=== PATIENT | male | born 1975 | race Caucasian/White ===

== ENCOUNTER → 2016-11-05 | Outpatient (CLI) | payer OTHER ==
[2016-11-05 08:15] LABS: CHLORIDE,CL 104 mmol/L (98-110); SODIUM,NA 139 mmol/L (136-146)
== END ==
LOC: MW.CHFP 07:32
PROVIDERS: ATTEND Student in an Organized Health Care Education/Training Program
DX: I10 Essential (primary) hypertension (principal); E78.00 Pure hypercholesterolemia, unspecified; E11.65 Type 2 diabetes mellitus with hyperglycemia; E11.69 Type 2 diabetes mellitus with other specified complication; E78.5 Hyperlipidemia, unspecified
CPT/HCPCS: 36415; 80053; 80061; 82044; 83036

== ENCOUNTER 2017-02-04 09:22 | Emergency (ER) | payer OTHER ==
[2017-02-04] MEDS ORDERED: Sodium Chloride 0.9% 10 ML Syringe FLUSH PRN (09:33)
[2017-02-04] MEDS ORDERED: Sodium Chloride 0.9% 2.5 ML Syringe FLUSH PRN (09:33)
[2017-02-04] MEDS ORDERED: Aspirin 81 MG Tab.Chew PO ONE (09:38)
--- NOTE | 2017-02-04 09:38 | EDM.PDOC ---
ED HPI GENERAL MEDICAL PROBLEM - General Stated Complaint: Palpitations Time Seen by Provider: 02/04/17 09:26 - History of Present Illness INITIAL COMMENTS - FREE TEXT/NARRATIVE: HISTORY AND PHYSICAL: History of present illness: The patient is a 41-year-old male with a history of diabetes and follows in our family practice clinic and also sees Dr. Eason with whom he had a incisional hernia repair several weeks ago and this patient presented to the clinic to see Dr. Eason today for a follow-up and he was noted to have an elevated heart rate. The patient admits that he has had palpitations and a racing heart episodically over the last few days occurring approximately 2-3 times a day and lasting 5-10 minutes. It never wakes him from sleep and he says he has a lot of stressors in his life. The patient states he feels short of breath but has been short of breath for his many months mostly with activity and that is not new with these palpitations. The patient doesn't feel lightheaded or dizzy has no abdominal pain except at the incision which is again not new and has had no vomiting or diarrhea. He does say that he has some calf tenderness but there is no gross swelling and otherwise here in the ED he is asymptomatic. Dr Eason personally brought him over from the clinic because he was concerned that his heart rate was near 200 in his clinic. At that time the patient had no symptomatology and he currently has a heart rate of 90 here but says he feels like he has some palpitations. In the ER the patient denies any complaints of any chest pain shortness of breath palpitations. Review of systems: As per history of present illness and below otherwise all systems reviewed and negative. Past medical history: As per history of present illness and as reviewed below otherwise noncontributory. Surgical history: As per history of present illness and as reviewed below otherwise noncontributory. Social history: No reported history of drug or alcohol abuse. Family history: As per history of present illness and as reviewed below otherwise noncontributory. Physical exam: Gen.: Well-developed obese man who is nontoxic and speaking clearly. Vital signs been noted by me. HEENT: Atraumatic, normocephalic, pupils reactive, negative for conjunctival pallor or scleral icterus, mucous membranes moist, throat clear, neck supple, nontender, trachea midline. Lungs: Clear to auscultation, breath sounds equal bilaterally, chest nontender. No worker breathing or sensory muscle use Heart: S1S2, regular, negative for clicks, rubs, or JVD. Abdomen: Soft, nondistended, nontender. There is a midline abdominal incision and an abdominal binder in place. Wound has some surrounding erythema but is nontender and bowel sounds are normoactive. Sutures are still seen in place. Negative for masses or hepatosplenomegaly. Negative for costovertebral tenderness. Pelvis: Stable nontender. Genitourinary: Deferred. Rectal: Deferred. Extremities: Atraumatic, negative for cords or calf pain. Neurovascular unremarkable. No pedal edema or leg asymmetry Neuro: Awake, alert, oriented. Cranial nerves II through XII unremarkable. Cerebellum unremarkable. Motor and sensory unremarkable throughout. Exam nonfocal. Diagnostics: EKG CBC CMP INR troponin TSH UA CTA of the chest Therapeutics: IV O2 monitor Patient currently is asymptomatic so I will only give aspirin I discussed all testing results with the patient and have offered him 23 hour observation admission or Holter monitor and follow up with his provider. States he has an appointment with Dr. Edilberto Gibson in the clinic on Wednesday. Unfortunately we do not have any Holter monitors available until Wednesday so the patient is aware of that as well. He states that he would prefer to defer admission and go home and follow-up with Dr. Gibson and have a Holter placed on Wednesday. I've advised him on risk benefits and he accepts those and he overall is a very anxious individual on my evaluation. In the ED he has not had a tachycardic rhythm and has been stable throughout the workup. I will discuss this case with Dr. Edilberto Gibson and get his input. 1232: Case was discussed with Dr. Edilberto Gibson and he feels comfortable with seeing the patient on Wednesday and request that a 48 hour Holter be placed on Wednesday. I told the patient about this conversation and again stressed reasons to return and reasons to keep his appointments on Wednesday Impression: Episodic palpitations stable Definitive disposition and diagnosis as appropriate pending reevaluation and review of above. - Related Data Allergies Allergy/AdvReac Type Severity Reaction Status Date / Time house dust Allergy Other Verified 02/04/17 09:46 mold Allergy Shortness Verified 02/04/17 09:46 of Breath dust Allergy Shortness Uncoded 02/04/17 09:46 of Breath Home Meds: Home Meds Lisinopril 10 mg PO DAILY 07/25/15 [History] metFORMIN [Glucophage] 1,000 mg PO BIDMEALS 07/30/15 [History] Acetaminophen/oxyCODONE [Percocet 325-10 MG] 1 tab PO Q4H PRN #40 tablet [Rx] Ondansetron [Zofran ODT] 4 mg PO Q4H #10 tab.dis 08/05/15 [Rx] Linezolid [Zyvox] 600 mg PO Q12H #28 tablet 08/30/15 [Rx] glipiZIDE [Glipizide ER] 2.5 mg PO DAILY 10/20/15 [History] Past Medical History HEENT History: Reports: Other (See Below) Other HEENT History: Wears eyeglasses Cardiovascular History: Reports: High Cholesterol, Hypertension Respiratory History: Reports: Asthma Other Respiratory History: seasonal asthma Other Gastrointestinal History: occasional heartburn Genitourinary History: Reports: None Musculoskeletal History: Reports: Arthritis Other Musculoskeletal History: arthritis in rt knee Neurological History: Reports: None Psychiatric History: Reports: Anxiety, Depression Endocrine/Metabolic History: Reports: Diabetes, Type II, Obesity/BMI 30+ Hematologic History: Reports: None Immunologic History: Reports: None Oncologic (Cancer) History: Reports: None Dermatologic History: Reports: None - Infectious Disease History Infectious Disease History: Reports: Chicken Pox, Influenza - Past Surgical History GI Surgical History: Reports: Hernia, Abdominal, Hernia, Inguinal, Hernia Repair /Other Social & Family History - Family History Family Medical History: Noncontributory HEENT: Reports: Cataract Cardiac: Reports: Heart Failure, Pacemaker Respiratory: Reports: Asthma, Other (See Below) Other Respiratory Family Hisory: Pneumonia GI: Reports: Diverticulitis : Reports: Renal Calculus Musculoskeletal: Reports: Arthritis Neurological: Reports: Migraines Psychiatric: Reports: Depression Endocrine/Metabolic: Reports: Diabetes, type II, Obesity/MBI 30+ Oncologic: Reports: Prostate, Renal - Tobacco Use Smoking Status *Q: Never Smoker Second Hand Smoke Exposure: No - Recreational Drug Use Recreational Drug Use: No Drug Use in Last 12 Months: No ED ROS GENERAL - Review of Systems Review Of Systems: ROS reveals no pertinent complaints other than HPI. (See dictation) ED EXAM, GENERAL - Physical Exam Exam: See Below (See dictation) Course - Vital Signs Last Recorded V/S: Last Vital Signs Temp 36.7 C 02/04/17 09:22 Pulse 95 02/04/17 09:22 Resp 23 H 02/04/17 09:22 BP 152/85 H 02/04/17 09:22 Pulse Ox 98 02/04/17 09:22 - Orders/Labs/Meds Orders: Active Orders 24 hr Category Date Time Status Cardiac Monitoring [RC] . DIRECTED Care 02/04/17 09:33 Active EKG Documentation Completion [RC] STAT Care 02/04/17 09:33 Active Oxygen Therapy, ED [RC] ASDIRECTED Care 02/04/17 09:33 Active Pulse Oximetry [RC] ASDIRECTED Care 02/04/17 09:33 Active Sodium Chloride 0.9% [Saline Flush] Med 02/04/17 09:33 Active 10 ml FLUSH ASDIRECTED PRN Sodium Chloride 0.9% [Saline Flush] Med 02/04/17 09:33 Active 2.5 ml FLUSH ASDIRECTED PRN Saline Lock Insert [OM.PC] Stat Oth 02/04/17 09:33 Ordered Medication Orders Sodium Chloride (Saline Flush) 10 ml FLUSH ASDIRECTED PRN PRN Reason: Keep Vein Open Sodium Chloride (Saline Flush) 2.5 ml FLUSH ASDIRECTED PRN PRN Reason: Keep Vein Open Labs: Laboratory Tests 02/04/17 02/04/17 02/04/17 Range/Units 09:46 09:46 09:46 WBC 7.11 (4.0-11.0) K/uL RBC 4.33 L (4.50-5.90) M/uL Hgb 12.3 L (13.0-17.0) g/dL Hct 38.8 (38.0-50.0) % MCV 89.6 (80.0-98.0) fL MCH 28.4 (27.0-32.0) pg MCHC 31.7 (31.0-37.0) g/dL RDW Std Deviation 45.8 (28.0-62.0) fl RDW Coeff of [place]isl[place] 14 (11.0-15.0) % Plt Count 264 (150-400) K/uL MPV 9.10 (7.40-12.00) fL Neut % (Auto) 74.3 (48.0-80.0) % Lymph % (Auto) 14.2 L (16.0-40.0) % [place] % (Auto) 11.1 (0.0-15.0) % Eos % (Auto) 0.0 (0.0-7.0) % Baso % (Auto) 0.4 (0.0-1.5) % Neut # (Auto) 5.3 (1.4-5.7) K/uL Lymph # (Auto) 1.0 (0.6-2.4) K/uL [place] # (Auto) 0.8 (0.0-0.8) K/uL Eos # (Auto) 0.0 (0.0-0.7) K/uL Baso # (Auto) 0.0 (0.0-0.1) K/uL Nucleated RBC % 0.0 /100WBC Nucleated RBCs # 0 K/uL INR 0.99 (0.86-1.11) Sodium 139 (136-146) mmol/L Potassium 4.7 (3.5-5.1) mmol/L Chloride 104 (98-110) mmol/L Carbon Dioxide 25 (21-31) mmol/L BUN 16 (6.0-23.0) mg/dL Creatinine 0.8 (0.6-1.5) mg/dL Est Cr Clr Drug Dosing 119.89 mL/min Estimated GFR (MDRD) > 60.0 ml/min Glucose 130 H (60-110) mg/dL Calcium 9.2 (8.8-10.8) mg/dL Total Bilirubin 0.5 (0.1-1.5) mg/dL AST 16 (5-40) IU/L ALT 24 (8-54) IU/L Alkaline Phosphatase 68 (40-150) Troponin I (0.0-0.29) NG/ML Total Protein 7.3 (6.0-8.0) g/dL Albumin 4.1 (3.5-5.0) g/dL Globulin 3.2 (2.0-3.5) g/dL Albumin/Globulin Ratio 1.3 (1.3-2.8) TSH 3rd Generation 1.47 (0.47-5.0) uIU/mL Urine Color Urine Appearance Urine pH (5.0-8.0) Ur Specific Burton (1.001-1.035) Urine Protein (NEGATIVE) mg/dL Urine Glucose (UA) (NEGATIVE) mg/dL Urine Ketones (NEGATIVE) mg/dL Urine Occult Blood (NEGATIVE) Urine Nitrite (NEGATIVE) Urine Bilirubin (NEGATIVE) Urine Urobilinogen (<2.0) EU/dL Ur Leukocyte Esterase (NEGATIVE) Urine RBC (0-2/HPF) Urine WBC (0-5/HPF) Ur Epithelial Cells (NONE-FEW) Urine Bacteria (NEGATIVE) 02/04/17 02/04/17 Range/Units 09:46 10:46 WBC (4.0-11.0) K/uL RBC (4.50-5.90) M/uL Hgb (13.0-17.0) g/dL Hct (38.0-50.0) % MCV (80.0-98.0) fL MCH (27.0-32.0) pg MCHC (31.0-37.0) g/dL RDW Std Deviation (28.0-62.0) fl RDW Coeff of [place]isl[place] (11.0-15.0) % Plt Count (150-400) K/uL MPV (7.40-12.00) fL Neut % (Auto) (48.0-80.0) % Lymph % (Auto) (16.0-40.0) % [place] % (Auto) (0.0-15.0) % Eos % (Auto) (0.0-7.0) % Baso % (Auto) (0.0-1.5) % Neut # (Auto) (1.4-5.7) K/uL Lymph # (Auto) (0.6-2.4) K/uL [place] # (Auto) (0.0-0.8) K/uL Eos # (Auto) (0.0-0.7) K/uL Baso # (Auto) (0.0-0.1) K/uL Nucleated RBC % /100WBC Nucleated RBCs # K/uL INR (0.86-1.11) Sodium (136-146) mmol/L Potassium (3.5-5.1) mmol/L Chloride (98-110) mmol/L Carbon Dioxide (21-31) mmol/L BUN (6.0-23.0) mg/dL Creatinine (0.6-1.5) mg/dL Est Cr Clr Drug Dosing mL/min Estimated GFR (MDRD) ml/min Glucose (60-110) mg/dL Calcium (8.8-10.8) mg/dL Total Bilirubin (0.1-1.5) mg/dL AST (5-40) IU/L ALT (8-54) IU/L Alkaline Phosphatase (40-150) Troponin I < 0.10 (0.0-0.29) NG/ML Total Protein (6.0-8.0) g/dL Albumin (3.5-5.0) g/dL Globulin (2.0-3.5) g/dL Albumin/Globulin Ratio (1.3-2.8) TSH 3rd Generation (0.47-5.0) uIU/mL Urine Color YELLOW Urine Appearance CLEAR Urine pH 5.5 (5.0-8.0) Ur Specific [place] <= 1.005 (1.001-1.035) Urine Protein NEGATIVE (NEGATIVE) mg/dL Urine Glucose (UA) NEGATIVE (NEGATIVE) mg/dL Urine Ketones NEGATIVE (NEGATIVE) mg/dL Urine Occult Blood NEGATIVE (NEGATIVE) Urine Nitrite NEGATIVE (NEGATIVE) Urine Bilirubin NEGATIVE (NEGATIVE) Urine Urobilinogen 0.2 (<2.0) EU/dL Ur Leukocyte Esterase NEGATIVE (NEGATIVE) Urine RBC 0-1 (0-2/HPF) Urine WBC 0-1 (0-5/HPF) Ur Epithelial Cells RARE (NONE-FEW) Urine Bacteria FEW (NEGATIVE) Meds: Medications Generic Name Dose Route Start Last Admin Trade Name Herbert PRN Reason Stop Dose Admin Sodium Chloride 10 ml 02/04/17 09:33 Saline Flush FLUSH ASDIRECTED PRN Keep Vein Open Sodium Chloride 2.5 ml 02/04/17 09:33 Saline Flush FLUSH ASDIRECTED PRN Keep Vein Open Discontinued Medications Generic Name Dose Route Start Last Admin Trade Name Herbert PRN Reason Stop Dose Admin Aspirin 324 mg 02/04/17 09:38 02/04/17 10:02 Aspirin PO 02/04/17 09:39 324 mg ONETIME ONE Administration Iopamidol 100 ml 02/04/17 11:19 02/04/17 11:21 Isovue Multipack-370 (76%) IVPUSH 02/04/17 11:20 100 ml ONETIME STA Administration Departure - Departure Time of Disposition: 12:34 Disposition: Home, Self-Care 01 Condition: Good Clinical Impression: Palpitations - Discharge Information Referrals: PCP,None [Primary Care Provider] - Additional Instructions: The following information is given to patients seen in the emergency department who are being discharged to home. This information is to outline your options for follow-up care. We provide all patients seen in our emergency department with a follow-up referral. The need for follow-up, as well as the timing and circumstances, are variable depending upon the specifics of your emergency department visit. If you don't have a primary care physician on staff, we will provide you with a referral. We always advise you to contact your personal physician following an emergency department visit to inform them of the circumstance of the visit and for follow-up with them and/or the need for any referrals to a consulting specialist. The emergency department will also refer you to a specialist when appropriate. This referral assures that you have the opportunity for followup care with a specialist. All of these measure are taken in an effort to provide you with optimal care, which includes your followup. Under all circumstances we always encourage you to contact your private physician who remains a resource for coordinating your care. When calling for followup care, please make the office aware that this follow-up is from your recent emergency room visit. If for any reason you are refused follow-up, please contact the [facility] emergency department at and ask to speak to the emergency department charge nurse. [facility] Primary care- Internal Medicine and Family [address] [address] Please keep your appointment on Wednesday morning with Dr. Edilberto Gibson and return to ER as needed and as discussed. Try to reduce stressors in her life and avoid caffeine use. Please go on Wednesday to have a Holter monitor placed as we discussed. - My Orders Last 24 Hours: My Active Orders 02/04/17 09:33 Cardiac Monitoring [RC] . DIRECTED EKG Documentation Completion [RC] STAT Oxygen Therapy, ED [RC] ASDIRECTED Pulse Oximetry [RC] ASDIRECTED Sodium Chloride 0.9% [Saline Flush] 10 ml FLUSH ASDIRECTED PRN Sodium Chloride 0.9% [Saline Flush] 2.5 ml FLUSH ASDIRECTED PRN Saline Lock Insert [OM.PC] Stat - Assessment/Plan Last 24 Hours: My Active Orders 02/04/17 09:33 Cardiac Monitoring [RC] . DIRECTED EKG Documentation Completion [RC] STAT Oxygen Therapy, ED [RC] ASDIRECTED Pulse Oximetry [RC] ASDIRECTED Sodium Chloride 0.9% [Saline Flush] 10 ml FLUSH ASDIRECTED PRN Sodium Chloride 0.9% [Saline Flush] 2.5 ml FLUSH ASDIRECTED PRN Saline Lock Insert [OM.PC] Stat
[2017-02-04 10:17] LABS: CHLORIDE,CL 104 mmol/L (98-110); SODIUM,NA 139 mmol/L (136-146)
[2017-02-04] MEDS ORDERED: Iopamidol 755 MG/ML 500 ML Multipack Bottle IVPUSH STA (11:19)
--- NOTE | 2017-02-04 11:46 | CT ---
EXAMINATION: CTA chest HISTORY: Pain COMPARISON: 08/02/2015 TECHNIQUE: Axial CT images obtained through the chest following the administration of 50 mL of Isovu e-370. Additional 50 mL of Isovue-370 used to repeat study. Coronal and sagittal reconstructions obt ained. Mildly suboptimal bolus timing. FINDINGS: The lungs are clear without focal consolidation. No pleural effusion or pneumothorax. Mild dependent atelectasis. The heart is normal in size without a pericardial effusion. No mediastinal o r hilar lymphadenopathy. The main and central pulmonary arteries are patent without evidence of a pu lmonary embolism. The thoracic the central airways are clear. The thoracic aorta is normal in calibe r. Borderline axillary lymph nodes noted. The central airways are clear. No suspicious osseous abnor malities identified. IMPRESSION: 1. No acute cardiopulmonary process or pulmonary embolism identified. 2. A few borderline axillary lymph nodes bilaterally, given the size, likely reactive.
[2017-02-04 14:35] VITALS: BP 122/73
== END 2017-02-04 13:00 | disposition home or self-care (01) ==
LOC: MW.ED 09:22
DX: R00.2 Palpitations (principal); I10 Essential (primary) hypertension; E78.00 Pure hypercholesterolemia, unspecified; J45.909 Unspecified asthma, uncomplicated; M19.90 Unspecified osteoarthritis, unspecified site; F41.9 Anxiety disorder, unspecified; F32.9 Major depressive disorder, single episode, unspecified; E11.9 Type 2 diabetes mellitus without complications; E66.9 Obesity, unspecified; Z98.890 Other specified postprocedural states; Z79.84 Long term (current) use of oral hypoglycemic drugs; Z79.899 Other long term (current) drug therapy; Z91.09 Other allergy status, other than to drugs and biological substances
CPT/HCPCS: 36415; 71275; 80053; 81001; 84443; 84484; 85025; 85610; 93005; 99285; A9270; Q9967; 99284

== ENCOUNTER 2019-06-08 19:53 | Emergency (ER) | payer OTHER ==
[2019-06-08] MEDS ORDERED: Sodium Chloride 0.9% 1,000 ML IV ONE (20:05)
--- NOTE | 2019-06-08 20:10 | EDM.PDOC ---
<Micheal Lima - Last Filed: 06/08/19 22:40> ED HPI GENERAL MEDICAL PROBLEM - General Chief Complaint: Gastrointestinal Problem Stated Complaint: POST SURG. INFECTION Time Seen by Provider: 06/08/19 19:58 - Related Data Allergies Allergy/AdvReac Type Severity Reaction Status Date / Time house dust Allergy Other Verified 06/08/19 20:04 mold Allergy Shortness Verified 06/08/19 20:04 of Breath dust Allergy Shortness Uncoded 06/08/19 20:04 of Breath Home Meds: Home Meds Lisinopril 10 mg PO DAILY 07/25/15 [History] metFORMIN [Glucophage] 1,000 mg PO BIDMEALS 07/30/15 [History] Ondansetron [Zofran ODT] 4 mg PO Q4H #10 tab.dis 08/05/15 [Rx] glipiZIDE [Glipizide ER] 2.5 mg PO DAILY 10/20/15 [History] traMADol [Ultram] 50 mg PO ASDIRECTED 06/08/19 [History] Course - Vital Signs Text/Narrative:: CT scan demonstrated drain located in deep subcutaneous tissues of the upper pelvic wall there was gas in the soft tissues adjacent to the drain but no fluid collection there is moderate inflammatory changes around the catheter in the adjacent subcutaneous fat consistent with cellulitis this was discussed with Dr. Yanes general surgery was consulted who agrees with discharge home on and follow-up on Wednesday Last Recorded V/S: Last Vital Signs Temp 98.1 F 06/08/19 23:40 Pulse 99 06/08/19 23:40 Resp 16 06/08/19 23:40 BP 128/70 06/08/19 23:40 Pulse Ox 99 06/08/19 23:40 - Orders/Labs/Meds Labs: Laboratory Tests 06/08/19 06/08/19 06/08/19 Range/Units 20:16 20:16 20:16 WBC 9.28 (4.0-11.0) K/uL RBC 4.36 L (4.50-5.90) M/uL Hgb 12.9 L (13.0-17.0) g/dL Hct 40.1 (38.0-50.0) % MCV 92.0 (80.0-98.0) fL MCH 29.6 (27.0-32.0) pg MCHC 32.2 (31.0-37.0) g/dL RDW Std Deviation 45.6 (28.0-62.0) fl RDW Coeff of Aislinn 14 (11.0-15.0) % Plt Count 191 (150-400) K/uL MPV 9.90 (7.40-12.00) fL Neut % (Auto) 70.0 (48.0-80.0) % Lymph % (Auto) 16.1 (16.0-40.0) % Harvey % (Auto) 10.8 (0.0-15.0) % Eos % (Auto) 3.0 (0.0-7.0) % Baso % (Auto) 0.1 (0.0-1.5) % Neut # (Auto) 6.5 H (1.4-5.7) K/uL Lymph # (Auto) 1.5 (0.6-2.4) K/uL Harvey # (Auto) 1.0 H (0.0-0.8) K/uL Eos # (Auto) 0.3 (0.0-0.7) K/uL Baso # (Auto) 0.0 (0.0-0.1) K/uL Nucleated RBC % 0.0 /100WBC Nucleated RBCs # 0 K/uL Lactate 2.1 H (0.20-2.00) mmol/L Sodium 139 (136-148) mmol/L Potassium 4.1 (3.5-5.1) mmol/L Chloride 103 (98-107) mmol/L Carbon Dioxide 25.4 (21.0-32.0) mmol/L BUN 22 H (7.0-18.0) mg/dL Creatinine 0.8 (0.8-1.3) mg/dL Est Cr Clr Drug Dosing 116.61 mL/min Estimated GFR (MDRD) > 60.0 ml/min Glucose 211 H (74-106) mg/dL Calcium 8.3 L (8.5-10.1) mg/dL Total Bilirubin 0.3 (0.2-1.0) mg/dL AST 15 (15-37) IU/L ALT 25 (14-63) IU/L Alkaline Phosphatase 75 (46-116) U/L Total Protein 7.0 (6.4-8.2) g/dL Albumin 2.8 L (3.4-5.0) g/dL Globulin 4.2 H (2.6-4.0) g/dL Albumin/Globulin Ratio 0.7 L (0.9-1.6) Urine Color Urine Appearance Urine pH (5.0-8.0) Ur Specific Berne (1.001-1.035) Urine Protein (NEGATIVE) mg/dL Urine Glucose (UA) (NEGATIVE) mg/dL Urine Ketones (NEGATIVE) mg/dL Urine Occult Blood (NEGATIVE) Urine Nitrite (NEGATIVE) Urine Bilirubin (NEGATIVE) Urine Urobilinogen (<2.0) EU/dL Ur Leukocyte Esterase (NEGATIVE) 06/08/19 Range/Units 20:50 WBC (4.0-11.0) K/uL RBC (4.50-5.90) M/uL Hgb (13.0-17.0) g/dL Hct (38.0-50.0) % MCV (80.0-98.0) fL MCH (27.0-32.0) pg MCHC (31.0-37.0) g/dL RDW Std Deviation (28.0-62.0) fl RDW Coeff of Aislinn (11.0-15.0) % Plt Count (150-400) K/uL MPV (7.40-12.00) fL Neut % (Auto) (48.0-80.0) % Lymph % (Auto) (16.0-40.0) % Harvey % (Auto) (0.0-15.0) % Eos % (Auto) (0.0-7.0) % Baso % (Auto) (0.0-1.5) % Neut # (Auto) (1.4-5.7) K/uL Lymph # (Auto) (0.6-2.4) K/uL Harvey # (Auto) (0.0-0.8) K/uL Eos # (Auto) (0.0-0.7) K/uL Baso # (Auto) (0.0-0.1) K/uL Nucleated RBC % /100WBC Nucleated RBCs # K/uL Lactate (0.20-2.00) mmol/L Sodium (136-148) mmol/L Potassium (3.5-5.1) mmol/L Chloride (98-107) mmol/L Carbon Dioxide (21.0-32.0) mmol/L BUN (7.0-18.0) mg/dL Creatinine (0.8-1.3) mg/dL Est Cr Clr Drug Dosing mL/min Estimated GFR (MDRD) ml/min Glucose (74-106) mg/dL Calcium (8.5-10.1) mg/dL Total Bilirubin (0.2-1.0) mg/dL AST (15-37) IU/L ALT (14-63) IU/L Alkaline Phosphatase (46-116) U/L Total Protein (6.4-8.2) g/dL Albumin (3.4-5.0) g/dL Globulin (2.6-4.0) g/dL Albumin/Globulin Ratio (0.9-1.6) Urine Color YELLOW Urine Appearance CLEAR Urine pH 5.5 (5.0-8.0) Ur Specific Berne 1.025 (1.001-1.035) Urine Protein NEGATIVE (NEGATIVE) mg/dL Urine Glucose (UA) NEGATIVE (NEGATIVE) mg/dL Urine Ketones TRACE H (NEGATIVE) mg/dL Urine Occult Blood NEGATIVE (NEGATIVE) Urine Nitrite NEGATIVE (NEGATIVE) Urine Bilirubin NEGATIVE (NEGATIVE) Urine Urobilinogen 0.2 (<2.0) EU/dL Ur Leukocyte Esterase NEGATIVE (NEGATIVE) Meds: Medications Discontinued Medications Generic Name Dose Route Start Last Admin Trade Name Freq PRN Reason Stop Dose Admin Sodium Chloride 1,000 mls @ 999 mls/hr 06/08/19 20:05 06/08/19 20:24 Normal Saline IV 06/08/19 21:05 150 mls/hr STAT ONE Administration Cefazolin Sodium/Dextrose 1 gm 50 mls @ 100 mls/hr 06/08/19 22:54 06/08/19 23 :00 / Premix IV 06/08/19 23:23 100 mls/hr ONETIME ONE Administration Iopamidol 100 ml 06/08/19 21:52 06/08/19 21:53 Isovue Multipack-370 (76%) IVPUSH 06/08/19 21:53 100 ml ONETIME STA Administration Departure - Departure Time of Disposition: 22:42 Disposition: Home, Self-Care 01 Condition: Good Clinical Impression: History of diabetes mellitus, type II Cellulitis Qualifiers: Site of cellulitis: trunk Site of cellulitis of trunk: abdominal wall Qualified Code(s): L03.311 - Cellulitis of abdominal wall - Discharge Information Instructions: Cellulitis, Adult, [id number] Referrals: PCP,None [Primary Care Provider] - Forms: ED Department Discharge Additional Instructions: The following information is given to patients seen in the emergency department who are being discharged to home. This information is to outline your options for follow-up care. We provide all patients seen in our emergency department with a follow-up referral. The need for follow-up, as well as the timing and circumstances, are variable depending upon the specifics of your emergency department visit. If you don't have a primary care physician on staff, we will provide you with a referral. We always advise you to contact your personal physician following an emergency department visit to inform them of the circumstance of the visit and for follow-up with them and/or the need for any referrals to a consulting specialist. The emergency department will also refer you to a specialist when appropriate. This referral assures that you have the opportunity for follow-up care with a specialist. All of these measure are taken in an effort to provide you with optimal care, which includes your follow-up. Under all circumstances we always encourage you to contact your private physician who remains a resource for coordinating your care. When calling for follow-up care, please make the office aware that this follow-up is from your recent emergency room visit. If for any reason you are refused follow-up, please contact the [facility] Emergency Department at and asked to speak to the emergency department charge nurse. [facility] [address] [place] [id number] [id number] 1. Please keep the wound clean and dry, continue to perform wound care as previously done. 2. Take the antibiotic as directed. Continue to monitor for signs of improvement. 3. Call and see if you can make an expedite appointment with your surgeon in [place] for re-evaluation. 4. Return to the ED as needed as discussed. 5 follow-up in clinic on Wednesday [facility] - General Surgery Professional Building [address] [place] [address], [address] [place] [address] <Risa Dale E - Last Filed: 06/12/19 11:18> ED HPI GENERAL MEDICAL PROBLEM - General Source of Information: Reports: Patient History Limitations: Reports: No Limitations - History of Present Illness INITIAL COMMENTS - FREE TEXT/NARRATIVE: HISTORY AND PHYSICAL: History of present illness: Patient is a 44-year-old male who presents to the emergency room with concerns of increased drainage from a post surgical site. Patient reports he had a mass removed from his umbilicus area on 06/01/[address] Clancy at [facility]. Has history of multiple previous hernia surgeries. This surgery has a midline incision and an adjacent SENAIT drain to the left abdomen. Over the past several days following his surgery he had been inactive and had about 60mls of drainage per day coming from the SENAIT drain. Wednesday and Wednesday he returned to work and had increased his activity which also increased the drainage coming from the SENAIT site. He states he also noticed that his blood sugars have been running in the 200s which is high for him. He does take oral metformin (no insulin) to manage his diabetes. Noticed his urine was foul smelling and felt like he wasn't fully emptying his bladder. He called the surgeon in [place] and spoke with the nurse who stated that he should be evaluated for his concerns today. Patient reports his family encouraged him to come to the emergency room instead of waiting to follow-up with his surgeon. Patient denies any fever, chills, headache, change in vision, syncope or near syncope. Denies any chest pain, back pain, shortness of breath or cough. Denies any new abdominal pain, nausea, vomiting, diarrhea, constipation or dysuria. Has not noted any blood in urine or stool. Patient has been eating and drinking appropriately. Review of systems: As per history of present illness and below otherwise all systems reviewed and negative. Past medical history: As per history of present illness and as reviewed below otherwise noncontributory. Surgical history: As per history of present illness and as reviewed below otherwise noncontributory. Social history: See social history for further information Family history: As per history of present illness and as reviewed below otherwise noncontributory. Physical exam: General: Well-developed and well-nourished 44-year-old male. Alert and oriented. Nontoxic appearing and in no acute distress. HEENT: Atraumatic, normocephalic, pupils equal and reactive bilaterally, negative for conjunctival pallor or scleral icterus, mucous membranes moist, trachea midline. No drooling or trismus noted. No meningeal signs. No hot potato voice noted. Lungs: Clear to auscultation, breath sounds equal bilaterally, chest nontender. Heart: S1S2, regular rate and rhythm without overt murmur Abdomen: Soft, nondistended, obese, nontender. See SKIN for details. Negative for masses. Negative for costovertebral tenderness. Pelvis: Stable nontender. Skin: Midline abdominal incision, skin is well approximate with minimal surrounding erythema. No drainage from this site. Puncture wound with SENAIT drain to left mid abdomen, draining serosanguineous drainage. Otherwise skin is intact , warm, dry. No lesions or rashes noted. Extremities: Atraumatic, moves all extremities per self without difficulty or deficits, negative for cords or calf pain. Neurovascular unremarkable. Neuro: Awake, alert, oriented. Cranial nerves II through XII unremarkable. Cerebellum unremarkable. Motor and sensory unremarkable throughout. Exam nonfocal. Notes: Patient reports his follow up appointment with his surgeon is on July 30, 2019. Lab work has been reviewed. Patient has no WBC, no abdomen pain. Dr Eason was consulted on this case, he has come and see this patient. Dr Eason believes this patient can be d/c to home as long as there are no acute findings on his CT scan. Dr Lima to follow the CT scan results and disposition patient appropriately. Diagnostics: CBC, CMP, Lactic, BC x 2, EKG, CT abd/pelvis Therapeutics: IV fluids, Keflex Prescription: Keflex Impression: Cellulitis History of DM Type 2 Plan: 1. Please keep the wound clean and dry, continue to perform wound care as previously done. 2. Take the antibiotic as directed. Continue to monitor for signs of improvement. 3. Call and see if you can make an expedite appointment with your surgeon in [place] for re-evaluation. 4. Return to the ED as needed as discussed. Definitive disposition and diagnosis as appropriate pending reevaluation and review of above. Middle Abdominal Pain Score (Numeric/FACES): 6 Past Medical History HEENT History: Reports: Other (See Below) Other HEENT History: Wears eyeglasses Cardiovascular History: Reports: High Cholesterol, Hypertension Respiratory History: Reports: Asthma Other Respiratory History: seasonal asthma Gastrointestinal History: Reports: GERD Other Gastrointestinal History: occasional heartburn Genitourinary History: Reports: None Musculoskeletal History: Reports: Arthritis Other Musculoskeletal History: arthritis in rt knee Neurological History: Reports: None Psychiatric History: Reports: Anxiety, Depression Endocrine/Metabolic History: Reports: Diabetes, Type II, Obesity/BMI 30+ Hematologic History: Reports: None Immunologic History: Reports: None Oncologic (Cancer) History: Reports: None Dermatologic History: Reports: None - Infectious Disease History Infectious Disease History: Reports: Chicken Pox, Influenza - Past Surgical History GI Surgical History: Reports: Hernia, Abdominal, Hernia, Inguinal, Hernia Repair /Other Social & Family History - Family History Family Medical History: Noncontributory HEENT: Reports: Cataract Cardiac: Reports: Heart Failure, Pacemaker Respiratory: Reports: Asthma, Other (See Below) Other Respiratory Family Hisory: Pneumonia GI: Reports: Diverticulitis : Reports: Renal Calculus Musculoskeletal: Reports: Arthritis Neurological: Reports: Migraines Psychiatric: Reports: Depression Endocrine/Metabolic: Reports: Diabetes, type II, Obesity/MBI 30+ Oncologic: Reports: Prostate, Renal ED ROS GENERAL - Review of Systems Review Of Systems: ROS reveals no pertinent complaints other than HPI. ED EXAM, SKIN/RASH Exam: See Below (See dictation) Course - Vital Signs Last Recorded V/S: Last Vital Signs Temp 98.1 F 06/08/19 23:40 Pulse 99 06/08/19 23:40 Resp 16 06/08/19 23:40 BP 128/70 06/08/19 23:40 Pulse Ox 99 06/08/19 23:40 - Orders/Labs/Meds Labs: Laboratory Tests 06/08/19 06/08/19 06/08/19 Range/Units 20:16 20:16 20:16 WBC 9.28 (4.0-11.0) K/uL RBC 4.36 L (4.50-5.90) M/uL Hgb 12.9 L (13.0-17.0) g/dL Hct 40.1 (38.0-50.0) % MCV 92.0 (80.0-98.0) fL MCH 29.6 (27.0-32.0) pg MCHC 32.2 (31.0-37.0) g/dL RDW Std Deviation 45.6 (28.0-62.0) fl RDW Coeff of Aislinn 14 (11.0-15.0) % Plt Count 191 (150-400) K/uL MPV 9.90 (7.40-12.00) fL Neut % (Auto) 70.0 (48.0-80.0) % Lymph % (Auto) 16.1 (16.0-40.0) % Harvey % (Auto) 10.8 (0.0-15.0) % Eos % (Auto) 3.0 (0.0-7.0) % Baso % (Auto) 0.1 (0.0-1.5) % Neut # (Auto) 6.5 H (1.4-5.7) K/uL Lymph # (Auto) 1.5 (0.6-2.4) K/uL Harvey # (Auto) 1.0 H (0.0-0.8) K/uL Eos # (Auto) 0.3 (0.0-0.7) K/uL Baso # (Auto) 0.0 (0.0-0.1) K/uL Nucleated RBC % 0.0 /100WBC Nucleated RBCs # 0 K/uL Lactate 2.1 H (0.20-2.00) mmol/L Sodium 139 (136-148) mmol/L Potassium 4.1 (3.5-5.1) mmol/L Chloride 103 (98-107) mmol/L Carbon Dioxide 25.4 (21.0-32.0) mmol/L BUN 22 H (7.0-18.0) mg/dL Creatinine 0.8 (0.8-1.3) mg/dL Est Cr Clr Drug Dosing 116.61 mL/min Estimated GFR (MDRD) > 60.0 ml/min Glucose 211 H (74-106) mg/dL Calcium 8.3 L (8.5-10.1) mg/dL Total Bilirubin 0.3 (0.2-1.0) mg/dL AST 15 (15-37) IU/L ALT 25 (14-63) IU/L Alkaline Phosphatase 75 (46-116) U/L Total Protein 7.0 (6.4-8.2) g/dL Albumin 2.8 L (3.4-5.0) g/dL Globulin 4.2 H (2.6-4.0) g/dL Albumin/Globulin Ratio 0.7 L (0.9-1.6) Urine Color Urine Appearance Urine pH (5.0-8.0) Ur Specific Berne (1.001-1.035) Urine Protein (NEGATIVE) mg/dL Urine Glucose (UA) (NEGATIVE) mg/dL Urine Ketones (NEGATIVE) mg/dL Urine Occult Blood (NEGATIVE) Urine Nitrite (NEGATIVE) Urine Bilirubin (NEGATIVE) Urine Urobilinogen (<2.0) EU/dL Ur Leukocyte Esterase (NEGATIVE) 06/08/19 Range/Units 20:50 WBC (4.0-11.0) K/uL RBC (4.50-5.90) M/uL Hgb (13.0-17.0) g/dL Hct (38.0-50.0) % MCV (80.0-98.0) fL MCH (27.0-32.0) pg MCHC (31.0-37.0) g/dL RDW Std Deviation (28.0-62.0) fl RDW Coeff of Aislinn (11.0-15.0) % Plt Count (150-400) K/uL MPV (7.40-12.00) fL Neut % (Auto) (48.0-80.0) % Lymph % (Auto) (16.0-40.0) % Harvey % (Auto) (0.0-15.0) % Eos % (Auto) (0.0-7.0) % Baso % (Auto) (0.0-1.5) % Neut # (Auto) (1.4-5.7) K/uL Lymph # (Auto) (0.6-2.4) K/uL Harvey # (Auto) (0.0-0.8) K/uL Eos # (Auto) (0.0-0.7) K/uL Baso # (Auto) (0.0-0.1) K/uL Nucleated RBC % /100WBC Nucleated RBCs # K/uL Lactate (0.20-2.00) mmol/L Sodium (136-148) mmol/L Potassium (3.5-5.1) mmol/L Chloride (98-107) mmol/L Carbon Dioxide (21.0-32.0) mmol/L BUN (7.0-18.0) mg/dL Creatinine (0.8-1.3) mg/dL Est Cr Clr Drug Dosing mL/min Estimated GFR (MDRD) ml/min Glucose (74-106) mg/dL Calcium (8.5-10.1) mg/dL Total Bilirubin (0.2-1.0) mg/dL AST (15-37) IU/L ALT (14-63) IU/L Alkaline Phosphatase (46-116) U/L Total Protein (6.4-8.2) g/dL Albumin (3.4-5.0) g/dL Globulin (2.6-4.0) g/dL Albumin/Globulin Ratio (0.9-1.6) Urine Color YELLOW Urine Appearance CLEAR Urine pH 5.5 (5.0-8.0) Ur Specific Berne 1.025 (1.001-1.035) Urine Protein NEGATIVE (NEGATIVE) mg/dL Urine Glucose (UA) NEGATIVE (NEGATIVE) mg/dL Urine Ketones TRACE H (NEGATIVE) mg/dL Urine Occult Blood NEGATIVE (NEGATIVE) Urine Nitrite NEGATIVE (NEGATIVE) Urine Bilirubin NEGATIVE (NEGATIVE) Urine Urobilinogen 0.2 (<2.0) EU/dL Ur Leukocyte Esterase NEGATIVE (NEGATIVE) Meds: Medications Discontinued Medications Generic Name Dose Route Start Last Admin Trade Name Freq PRN Reason Stop Dose Admin Sodium Chloride 1,000 mls @ 999 mls/hr 06/08/19 20:05 06/08/19 20:24 Normal Saline IV 06/08/19 21:05 150 mls/hr STAT ONE Administration Cefazolin Sodium/Dextrose 1 gm 50 mls @ 100 mls/hr 06/08/19 22:54 06/08/19 23 :00 / Premix IV 06/08/19 23:23 100 mls/hr ONETIME ONE Administration Iopamidol 100 ml 06/08/19 21:52 06/08/19 21:53 Isovue Multipack-370 (76%) IVPUSH 06/08/19 21:53 100 ml ONETIME STA Administration
[2019-06-08 21:00] LABS: BLOOD UREA NITROGEN,BUN 22 mg/dL (7.0-18.0); CARBON DIOXIDE,CO2 25.4 mmol/L (21.0-32.0); CHLORIDE,CL 103 mmol/L (98-107); GLUCOSE RANDOM 211 mg/dL (74-106); POTASSIUM,K 4.1 mmol/L (3.5-5.1); SODIUM,NA 139 mmol/L (136-148)
--- NOTE | 2019-06-08 21:11 | PCM.SN ---
- Free Text/Narrative Note: pt seen, chart reviewed; await ct a/p w iv contrast
[2019-06-08] MEDS ORDERED: Iopamidol 755 MG/ML 500 ML Multipack Bottle IVPUSH STA (21:52)
--- NOTE | 2019-06-08 22:13 | CT ---
INDICATION: Status post surgical drainage 1 week ago. Rule out abscess. COMPARISON: 08/25/2015 TECHNIQUE: CT examination of the abdomen and pelvis was performed with the uneventful intravenous administration of 100 cc of Isovue 370 while 3 mm thick axial sections were obtained from the lung bases through the pubic symphysis. Oral contrast was not administered. Please note that all CT scans at this facility use dose modulation, iterative reconstruction, and/or weight-based dosing when appropriate to reduce radiation dose to as low as reasonably achievable. FINDINGS: There has been mesh hernia repair of the large ventral wall hernia involving the anterior abdominal and pelvic lepe. There is no sign of recurrence of a hernia. There is a drain located in the deep subcutaneous tissues in the periumbilical region, with small bubbles of gas in a cavity located around the drain. There is no sign of any fluid collection to suggest an abscess. There is moderate soft tissue stranding around the cavity in the deep subcutaneous tissues consistent with cellulitis. There is no sign of infection of the muscular structures or intraperitoneal structures posterior to the cellulitis. The previously seen multiloculated fluid collections are no longer present. In the abdomen, the liver, spleen, pancreas, and adrenals are normal in appearance. The kidneys are normal in appearance. The gallbladder is collapsed and is otherwise normal in appearance. The abdominal aorta is normal in caliber with no sign of dilatation. There is no sign of retroperitoneal mass or adenopathy. The stomach, loops of small bowel, and colon in the abdomen are normal in appearance. In the pelvis, the retrocecal appendix is normal in appearance with no sign of inflammatory process.. Again seen is a small bowel anastomosis in the left mid pelvis with no sign of any stricture. There is moderate sigmoid diverticulosis without evidence of diverticulitis, more prominent than on the previous study. The loops of small bowel and colon in the pelvis are otherwise normal in appearance. The prostate is normal in appearance. The urinary bladder is normal in appearance. There is no sign of pelvic or inguinal mass or adenopathy. The lung bases are clear. There is no change in minimal posterior subluxation of L5 on S1. There is no change in mild L4-5 and L5-S1 disc degenerative disease. IMPRESSION: No sign of any postoperative fluid collection in the periumbilical anterior abdominal wall, with satisfactory positioning of a drain. Moderate cellulitis of the anterior periumbilical fat around the drain. Status post mesh hernia repair of the ventral abdominal and pelvic wall, with no sign of recurrence of the hernia. CT of the abdomen shows no sign of any additional abnormality. CT of the pelvis shows increase in sigmoid diverticulosis, now moderate, with no sign of diverticulitis. Small bowel anastomosis in the left mid pelvis, unchanged. Please note that all CT scans at this facility use dose modulation, iterative reconstruction, and/or weight-based dosing when appropriate to reduce radiation dose to as low as reasonably achievable. Dictated by Aaron Pierce MD @ Jun 08 2019 10:35PM Signed by Dr. Aaron Pierce @ Jun 08 2019 10:42PM
[2019-06-08] MEDS ORDERED: ceFAZolin 1 GM in Premix Bag 1 BAG IV ONE (22:54)
[2019-06-08 23:54] VITALS: BP 128/70; PULSE 99
--- NOTE | 2019-06-09 10:46 | CONS ---
DATE OF CONSULTATION: 06/08/2019 DATE OF : 1975 PRIMARY CARE PHYSICIAN: None PCP REASON FOR CONSULTATION: Consult from [facility], ER provider. Concerning question is MEGAN drainage. 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 The patient still has a mesh in his tummy, and the patient remarked that about 6 days ago, he was taken to the operating room in [facility] to remove some abdominal fluid. The whole procedure took about 1-1/2 hours. Postop, the MEGAN drainage was straw yellow according to the patient. In the last 48 hours, the MEGAN drainage turned champagne, and the patient was concerned and sought help in the emergency room. Denies nausea or vomiting. Denies fever or chills, but admits maybe there is a low-grade fever, he did not check, and absolutely denies any abdominal pain. Oral intake is fine and well-formed stool. PAST MEDICAL HISTORY: Significant for no diabetes, AL, or CVA. The patient has hypertension. PAST SURGICAL HISTORY: At least 3 times incisional hernia repair with mesh and removed, and currently, the patient still has a mesh in his tummy. SOCIAL HISTORY: Denies tobacco or alcohol abuse. FAMILY HISTORY: Noncontributory. ALLERGIES: Please refer to nursing for details. MEDICATIONS: Please refer to nursing for details. PHYSICAL EXAMINATION: GENERAL: A very pleasant gentleman, lying in bed very comfortably, in no acute distress. VITAL SIGNS: Temperature is 97.6. HEENT: Normocephalic, atraumatic. Sclerae anicteric. LUNGS: Clear to auscultation. HEART: Regular rate and rhythm. ABDOMEN: Soft, nondistended. No pulsating tender midline abdominal structure. Midline surgical incision and stitched to air, no cellulitis, nontender, no expressed material, no drainage. MEGAN site drainage is at the left lower quadrant, and MEGAN site is intact, no expressed material, no cellulitis. MEGAN output is champagne in color. Abdomen exam is nontender. LABORATORY VALUES UPON CONSULTATION: White count is 9,000, H and H are 13 and 40, platelet is 191,000. Lactate is 2.1. BUN is 19, creatinine is 0.9. A1c is 7.0. IMPRESSION: Change in color of the MEGAN drain 6 days after surgery, and for the time being, there is no clear sign of infection. We will recommend to have a repeat CAT scan, and depending on the finding on the CAT scan, we will follow the patient earlier if any signs or symptoms of infection. Within 6 to 7 days, the patient probably would benefit from return to the original surgeon for a closer followup and monitoring of the postop course. As always, thank you for your kind referral. Phone call from ED provider, ct showed no residual fluid, only bubbles around megan drains; recommend home on pain meds fu w in office ONEIDA / REGINA /[id number] TRISH
== END 2019-06-08 23:51 | disposition home or self-care (01) ==
LOC: MW.ED 19:53
DX: T81.49XA Infection following a procedure, other surgical site, initial encounter (principal); L03.311 Cellulitis of abdominal wall; I10 Essential (primary) hypertension; E11.9 Type 2 diabetes mellitus without complications; E66.01 Morbid (severe) obesity due to excess calories; Y83.8 Other surgical procedures as the cause of abnormal reaction of the patient, or of later complication, without mention of misadventure at the time of the procedure; Z68.42 Body mass index [BMI] 45.0-49.9, adult; Z79.84 Long term (current) use of oral hypoglycemic drugs; Z91.048 Other nonmedicinal substance allergy status; Z79.899 Other long term (current) drug therapy
CPT/HCPCS: 36415; 74177; 80053; 81003; 83605; 85025; 87040; 96361; 96365; 99284; J0690; J7040; Q9967

== ENCOUNTER 2019-06-24 19:44 | Emergency (ER) | payer OTHER ==
[2019-06-24 21:28] VITALS: BP 153/88; PULSE 99
--- NOTE | 2019-06-24 22:10 | EDM.PDOC ---
ED HPI GENERAL MEDICAL PROBLEM - General Chief Complaint: Wound Recheck Stated Complaint: REPLACEMENT Time Seen by Provider: 06/24/19 21:57 - History of Present Illness INITIAL COMMENTS - FREE TEXT/NARRATIVE: HISTORY AND PHYSICAL: History of present illness: The patient is a 44-year-old male with a history of multiple abdominal surgeries in the past and who had a recent surgery in [place] and follows her locally with Dr. Eason, and has a wound VAC in place and says he has been doing very well and the wound VAC has been doing a good job. He says that he was only given 5 canisters and he has run out of them and is here for wound VAC canisters. We checked with our nursing soft sugar supervisor and we do not have anything compatible for him and he says he would just like dressing changes to be done. He has no other systemic complaints and is only here for wound care. Review of systems: As per history of present illness and below otherwise all systems reviewed and negative. Past medical history: As per history of present illness and as reviewed below otherwise noncontributory. Surgical history: As per history of present illness and as reviewed below otherwise noncontributory. Social history: No reported history of drug or alcohol abuse. Family history: As per history of present illness and as reviewed below otherwise noncontributory. Physical exam: General: Well-developed well-nourished obese man who is nontoxic and vital signs were noted by me. HEENT: Atraumatic, normocephalic, negative for conjunctival pallor or scleral icterus, mucous membranes moist, throat clear, neck supple, nontender, trachea midline. Lungs: Clear to auscultation, breath sounds equal bilaterally, chest nontender. Heart: S1S2, regular rate and rhythm no overt murmurs Abdomen: Soft, nondistended, nontender. There is a wound VAC seen in the mid abdomen with no surrounding erythema or soft tissue swelling and there is no gross tenderness rebound or guarding on physical examination. Pelvis: Stable nontender. Genitourinary: Deferred. Rectal: Deferred. Extremities: Atraumatic, full range of motion. Neurovascular unremarkable. Neuro: Awake, alert, oriented. Cranial nerves II through XII unremarkable. Cerebellum unremarkable. Motor and sensory unremarkable throughout. Exam nonfocal. Diagnostics: [] Therapeutics: Wound VAC was removed and wet-to-dry dressing was performed by nursing and taught to the patient Impression: Abdominal wound evaluation/dressing change Definitive disposition and diagnosis as appropriate pending reevaluation and review of above. Abdominal Pain Score (Numeric/FACES): 4 - Related Data Allergies Allergy/AdvReac Type Severity Reaction Status Date / Time house dust Allergy Other Verified 06/24/19 21:22 mold Allergy Shortness Verified 06/24/19 21:22 of Breath dust Allergy Shortness Uncoded 06/24/19 21:22 of Breath Home Meds: Home Meds Lisinopril 10 mg PO DAILY 07/25/15 [History] metFORMIN [Glucophage] 1,000 mg PO BIDMEALS 07/30/15 [History] glipiZIDE [Glipizide ER] 2.5 mg PO DAILY 10/20/15 [History] Aspirin [Adult Low Dose Aspirin EC] 81 mg PO DAILY 06/24/19 [History] PARoxetine HCl [Paxil] 20 mg PO DAILY 06/24/19 [History] Past Medical History HEENT History: Reports: Other (See Below) Other HEENT History: Wears eyeglasses Cardiovascular History: Reports: High Cholesterol, Hypertension Respiratory History: Reports: Asthma Other Respiratory History: seasonal asthma Gastrointestinal History: Reports: GERD Other Gastrointestinal History: occasional heartburn Genitourinary History: Reports: None Musculoskeletal History: Reports: Arthritis Other Musculoskeletal History: arthritis in rt knee Neurological History: Reports: None Psychiatric History: Reports: Anxiety, Depression Endocrine/Metabolic History: Reports: Diabetes, Type II, Obesity/BMI 30+ Hematologic History: Reports: None Immunologic History: Reports: None Oncologic (Cancer) History: Reports: None Dermatologic History: Reports: None - Infectious Disease History Infectious Disease History: Reports: Chicken Pox, Influenza - Past Surgical History GI Surgical History: Reports: Hernia, Abdominal, Hernia, Inguinal, Hernia Repair /Other Social & Family History - Family History Family Medical History: Noncontributory HEENT: Reports: Cataract Cardiac: Reports: Heart Failure, Pacemaker Respiratory: Reports: Asthma, Other (See Below) Other Respiratory Family Hisory: Pneumonia GI: Reports: Diverticulitis : Reports: Renal Calculus Musculoskeletal: Reports: Arthritis Neurological: Reports: Migraines Psychiatric: Reports: Depression Endocrine/Metabolic: Reports: Diabetes, type II, Obesity/MBI 30+ Oncologic: Reports: Prostate, Renal - Tobacco Use Smoking Status *Q: Never Smoker - Caffeine Use Caffeine Use: Reports: Coffee - Recreational Drug Use Recreational Drug Use: No ED ROS GENERAL - Review of Systems Review Of Systems: ROS reveals no pertinent complaints other than HPI. ED EXAM, GENERAL - Physical Exam Exam: See Below (See dictation) Course - Vital Signs Last Recorded V/S: Last Vital Signs Temp 36.0 C 06/24/19 21:25 Pulse 99 06/24/19 21:25 Resp 22 H 06/24/19 21:25 BP 153/88 H 06/24/19 21:25 Pulse Ox 95 06/24/19 21:25 - Orders/Labs/Meds Orders: Active Orders 24 hr Category Date Time Status Communication Order [RC] STAT Care 06/24/19 22:05 Ordered Departure - Departure Time of Disposition: 22:08 Disposition: Home, Self-Care 01 Condition: Good Clinical Impression: Change or removal of wound dressing - Discharge Information Forms: ED Department Discharge Additional Instructions: The following information is given to patients seen in the emergency department who are being discharged to home. This information is to outline your options for follow-up care. We provide all patients seen in our emergency department with a follow-up referral. The need for follow-up, as well as the timing and circumstances, are variable depending upon the specifics of your emergency department visit. If you don't have a primary care physician on staff, we will provide you with a referral. We always advise you to contact your personal physician following an emergency department visit to inform them of the circumstance of the visit and for follow-up with them and/or the need for any referrals to a consulting specialist. The emergency department will also refer you to a specialist when appropriate. This referral assures that you have the opportunity for followup care with a specialist. All of these measure are taken in an effort to provide you with optimal care, which includes your followup. Under all circumstances we always encourage you to contact your private physician who remains a resource for coordinating your care. When calling for followup care, please make the office aware that this follow-up is from your recent emergency room visit. If for any reason you are refused follow-up, please contact the [facility] emergency department at and ask to speak to the emergency department charge nurse. [facility] Professional Building [address] [place] [id number] Do wet-to-dry dressings at least a daily but do more than that if they become saturated or if there is a lot of drainage to keep the area as clean as possible. Continue all home meds and follow-up care plan as you have in place. Return to ER as needed and as discussed - My Orders Last 24 Hours: My Active Orders 06/24/19 22:05 Communication Order [RC] STAT - Assessment/Plan Last 24 Hours: My Active Orders 06/24/19 22:05 Communication Order [RC] STAT
== END 2019-06-24 22:48 | disposition home or self-care (01) ==
LOC: MW.ED 19:44
DX: Z48.01 Encounter for change or removal of surgical wound dressing (principal); I10 Essential (primary) hypertension; E78.00 Pure hypercholesterolemia, unspecified; E11.9 Type 2 diabetes mellitus without complications; F32.9 Major depressive disorder, single episode, unspecified; F41.9 Anxiety disorder, unspecified; E66.9 Obesity, unspecified; Z68.42 Body mass index [BMI] 45.0-49.9, adult; Z79.82 Long term (current) use of aspirin; Z79.84 Long term (current) use of oral hypoglycemic drugs; Z79.899 Other long term (current) drug therapy; Z91.048 Other nonmedicinal substance allergy status
CPT/HCPCS: 99282

== ENCOUNTER 2020-08-19 13:36 | Inpatient (IN) | payer OTHER ==
[2020-08-19] MEDS ORDERED: Ondansetron 4 MG/2 ML SDV IVPUSH PRN (13:43)
[2020-08-19] MEDS ORDERED: Albuterol/Ipratropium 4 GM Inhalation Spray INH PRN (13:43)
[2020-08-19] MEDS ORDERED: Acetaminophen 325 MG Tab PO PRN (13:43)
[2020-08-19] MEDS ORDERED: Docusate Sodium 100 MG Cap PO PRN (13:43)
[2020-08-19] MEDS ORDERED: Enoxaparin 40 MG/0.4 ML Syringe SUBCUT SCH (13:45)
[2020-08-19] MEDS ORDERED: Glucagon,Human Recombinant 1 MG Vial IM PRN (13:46)
[2020-08-19] MEDS ORDERED: Sodium Chloride 0.9% 2.5 ML Syringe FLUSH PRN (13:46)
[2020-08-19] MEDS ORDERED: 50% Dextrose in Water 50 ML Syringe IV PRN (13:46)
--- NOTE | 2020-08-19 14:21 | PCM.HP.2 ---
H&P History of Present Illness - General Date of Service: 08/19/20 Admit Problem/Dx: Admission Diagnosis/Problem Admission Diagnosis/Problem Dyspnea Source of Information: Patient History Limitations: Reports: No Limitations - History of Present Illness Initial Comments - Free Text/Narative: This 45-year-old male with past medical history of hypertension, obesity, DM type II presented to the respiratory clinic for concerns of Covid related symptoms. He reports that he was initially diagnosed to at [facility] on August 12, 2020. He reports that he started with congestion which followed then by loss of smell and taste and has progressively worsened to muscle aches and pains along with dyspnea. He reports he is having a productive cough intermittently. Denies any chest pain but does report that he is dyspneic with activity and becomes very fatigued very quickly. He denies any diarrhea or constipation. Reports that he has been eating and drinking well at home. He has had some mild nausea but has not had no emesis. He reports that he likely was exposed at his family [employer] event. He reports that his mother and sister have both become positive in the same time. He has. 2 other individuals were at his medicine have been refusing diagnostic testing. He denies any recreational drug use no tobacco use and no alcohol use. 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 He reports at the outpatient clinic he was given an IM injection of steroids along with a Z-Michael. He has since initially Z-Michael and reports the steroid made him feel better for a couple days but then has slowly continued to worsen. In the respiratory clinic no leukocytosis noted hemoglobin 15.2 platelet count is 138. Sodium 132 potassium 4.1 chloride is 94 blood sugars 321 A1c is 10. Chest x-ray showed poor inhalation and consider right middle lobe consolidation. He was admitted directly to inpatient care from respiratory clinic. - Related Data Allergies/Adverse Reactions: Allergies Allergy/AdvReac Type Severity Reaction Status Date / Time house dust Allergy Other Verified 08/19/20 14:44 mold Allergy Shortness Verified 08/19/20 14:44 of Breath dust Allergy Shortness Uncoded 08/19/20 14:44 of Breath Home Medications: Home Meds Lisinopril 20 mg PO DAILY 07/25/15 [History] metFORMIN [Glucophage] 1,000 mg PO BIDMEALS 07/30/15 [History] glipiZIDE [Glipizide ER] 10 mg PO DAILY 10/20/15 [History] Aspirin [Adult Low Dose Aspirin EC] 81 mg PO DAILY 06/24/19 [History] PARoxetine HCl [Paxil] 20 mg PO DAILY 06/24/19 [History] Azithromycin [Zithromax] 250 mg PO DAILY 08/19/20 [History] atorvaSTATin [Lipitor] 10 mg PO BEDTIME 08/19/20 [History] Past Medical History HEENT History: Reports: Other (See Below) Other HEENT History: Wears eyeglasses Cardiovascular History: Reports: High Cholesterol, Hypertension Respiratory History: Reports: Asthma Other Respiratory History: seasonal asthma Gastrointestinal History: Reports: GERD Other Gastrointestinal History: occasional heartburn Genitourinary History: Reports: None Musculoskeletal History: Reports: Arthritis Other Musculoskeletal History: arthritis in rt knee Neurological History: Reports: None Psychiatric History: Reports: Anxiety, Depression Endocrine/Metabolic History: Reports: Diabetes, Type II, Obesity/BMI 30+ Hematologic History: Reports: None Immunologic History: Reports: None Oncologic (Cancer) History: Reports: None Dermatologic History: Reports: None - Infectious Disease History Infectious Disease History: Reports: Chicken Pox, Influenza - Past Surgical History GI Surgical History: Reports: Hernia, Abdominal, Hernia, Inguinal, Hernia Repair/Other Social & Family History - Family History Family Medical History: No Pertinent Family History HEENT: Reports: Cataract Cardiac: Reports: Heart Failure, Pacemaker Respiratory: Reports: Asthma, Other (See Below) Other Respiratory Family Hisory: Pneumonia GI: Reports: Diverticulitis : Reports: Renal Calculus Musculoskeletal: Reports: Arthritis Neurological: Reports: Migraines Psychiatric: Reports: Depression Endocrine/Metabolic: Reports: Diabetes, type II, Obesity/MBI 30+ Oncologic: Reports: Prostate, Renal - Tobacco Use Tobacco Use Status *Q: Never Tobacco User Second Hand Smoke Exposure: No - Caffeine Use Caffeine Use: Reports: Coffee - Recreational Drug Use Recreational Drug Use: No - Living Situation & Occupation Living situation: Reports: Single Occupation: Employed H&P Review of Systems - Review of Systems: Review Of Systems: See Below General: Reports: Malaise, Weakness, Fatigue. Denies: Fever, Chills HEENT: Reports: Sinus Congestion, Other (Loss of smell and taste) Pulmonary: Reports: Shortness of Breath, Cough, Sputum (Yellow). Denies: Pleuritic Chest Pain Cardiovascular: Reports: Dyspnea on Exertion. Denies: Chest Pain, Palpitations, Edema Gastrointestinal: Reports: Nausea. Denies: Abdominal Pain, Black Stool, Bloody Stool, Vomiting Genitourinary: Reports: No Symptoms. Denies: Dysuria, Frequency Musculoskeletal: Reports: Other (Generalized muscle aches and pains) Skin: Reports: No Symptoms Psychiatric: Reports: No Symptoms Neurological: Reports: Other (Reports foggy thoughts) Hematologic/Lymphatic: Reports: No Symptoms Immunologic: Reports: No Symptoms Exam - Exam Exam: See Below - Vital Signs Vital Signs: Last Vital Signs Temp 97.9 F 08/19/20 13:40 Pulse 112 H 08/19/20 13:40 Resp 18 08/19/20 13:40 BP 132/86 08/19/20 13:40 Pulse Ox 94 L 08/19/20 13:40 Weight: 137.393 kg - Exam Quality Assessment: DVT Prophylaxis. No: Supplemental Oxygen (Currently satting 94% on room air) General: Alert, Oriented, Cooperative HEENT: Conjunctiva Clear, Mucosa Moist & Brice, Posterior Pharynx Clear Neck: Supple, Trachea Midline Lungs: Decreased Breath Sounds (Bibasilar). No: Normal Respiratory Effort (Dyspnea) Cardiovascular: Regular Rate, Regular Rhythm. No: Normal S1, Normal S2 GI/Abdominal Exam: Normal Bowel Sounds, Soft, Non-Tender, Other (Obese abdomen limits exam) Extremities: Normal Inspection, Normal Range of Motion, Non-Tender, No Pedal Ed consuelo Neuro Extensive - Mental Status: Alert, Oriented x3 Neuro Extensive - Motor, Sensory, Reflexes: CN II-XII Intact Psychiatric: Anxious (Was calmed with counseling of treatment plan) Sepsis Event Note - Evaluation Sepsis Screening Result: No Definite Risk - Focused Exam Vital Signs: Vital Signs Temp Pulse Resp BP Pulse Ox 08/19/20 13:40 97.9 F 112 H 18 132/86 94 L - Problem List (1) COVID-19 SNOMED Code(s): 892190943 ICD Code: U07.1 - COVID-19 Status: Acute Current Visit: Yes (2) Obesity SNOMED Code(s): 704877038, 465391683 ICD Code: E66.9 - OBESITY, UNSPECIFIED Status: Chronic Current Visit: Yes (3) Diabetes mellitus SNOMED Code(s): 48701022 ICD Code: E11.9 - TYPE 2 DIABETES MELLITUS WITHOUT COMPLICATIONS Status: Chronic Current Visit: No Qualifiers: Diabetes mellitus type: type 2 Diabetes mellitus complication status: without complication Qualified Code(s): E11.9 - Type 2 diabetes mellitus without complications (4) Hypertension SNOMED Code(s): 57844564 ICD Code: I10 - ESSENTIAL (PRIMARY) HYPERTENSION Status: Acute Current Visit: Yes (5) Asthma SNOMED Code(s): 530535820 ICD Code: J45.909 - UNSPECIFIED ASTHMA, UNCOMPLICATED Status: Acute Current Visit: Yes Qualifiers: Asthma severity: mild Asthma persistence: intermittent Asthma complication type: with acute exacerbation Qualified Code(s): J45.21 - Mild intermittent asthma with (acute) exacerbation Problem List Initiated/Reviewed/Updated: Yes Orders Last 24hrs: Active Orders 24 hr Category Date Time Status Patient Status [ADT] Routine ADT 08/19/20 13:43 Active Blood Glucose Check, Bedside [RC] TIDMEALS Care 08/19/20 13:43 Active Intake and Output [RC] Q12H Care 08/19/20 13:43 Active Oxygen Therapy [RC] PRN Care 08/19/20 13:43 Active RT Incentive Spirometry [RC] Q1HWA Care 08/19/20 13:43 Active RT Post Treatment Assessment [RC] Click to Edit Care 08/19/20 13:45 Active RT Pre-Treatment Assessment [RC] Click to Edit Care 08/19/20 13:45 Active Up With Assistance [RC] ASDIRECTED Care 08/19/20 13:43 Active VTE/DVT Education [RC] PER UNIT ROUTINE Care 08/19/20 13:43 Active Vital Signs [RC] Q4H Care 08/19/20 13:43 Active Respiratory Care Assess and Treatment [CONS] Routine Cons 08/19/20 13:43 Active [employer] Diet [DIET] Diet 08/19/20 Lunch Active Ang Chest [CT] Urgent Exams 08/19/20 14:09 Ordered CBC WITH AUTO DIFF [HEME] AM Lab 08/20/20 05:11 Ordered CBC WITH AUTO DIFF [HEME] AM Lab 08/21/20 05:11 Ordered CBC WITH AUTO DIFF [HEME] AM Lab 08/22/20 05:11 Ordered CBC WITH AUTO DIFF [HEME] AM Lab 08/23/20 05:11 Ordered CBC WITH AUTO DIFF [HEME] AM Lab 08/24/20 05:11 Ordered COMPREHENSIVE METABOLIC PN,CMP [CHEM] AM Lab 08/20/20 05:11 Ordered COMPREHENSIVE METABOLIC PN,CMP [CHEM] AM Lab 08/21/20 05:11 Ordered COMPREHENSIVE METABOLIC PN,CMP [CHEM] AM Lab 08/22/20 05:11 Ordered COMPREHENSIVE METABOLIC PN,CMP [CHEM] AM Lab 08/23/20 05:11 Ordered COMPREHENSIVE METABOLIC PN,CMP [CHEM] AM Lab 08/24/20 05:11 Ordered MAGNESIUM [CHEM] AM Lab 08/20/20 05:11 Ordered MAGNESIUM [CHEM] AM Lab 08/21/20 05:11 Ordered MAGNESIUM [CHEM] AM Lab 08/22/20 05:11 Ordered MAGNESIUM [CHEM] AM Lab 08/23/20 05:11 Ordered MAGNESIUM [CHEM] AM Lab 08/24/20 05:11 Ordered Acetaminophen [TylenoL] Med 08/19/20 13:43 Active 650 mg PO Q4H PRN Albuterol/Ipratropium [Combivent Respimat] Med 08/19/20 13:43 Active See Dose Instructions INH Q4H PRN Dextrose 50% in Water Med 08/19/20 13:46 Active 50 ml IV ASDIRECTED PRN Docusate Sodium [Colace] Med 08/19/20 13:43 Active 100 mg PO BID PRN Enoxaparin [Lovenox] Med 08/19/20 13:45 Active 40 mg SUBCUT Q24H Glucagon,Human Recombinant [GlucaGen] Med 08/19/20 13:46 Active 1 mg IM ASDIRECTED PRN Insulin Aspart [NovoLOG] Med 08/19/20 17:00 Active See Protocol SUBCUT TIDAC Ondansetron [Zofran] Med 08/19/20 13:43 Active 4 mg IVPUSH Q4H PRN Sodium Chloride 0.9% [Saline Flush] Med 08/19/20 13:46 Active 2.5 ml FLUSH ASDIRECTED PRN Saline Lock Insert [OM.PC] Routine Oth 08/19/20 13:46 Ordered Resuscitation Status Routine Resus Stat 08/19/20 13:43 Ordered Medication Orders Acetaminophen (Tylenol) 650 mg PO Q4H PRN PRN Reason: Pain (Mild 1-3)/fever Albuterol/Ipratropium (Combivent Respimat) 0 gm INH Q4H PRN PRN Reason: Dyspnea Dextrose/Water (Dextrose 50% In Water) 50 ml IV ASDIRECTED PRN PRN Reason: Hypoglycemia Docusate Sodium (Colace) 100 mg PO BID PRN PRN Reason: Constipation Enoxaparin Sodium (Lovenox) 40 mg SUBCUT Q24H JEANIE Glucagon (Glucagen) 1 mg IM ASDIRECTED PRN PRN Reason: Hypoglycemia Insulin Aspart (Novolog) 0 unit SUBCUT TIDAC JEANIE; Protocol Ondansetron HCl (Zofran) 4 mg IVPUSH Q4H PRN PRN Reason: Nausea Sodium Chloride (Saline Flush) 2.5 ml FLUSH ASDIRECTED PRN PRN Reason: Keep Vein Open Assessment/Plan Comment:: This 45-year-old male admitted with COVID-19 1. COVID-19: -Has dyspnea with exertion and generalized weakness -We will obtain CTA of chest to rule out PE does have bilateral leg pain if CT negative consider Doppler of extremities -Currently not hypoxic will check oxygen saturations on ambulation. -If hypoxia develops consider remdesivir -He is day 7 or so of infection course so currently does not qualify for convalescent plasma -Encouraged I-S use along with proning as much as possible. He was counseled on proning and physiology of this, he verbalized understanding -Combivent inhaler as needed -We will add dexamethasone 6 mg p.o. daily for possible mild asthma exacerbation. Has had intermittent wheezing throughout lung casarez 2. DM type II -Hold oral diabetic medications -NovoLog sliding to with meals -A1c is elevated at 10 will start Lantus 5 units at bedtime monitor blood sugars 3. HTN -Continue lisinopril and aspirin VTE prophylaxis: Lovenox GI prophylaxis: Protonix CODE STATUS: Full code Dispo 2 to 3 days pending improvement - Mortality Measure Prognosis:: Good
[2020-08-19] MEDS: Dexamethasone 4 MG Tab PO SCH (15:14)
--- NOTE | 2020-08-19 17:55 | PCM.SN.2 ---
- Free Text/Narrative Note: Requested for IV on patient with extensive medical history as well as COVID. Numerous attempts prior. 18 guage L wrist. Flushes well, no aspirate. 30ml saline flush thru, site looks normal. 16:45-17:45.
[2020-08-19] MEDS ORDERED: Iopamidol 755 MG/ML 500 ML Multipack Bottle IVPUSH STA (18:19)
[2020-08-19] MEDS: Insulin Aspart 100 Units/ML 3 ML Pen SUBCUT SCH (18:54)
--- NOTE | 2020-08-19 18:57 | CT ---
INDICATION: Dyspnea TECHNIQUE: CT chest pulmonary angiogram acquired with IV contrast. 100 cc Isovue 370 COMPARISON: None FINDINGS: Cardiovascular structures: Normal vascular enhancement of the pulmonary arteries, no sign of pulmonary embolism. Heart size is normal. No sign of aneurysm or dissection in the thoracic aorta. Mediastinum and shane: No mass or adenopathy. Lungs: Bilateral areas of ground-glass appearance and consolidations consistent with pneumonia. COVID pneumonia suspected. Pleura and pericardium: No effusions. Chest wall and axilla: No mass or adenopathy. Bones: No significant findings. Upper abdomen: Hepatic steatosis. IMPRESSION: No evidence for pulmonary embolus. Bilateral areas of ground-glass appearance 6 consolidations consistent with pneumonia. COVID 1 suspected. Hepatic steatosis. Please note that all CT scans at this facility use dose modulation, iterative reconstruction, and/or weight-based dosing when appropriate to reduce radiation dose to as low as reasonably achievable. Dictated by Edilberto Cervantes MD @ Aug 19 2020 6:46PM Signed by Dr. Edilberto Cervantes @ Aug 19 2020 6:56PM
[2020-08-19] MEDS ORDERED: Insulin Glargine,Human Rec. Analog 100 Units/ML 3 ML Pen SUBCUT SCH (21:00)
[2020-08-20 06:34] LABS: BLOOD UREA NITROGEN,BUN 18 mg/dL (7.0-18.0); CARBON DIOXIDE,CO2 20.4 mmol/L (21.0-32.0); CHLORIDE,CL 96 mmol/L (98-107); GLUCOSE RANDOM 330 mg/dL (74-106); POTASSIUM,K 4.1 mmol/L (3.5-5.1); SODIUM,NA 134 mmol/L (136-148)
[2020-08-20] MEDS ORDERED: REMDESIVIR 200 MG in Sodium Chloride 0.9% 250 ML IV ONE (08:06)
--- NOTE | 2020-08-20 08:08 | PCM.PN ---
- General Info Date of Service: 08/20/20 Admission Dx/Problem (Free Text): Admission Diagnosis/Problem Admission Diagnosis/Problem Dyspnea, COVID 19 pneumonia Subjective Update: Continues to feel short of breath with exertion and speaking. NO chest pain, no palpitations. Reports bilateral lower leg pains. Reports intermittent productive cough, yellow sputum. No other concerns. Functional Status: Reports: Pain Controlled, Tolerating Diet, Ambulating, Urinating - Review of Systems General: Reports: Weakness, Fatigue, Malaise. Denies: Fever HEENT: Reports: Other (no smell or taste) Pulmonary: Reports: Shortness of Breath, Cough, Sputum, Wheezing. Denies: Hemoptysis Cardiovascular: Denies: Chest Pain, Palpitations Gastrointestinal: Reports: No Symptoms. Denies: Abdominal Pain, Nausea, Vomiting Genitourinary: Reports: No Symptoms. Denies: Dysuria, Frequency Musculoskeletal: Reports: Other (calf pain bilaterally) Skin: Reports: No Symptoms Neurological: Reports: No Symptoms Psychiatric: Reports: No Symptoms - Patient Data Vitals - Most Recent: Last Vital Signs Temp 96.8 F L 08/20/20 03:47 Pulse 91 08/20/20 03:47 Resp 18 08/20/20 03:47 BP 125/86 08/20/20 03:47 Pulse Ox 91 L 08/20/20 03:47 Weight - Most Recent: 137.393 kg I&O - Last 24 Hours: Intake & Output 08/19/20 08/20/20 08/20/20 22:59 06:59 14:59 Intake Total 700 1520 Output Total 600 3350 Balance 100 -1830 Lab Results Last 24 Hours: Laboratory Results - last 24 hr 08/19/20 08/20/20 08/20/20 Range/Units 18:42 05:57 05:57 WBC 3.73 L (4.0-11.0) K/uL RBC 4.81 (4.50-5.90) M/uL Hgb 14.3 (13.0-17.0) g/dL Hct 43.3 (38.0-50.0) % MCV 90.0 (80.0-98.0) fL MCH 29.7 (27.0-32.0) pg MCHC 33.0 (31.0-37.0) g/dL RDW Std Deviation 43.2 (28.0-62.0) fl RDW Coeff of Aislinn 13 (11.0-15.0) % Plt Count 160 (150-400) K/uL MPV 9.30 (7.40-12.00) fL Neut % (Auto) 60.5 (48.0-80.0) % Lymph % (Auto) 28.2 (16.0-40.0) % [place] % (Auto) 11.0 (0.0-15.0) % Eos % (Auto) 0.0 (0.0-7.0) % Baso % (Auto) 0.3 (0.0-1.5) % Neut # (Auto) 2.3 (1.4-5.7) K/uL Lymph # (Auto) 1.1 (0.6-2.4) K/uL [place] # (Auto) 0.4 (0.0-0.8) K/uL Eos # (Auto) 0.0 (0.0-0.7) K/uL Baso # (Auto) 0.0 (0.0-0.1) K/uL Nucleated RBC % 0.0 /100WBC Nucleated RBCs # 0 K/uL Sodium 134 L (136-148) mmol/L Potassium 4.1 (3.5-5.1) mmol/L Chloride 96 L (98-107) mmol/L Carbon Dioxide 20.4 L (21.0-32.0) mmol/L BUN 18 (7.0-18.0) mg/dL Creatinine 0.7 L (0.8-1.3) mg/dL Est Cr Clr Drug Dosing 131.86 mL/min Estimated GFR (MDRD) > 60.0 ml/min Glucose 330 H (74-106) mg/dL POC Glucose 344 H (60-110) mg/dL Calcium 8.8 (8.5-10.1) mg/dL Magnesium 2.2 (1.8-2.4) mg/dL Total Bilirubin 0.4 (0.2-1.0) mg/dL AST 18 (15-37) IU/L ALT 40 (14-63) IU/L Alkaline Phosphatase 67 (46-116) U/L Total Protein 7.6 (6.4-8.2) g/dL Albumin 3.1 L (3.4-5.0) g/dL Globulin 4.5 H (2.6-4.0) g/dL Albumin/Globulin Ratio 0.7 L (0.9-1.6) 08/20/20 Range/Units 06:22 WBC (4.0-11.0) K/uL RBC (4.50-5.90) M/uL Hgb (13.0-17.0) g/dL Hct (38.0-50.0) % MCV (80.0-98.0) fL MCH (27.0-32.0) pg MCHC (31.0-37.0) g/dL RDW Std Deviation (28.0-62.0) fl RDW Coeff of Aislinn (11.0-15.0) % Plt Count (150-400) K/uL MPV (7.40-12.00) fL Neut % (Auto) (48.0-80.0) % Lymph % (Auto) (16.0-40.0) % [place] % (Auto) (0.0-15.0) % Eos % (Auto) (0.0-7.0) % Baso % (Auto) (0.0-1.5) % Neut # (Auto) (1.4-5.7) K/uL Lymph # (Auto) (0.6-2.4) K/uL [place] # (Auto) (0.0-0.8) K/uL Eos # (Auto) (0.0-0.7) K/uL Baso # (Auto) (0.0-0.1) K/uL Nucleated RBC % /100WBC Nucleated RBCs # K/uL Sodium (136-148) mmol/L Potassium (3.5-5.1) mmol/L Chloride (98-107) mmol/L Carbon Dioxide (21.0-32.0) mmol/L BUN (7.0-18.0) mg/dL Creatinine (0.8-1.3) mg/dL Est Cr Clr Drug Dosing mL/min Estimated GFR (MDRD) ml/min Glucose (74-106) mg/dL POC Glucose 304 H (60-110) mg/dL Calcium (8.5-10.1) mg/dL Magnesium (1.8-2.4) mg/dL Total Bilirubin (0.2-1.0) mg/dL AST (15-37) IU/L ALT (14-63) IU/L Alkaline Phosphatase (46-116) U/L Total Protein (6.4-8.2) g/dL Albumin (3.4-5.0) g/dL Globulin (2.6-4.0) g/dL Albumin/Globulin Ratio (0.9-1.6) Med Orders - Current: Current Medications Acetaminophen (Tylenol) 650 mg PO Q4H PRN PRN Reason: Pain (Mild 1-3)/fever Albuterol/Ipratropium (Combivent Respimat) 0 gm INH Q4H PRN PRN Reason: Dyspnea Dexamethasone (Dexamethasone) 6 mg PO DAILY [facility] Last Admin: 08/19/20 15:14 Dose: 6 mg Documented by: Dextrose/Water (Dextrose 50% In Water) 50 ml IV ASDIRECTED PRN PRN Reason: Hypoglycemia Docusate Sodium (Colace) 100 mg PO BID PRN PRN Reason: Constipation Enoxaparin Sodium (Lovenox) 40 mg SUBCUT Q24H [facility] Last Admin: 08/19/20 14:43 Dose: 40 mg Documented by: Glucagon (Glucagen) 1 mg IM ASDIRECTED PRN PRN Reason: Hypoglycemia Remdesivir 100 mg/ Sodium (Chloride) 100 mls @ 100 mls/hr IV Q24H JEANIE Stop: 08/24/20 09:14 Remdesivir 200 mg/ Sodium (Chloride) 250 mls @ 250 mls/hr IV ONETIME ONE Stop: 08/20/20 08:07 Insulin Aspart (Novolog) 0 unit SUBCUT TIDAC [facility]; Protocol Last Admin: 08/19/20 18:54 Dose: 4 units Documented by: Insulin Glargine (Lantus Solostar) 5 units SUBCUT BEDTIME [facility] Last Admin: 08/19/20 20:13 Dose: 5 units Documented by: Ondansetron HCl (Zofran) 4 mg IVPUSH Q4H PRN PRN Reason: Nausea Sodium Chloride (Saline Flush) 2.5 ml FLUSH ASDIRECTED PRN PRN Reason: Keep Vein Open Discontinued Medications Iopamidol (Isovue Multipack-370 (76%)) 100 ml IVPUSH ONETIME STA Stop: 08/19/20 18:20 Last Admin: 08/19/20 18:22 Dose: 100 ml Documented by: - Exam Quality Assessment: DVT Prophylaxis. No: Supplemental Oxygen General: Alert, Oriented, Cooperative, No Acute Distress Neck: Supple Lungs: Decreased Breath Sounds, Crackles (R base). No: Normal Respiratory Effort (dyspnea with speech and exertion) Cardiovascular: Regular Rate, Regular Rhythm GI/Abdominal Exam: Normal Bowel Sounds, Soft, Non-Tender Back Exam: Normal Inspection, Full Range of Motion Extremities: Normal Inspection, Normal Range of Motion, No Pedal Edema, Leg Pain (bilateral calf, no sweling) Neurological: No New Focal Deficit Psy/Mental Status: Alert, Normal Affect, Normal Mood Sepsis Event Note - Evaluation Sepsis Screening Result: No Definite Risk - Focused Exam Vital Signs: Vital Signs Temp Pulse Resp BP Pulse Ox 08/20/20 03:47 96.8 F L 91 18 125/86 91 L 08/20/20 00:00 96.9 F 93 18 134/82 93 L 08/19/20 20:19 97.7 F 99 18 134/78 92 L - Problem List & Annotations (1) COVID-19 SNOMED Code(s): 363273831 Code(s): U07.1 - COVID-19 Status: Acute Current Visit: Yes (2) Obesity SNOMED Code(s): 435762750, 369488244 Code(s): E66.9 - OBESITY, UNSPECIFIED Status: Chronic Current Visit: Yes (3) Diabetes mellitus SNOMED Code(s): 18834060 Code(s): E11.9 - TYPE 2 DIABETES MELLITUS WITHOUT COMPLICATIONS Status: Chronic Current Visit: No Qualifiers: Diabetes mellitus type: type 2 Diabetes mellitus complication status: without complication Qualified Code(s): E11.9 - Type 2 diabetes mellitus with out complications (4) Hypertension SNOMED Code(s): 34739518 Code(s): I10 - ESSENTIAL (PRIMARY) HYPERTENSION Status: Acute Current Visit: Yes (5) Asthma SNOMED Code(s): 393735711 Code(s): J45.909 - UNSPECIFIED ASTHMA, UNCOMPLICATED Status: Acute Current Visit: Yes Qualifiers: Asthma severity: mild Asthma persistence: intermittent Asthma complication type: with acute exacerbation Qualified Code(s): J45.21 - Mild intermittent asthma with (acute) exacerbation - Problem List Review Problem List Initiated/Reviewed/Updated: Yes - My Orders Last 24 Hours: My Active Orders 08/19/20 Lunch [employer] Diet [DIET] 08/19/20 13:43 Patient Status [ADT] Routine Blood Glucose Check, Bedside [RC] TIDMEALS Intake and Output [RC] Q12H Oxygen Therapy [RC] PRN RT Incentive Spirometry [RC] Q1HWA Up With Assistance [RC] ASDIRECTED VTE/DVT Education [RC] PER UNIT ROUTINE Vital Signs [RC] Q4H Respiratory Care Assess and Treatment [CONS] Routine Acetaminophen [TylenoL] 650 mg PO Q4H PRN Albuterol/Ipratropium [Combivent Respimat] See Dose Instructions INH Q4H PRN Docusate Sodium [Colace] 100 mg PO BID PRN Ondansetron [Zofran] 4 mg IVPUSH Q4H PRN Resuscitation Status Routine 08/19/20 13:45 RT Post Treatment Assessment [RC] Click to Edit RT Pre-Treatment Assessment [RC] Click to Edit Enoxaparin [Lovenox] 40 mg SUBCUT Q24H 08/19/20 13:46 Dextrose 50% in Water 50 ml IV ASDIRECTED PRN Glucagon,Human Recombinant [GlucaGen] 1 mg IM ASDIRECTED PRN Sodium Chloride 0.9% [Saline Flush] 2.5 ml FLUSH ASDIRECTED PRN Saline Lock Insert [OM.PC] Routine 08/19/20 14:45 dexAMETHasone 6 mg PO DAILY 08/19/20 17:00 Insulin Aspart [NovoLOG] See Protocol SUBCUT TIDAC 08/19/20 21:00 Insulin Glarg,Human.Rec.Analog [LantUS Solostar] 5 units SUBCUT BEDTIME 08/20/20 08:06 Remdesivir 200 mg Sodium Chloride 0.9% [Normal Saline] 250 ml IV ONETIME 08/21/20 05:11 CBC WITH AUTO DIFF [HEME] AM COMPREHENSIVE METABOLIC PN,CMP [CHEM] AM MAGNESIUM [CHEM] AM 08/21/20 08:15 Remdesivir 100 mg Sodium Chloride 0.9% [Normal Saline] 100 ml IV Q24H 08/22/20 05:11 CBC WITH AUTO DIFF [HEME] AM COMPREHENSIVE METABOLIC PN,CMP [CHEM] AM MAGNESIUM [CHEM] AM 08/23/20 05:11 CBC WITH AUTO DIFF [HEME] AM COMPREHENSIVE METABOLIC PN,CMP [CHEM] AM MAGNESIUM [CHEM] AM 08/24/20 05:11 CBC WITH AUTO DIFF [HEME] AM COMPREHENSIVE METABOLIC PN,CMP [CHEM] AM MAGNESIUM [CHEM] AM - Plan Plan:: This 45-year-old male admitted with COVID-19 1. COVID-19: - Continues to feel weak with dyspnea. -CTA chest negative for PE, reveals COVID pneumonia -Mild hypoxia noted overnight 90% on RA, with mild worsening SOB - Add Remdesivir 200 mg now then 100 mg daily x 4 days -He is day 7 or so of infection course so currently does not qualify for convalescent plasma -Encouraged I-S use along with proning as much as possible. He was counseled on proning and physiology of this, he verbalized understanding -Combivent inhaler as needed -Continue dexamethasone 6 mg p.o. daily - Obtain doppler bilateral legs, rule out DVT due to pain - Add Levaquin 750 mg IV daily 2. DM type II -Hold oral diabetic medications -NovoLog sliding to with meals - Lantus 8 units at bedtime monitor blood sugars - Dm educator for insulin administration at home 3. HTN -Continue lisinopril and aspirin VTE prophylaxis: Lovenox BID GI prophylaxis: Protonix CODE STATUS: Full code Dispo 2 to 3 days pending improvement
[2020-08-20] MEDS: Dexamethasone 4 MG Tab PO SCH (08:15)
[2020-08-20] MEDS: Insulin Aspart 100 Units/ML 3 ML Pen SUBCUT SCH ×4 (08:17→17:08)
[2020-08-20] MEDS: Aspirin 81 MG Tab.EC PO SCH (10:24)
[2020-08-20] MEDS: Lisinopril 10 MG Tab PO SCH (10:25)
[2020-08-20] MEDS: PARoxetine 20 MG Tab PO SCH (10:26)
[2020-08-20] MEDS: Enoxaparin 40 MG/0.4 ML Syringe SUBCUT SCH ×2 (10:27→20:40)
[2020-08-20] MEDS: Levofloxacin/Dextrose 5%-Water 750 MG in Premix Bag 1 BAG IV SCH (11:51)
--- NOTE | 2020-08-20 12:06 | US ---
INDICATION: History of COVID-19 infection; pain and swelling both lower extremities TECHNIQUE: A compression venous ultrasound exam was performed of both lower extremities using kraus scale imaging, color Doppler and spectral Doppler analysis. FINDINGS: Sonographic imaging of the lower extremities demonstrates normal compressibility and color Doppler venous blood flow within the common femoral, deep femoral, and proximal greater saphenous veins. Within the thighs the femoral veins are patent and compressible. At a lower level the popliteal and posterior tibial veins also show normal compressibility and color Doppler venous blood flow. IMPRESSION: Normal venous ultrasound exam. No evidence of deep vein thrombosis within either the left or right lower extremity. Dictated by Louisa Lopez MD @ Aug 20 2020 12:04PM Signed by Dr. Louisa Lopez @ Aug 20 2020 12:05PM
[2020-08-20] MEDS ORDERED: atorvaSTATin 10 MG Tab PO SCH (21:00)
[2020-08-20] MEDS ORDERED: Insulin Glargine,Human Rec. Analog 100 Units/ML 3 ML Pen SUBCUT SCH (21:00)
[2020-08-21 06:46] LABS: BLOOD UREA NITROGEN,BUN 19 mg/dL (7.0-18.0); CHLORIDE,CL 98 mmol/L (98-107); GLUCOSE RANDOM 351 mg/dL (74-106); POTASSIUM,K 4.1 mmol/L (3.5-5.1); SODIUM,NA 134 mmol/L (136-148)
[2020-08-21] MEDS ORDERED: Pantoprazole 40 MG Tab.CR PO SCH (07:30)
[2020-08-21] MEDS: Insulin Aspart 100 Units/ML 3 ML Pen SUBCUT SCH ×4 (07:50→11:47)
[2020-08-21] MEDS: Dexamethasone 4 MG Tab PO SCH (08:00)
[2020-08-21] MEDS: Aspirin 81 MG Tab.EC PO SCH (08:01)
[2020-08-21] MEDS: Lisinopril 10 MG Tab PO SCH (08:01)
[2020-08-21] MEDS: PARoxetine 20 MG Tab PO SCH (08:01)
[2020-08-21] MEDS ORDERED: REMDESIVIR 100 MG in Sodium Chloride 0.9% 100 ML IV SCH (08:15)
[2020-08-21] MEDS: Levofloxacin/Dextrose 5%-Water 750 MG in Premix Bag 1 BAG IV SCH (11:03)
[2020-08-21] MEDS: Enoxaparin 40 MG/0.4 ML Syringe SUBCUT SCH ×3 (11:08→11:10)
[2020-08-21 11:45] VITALS: BP 134/81; PULSE 95
--- NOTE | 2020-08-21 13:56 | PCM.DCSUM1 ---
Discharge Summary - Hospital Course Brief History: This 45-year-old male with past medical history of hypertension, obesity, DM type II presented to the respiratory clinic for concerns of Covid related symptoms. He reports that he was initially diagnosed to at [facility] on August 12, 2020. He reports that he started with congestion which followed then by loss of smell and taste and has progressively worsened to muscle aches and pains along with dyspnea. He reports he is having a productive cough intermittently. Denies any chest pain but does report that he is dyspneic with activity and becomes very fatigued very quickly. He denies any diarrhea or constipation. Reports that he has been eating and drinking well at home. He has had some mild nausea but has not had no emesis. He reports that he likely was exposed at his family [employer] event. He reports that his mother and sister have both become positive in the same time. He has. 2 other individuals were at his medicine have been refusing diagnostic testing. He denies any recreational drug use no tobacco use and no alcohol use. 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 He reports at the outpatient clinic he was given an IM injection of steroids along with a Z-Michael. He has since initially Z-Michael and reports the steroid made him feel better for a couple days but then has slowly continued to worsen. In the respiratory clinic no leukocytosis noted hemoglobin 15.2 platelet count is 138. Sodium 132 potassium 4.1 chloride is 94 blood sugars 321 A1c is 10. Chest x-ray showed poor inhalation and consider right middle lobe consolidation. He was admitted directly to inpatient care from respiratory clinic. - Discharge Data Discharge Date: 08/21/20 Discharge Disposition: Home, Self-Care 01 Condition: Good - Referral to Home Health Primary Care Physician: PCP None - Discharge Diagnosis/Problem(s) (1) COVID-19 SNOMED Code(s): 920861072 ICD Code: U07.1 - COVID-19 Status: Acute (2) Obesity SNOMED Code(s): 070078903, 485209696 ICD Code: E66.9 - OBESITY, UNSPECIFIED Status: Chronic (3) Diabetes mellitus SNOMED Code(s): 09102786 ICD Code: E11.9 - TYPE 2 DIABETES MELLITUS WITHOUT COMPLICATIONS Status: Chronic Qualifiers: Diabetes mellitus type: type 2 Diabetes mellitus complication status: without complication Qualified Code(s): E11.9 - Type 2 diabetes mellitus without complications (4) Hypertension SNOMED Code(s): 68209467 ICD Code: I10 - ESSENTIAL (PRIMARY) HYPERTENSION Status: Acute (5) Asthma SNOMED Code(s): 536013774 ICD Code: J45.909 - UNSPECIFIED ASTHMA, UNCOMPLICATED Status: Acute Qualifiers: Asthma severity: mild Asthma persistence: intermittent Asthma complication type: with acute exacerbation Qualified Code(s): J45.21 - Mild intermittent asthma with (acute) exacerbation - Patient Summary/Data Consults: Consultations 08/19/20 13:43 Respiratory Care Assess and Treatment [CONS] Routine 08/21/20 09:35 Consult to Senior Quality Analyst [Consult to Diabetic Nurse Specialist] [CONS] [facility] Course: Admission diagnoses: COVID-19 Possible CAP Discharge diagnoses; Possible CAP COVID-19 Other PMH; Diabetes type 2, uncontrolled HTN Obesity Lucie was admitted secondary to weakness from COVID-19 along with possible CAP. He was reported to have shortness of breath but no hypoxia. He did have mild wheezing and possible asthma exacerbation on admission. He was started on dexamethasone at this point. CT angio of the chest was obtained which ruled out PE but did show bilateral groundglass opacities with possible consolidation. He was started on Levaquin for possible CAP on second day of admission he was noted to have mild hypoxia sats 90% on room air. He was started on remdesivir as there was concern he may decline into respiratory failure. He has done well since he has maintained oxygen saturations mid to upper 90s with activity and as well as at rest. Today he is feeling much improved. He will be discharged home with Levaquin 750 mg daily for 5 more days for CAP. During his stay he was noted to be hyperglycemic on admission with A1c of 10. He was counseled on improving diet and continuing to take Metformin along with glipizide. He will be discharged home with Lantus 10 units at bedtime he is to monitor blood sugars closely and follow-up with PCP as well as nurse educator. He was counseled that due to need of admission and possible severity of illness per CV guidelines he should be quarantined for 20 days. Today was day 10 of illness so he is needing to quarantine for another 10 days. He was given work note regarding this he is to follow-up with PCP in 7 to 10 days. He was counseled on returning to the ER if shortness of breath fevers chills or overall not doing better for evaluation. All questions and answers addressed. He will be discharged home today. - Patient Instructions Diet: Diabetic Diet Activity: Rest and Relax Today Showering/Bathing: May Shower Notify Provider of: Fever, Increased Pain, Swelling and Redness, Drainage, Nausea and/or Vomiting Other/Special Instructions: Need to quarntine for total of 20 days due to hospitalization, following CDC recommendations. 09/01/20 last day of quarantine - Discharge Plan *PRESCRIPTION DRUG MONITORING PROGRAM REVIEWED*: Not Applicable *COPY OF PRESCRIPTION DRUG MONITORING REPORT IN PATIENT QASIM: Not Applicable Prescriptions/Med Rec: Insulin Glargine,Hum.Rec.Anlog [Lantus Solostar] 10 unit SQ BEDTIME #1 box levoFLOXacin [Levaquin] 750 mg PO DAILY #5 tab Home Medications: Home Meds Lisinopril 20 mg PO DAILY 07/25/15 [History] metFORMIN [Glucophage] 1,000 mg PO BIDMEALS 07/30/15 [History] glipiZIDE [Glipizide ER] 10 mg PO DAILY 10/20/15 [History] Aspirin [Adult Low Dose Aspirin EC] 81 mg PO DAILY 06/24/19 [History] PARoxetine HCl [Paxil] 20 mg PO DAILY 06/24/19 [History] atorvaSTATin [Lipitor] 10 mg PO BEDTIME 08/19/20 [History] Acetaminophen [Tylenol] 650 mg PO Q4H PRN tablet 08/21/20 [Rx] Albuterol/Ipratropium [Combivent Respimat] 1 puff INH Q4H PRN #1 inhaler 08/21/20 [Rx] Insulin Glargine,Hum.Rec.Anlog [Lantus Solostar] 10 unit SQ BEDTIME #1 box 08/21/20 [Rx] levoFLOXacin [Levaquin] 750 mg PO DAILY #5 tab 08/21/20 [Rx] Oxygen Therapy Mode: Room Air Patient Handouts: COVID-19 Frequently Asked Questions, COVID-19, Insulin Injection Instructions, Using Insulin Pens, Adult, COVID-19: How to Protect Yourself and Others - CDC, Levofloxacin tablets, Coronavirus Information 10/30/19, Insulin Glargine injection, Prevent the Spread of COVID-19 if You Are Sick - [facility] Referrals: Catarina Brandt MD [Physician] - 09/13/20 8:30 am - Discharge Summary/Plan Comment DC Time >30 min.: No - Patient Data Vitals - Most Recent: Last Vital Signs Temp 97.6 F 08/21/20 11:30 Pulse 95 08/21/20 11:30 Resp 19 08/21/20 11:30 BP 134/81 08/21/20 11:30 Pulse Ox 97 08/21/20 11:30 Weight - Most Recent: 137.393 kg I&O - Last 24 hours: Intake & Output 08/20/20 08/21/20 08/21/20 22:59 06:59 14:59 Intake Total 2520 2700 Output Total 2450 2500 Balance 70 200 Lab Results - Last 24 hrs: Laboratory Results - last 24 hr 08/20/20 08/21/20 08/21/20 Range/Units 17:06 06:10 06:10 WBC 5.87 (4.0-11.0) K/uL RBC 4.60 (4.50-5.90) M/uL Hgb 13.6 (13.0-17.0) g/dL Hct 41.5 (38.0-50.0) % MCV 90.2 (80.0-98.0) fL MCH 29.6 (27.0-32.0) pg MCHC 32.8 (31.0-37.0) g/dL RDW Std Deviation 43.3 (28.0-62.0) fl RDW Coeff of [place]isl[place] 13 (11.0-15.0) % Plt Count 166 (150-400) K/uL MPV 9.40 (7.40-12.00) fL Neut % (Auto) 72.4 (48.0-80.0) % Lymph % (Auto) 17.5 (16.0-40.0) % [place] % (Auto) 9.9 (0.0-15.0) % Eos % (Auto) 0.0 (0.0-7.0) % Baso % (Auto) 0.2 (0.0-1.5) % Neut # (Auto) 4.3 (1.4-5.7) K/uL Lymph # (Auto) 1.0 (0.6-2.4) K/uL [place] # (Auto) 0.6 (0.0-0.8) K/uL Eos # (Auto) 0.0 (0.0-0.7) K/uL Baso # (Auto) 0.0 (0.0-0.1) K/uL Nucleated RBC % 0.0 /100WBC Nucleated RBCs # 0 K/uL Sodium 134 L (136-148) mmol/L Potassium 4.1 (3.5-5.1) mmol/L Chloride 98 (98-107) mmol/L Carbon Dioxide 21.0 (21.0-32.0) mmol/L BUN 19 H (7.0-18.0) mg/dL Creatinine 0.8 (0.8-1.3) mg/dL Est Cr Clr Drug Dosing 115.38 mL/min Estimated GFR (MDRD) > 60.0 ml/min Glucose 351 H (74-106) mg/dL POC Glucose 344 H (60-110) mg/dL Calcium 8.6 (8.5-10.1) mg/dL Magnesium 1.9 (1.8-2.4) mg/dL Total Bilirubin 0.4 (0.2-1.0) mg/dL AST 17 (15-37) IU/L ALT 30 (14-63) IU/L Alkaline Phosphatase 63 (46-116) U/L Total Protein 7.0 (6.4-8.2) g/dL Albumin 2.9 L (3.4-5.0) g/dL Globulin 4.1 H (2.6-4.0) g/dL Albumin/Globulin Ratio 0.7 L (0.9-1.6) 08/21/20 08/21/20 Range/Units 06:31 11:39 WBC (4.0-11.0) K/uL RBC (4.50-5.90) M/uL Hgb (13.0-17.0) g/dL Hct (38.0-50.0) % MCV (80.0-98.0) fL MCH (27.0-32.0) pg MCHC (31.0-37.0) g/dL RDW Std Deviation (28.0-62.0) fl RDW Coeff of [place]isl[place] (11.0-15.0) % Plt Count (150-400) K/uL MPV (7.40-12.00) fL Neut % (Auto) (48.0-80.0) % Lymph % (Auto) (16.0-40.0) % [place] % (Auto) (0.0-15.0) % Eos % (Auto) (0.0-7.0) % Baso % (Auto) (0.0-1.5) % Neut # (Auto) (1.4-5.7) K/uL Lymph # (Auto) (0.6-2.4) K/uL [place] # (Auto) (0.0-0.8) K/uL Eos # (Auto) (0.0-0.7) K/uL Baso # (Auto) (0.0-0.1) K/uL Nucleated RBC % /100WBC Nucleated RBCs # K/uL Sodium (136-148) mmol/L Potassium (3.5-5.1) mmol/L Chloride (98-107) mmol/L Carbon Dioxide (21.0-32.0) mmol/L BUN (7.0-18.0) mg/dL Creatinine (0.8-1.3) mg/dL Est Cr Clr Drug Dosing mL/min Estimated GFR (MDRD) ml/min Glucose (74-106) mg/dL POC Glucose 327 H 352 H (60-110) mg/dL Calcium (8.5-10.1) mg/dL Magnesium (1.8-2.4) mg/dL Total Bilirubin (0.2-1.0) mg/dL AST (15-37) IU/L ALT (14-63) IU/L Alkaline Phosphatase (46-116) U/L Total Protein (6.4-8.2) g/dL Albumin (3.4-5.0) g/dL Globulin (2.6-4.0) g/dL Albumin/Globulin Ratio (0.9-1.6) Med Orders - Current: Current Medications Acetaminophen (Tylenol) 650 mg PO Q4H PRN PRN Reason: Pain (Mild 1-3)/fever Albuterol/Ipratropium (Combivent Respimat) 0 gm INH Q4H PRN PRN Reason: Dyspnea Aspirin (Halfprin) 81 mg PO DAILY [facility] Last Admin: 08/21/20 08:01 Dose: 81 mg Documented by: Atorvastatin Calcium (Lipitor) 10 mg PO BEDTIME [facility] Last Admin: 08/20/20 20:20 Dose: 10 mg Documented by: Dexamethasone (Dexamethasone) 6 mg PO DAILY [facility] Last Admin: 08/21/20 08:00 Dose: 6 mg Documented by: Dextrose/Water (Dextrose 50% In Water) 50 ml IV ASDIRECTED PRN PRN Reason: Hypoglycemia Docusate Sodium (Colace) 100 mg PO BID PRN PRN Reason: Constipation Enoxaparin Sodium (Lovenox) 40 mg SUBCUT Q12H [facility] Last Admin: 08/21/20 11:10 Dose: Not Given Documented by: Glucagon (Glucagen) 1 mg IM ASDIRECTED PRN PRN Reason: Hypoglycemia Remdesivir 100 mg/ Sodium (Chloride) 100 mls @ 100 mls/hr IV Q24H [facility] Stop: 08/24/20 09:14 Last Admin: 08/21/20 07:53 Dose: 100 mls/hr Documented by: Levofloxacin/Dextrose 750 mg/ (Premix) 150 mls @ 100 mls/hr IV Q24H [facility] Last Admin: 08/21/20 11:03 Dose: 100 mls/hr Documented by: Insulin Aspart (Novolog) 0 unit SUBCUT TIDAC [facility]; Protocol Last Admin: 08/21/20 11:46 Dose: 15 units Documented by: Insulin Aspart (Novolog) 4 unit SUBCUT TIDAC [facility] Last Admin: 08/21/20 11:47 Dose: 4 units Documented by: Insulin Glargine (Lantus Solostar) 8 units SUBCUT BEDTIME [facility] Last Admin: 08/20/20 20:21 Dose: 8 unit Documented by: Lisinopril (Prinivil) 20 mg PO DAILY [facility] Last Admin: 08/21/20 08:01 Dose: 20 mg Documented by: Ondansetron HCl (Zofran) 4 mg IVPUSH Q4H PRN PRN Reason: Nausea Pantoprazole Sodium (Protonix) 40 mg PO ACBREAKFAST [facility] Last Admin: 08/21/20 06:33 Dose: 40 mg Documented by: Paroxetine HCl (Paxil) 20 mg PO DAILY [facility] Last Admin: 08/21/20 08:01 Dose: 20 mg Documented by: Sodium Chloride (Saline Flush) 2.5 ml FLUSH ASDIRECTED PRN PRN Reason: Keep Vein Open Discontinued Medications Enoxaparin Sodium (Lovenox) 40 mg SUBCUT Q24H [facility] Last Admin: 08/19/20 14:43 Dose: 40 mg Documented by: Remdesivir 200 mg/ Sodium (Chloride) 250 mls @ 250 mls/hr IV ONETIME ONE Stop: 08/20/20 08:07 Last Admin: 08/20/20 08:54 Dose: 250 mls/hr Documented by: Insulin Aspart (Novolog) 0 unit SUBCUT TIDAC [facility]; Protocol Last Admin: 08/20/20 08:17 Dose: 4 units Documented by: Insulin Glargine (Lantus Solostar) 5 units SUBCUT BEDTIME [facility] Last Admin: 08/19/20 20:13 Dose: 5 units Documented by: Iopamidol (Isovue Multipack-370 (76%)) 100 ml IVPUSH ONETIME STA Stop: 08/19/20 18:20 Last Admin: 08/19/20 18:22 Dose: 100 ml Documented by: - Exam Quality Assessment: Reports: DVT Prophylaxis. Denies: Supplemental Oxygen General: Reports: Alert, Oriented, Cooperative, No Acute Distress Lungs: Reports: Clear to Auscultation, Normal Respiratory Effort Cardiovascular: Reports: Regular Rate, Regular Rhythm GI/Abdominal Exam: Normal Bowel Sounds, Soft, Non-Tender, Other (Obese abdomen) Extremities: Normal Inspection, Normal Range of Motion, Non-Tender, No Pedal Edema Neurological: Reports: No New Focal Deficit Psy/Mental Status: Reports: Alert, Normal Affect, Normal Mood
== END 2020-08-21 16:00 | disposition home or self-care (01) | DRG 177 ==
LOC: MW.MS 13:36
PROVIDERS: ADMIT Internal Medicine; ATTEND Internal Medicine
PROC: XW033E5 Introduction of Remdesivir Anti-infective into Peripheral Vein, Percutaneous Approach, New Technology Group 5 (ICD-10-PCS; principal; 2020-08-20)
DX: U07.1 COVID-19 (principal); J12.82 Pneumonia due to coronavirus disease 2019; J96.90 Respiratory failure, unspecified, unspecified whether with hypoxia or hypercapnia; J45.21 Mild intermittent asthma with (acute) exacerbation; Z68.41 Body mass index [BMI] 40.0-44.9, adult; E66.9 Obesity, unspecified; E78.00 Pure hypercholesterolemia, unspecified; I10 Essential (primary) hypertension; K21.9 Gastro-esophageal reflux disease without esophagitis; F41.9 Anxiety disorder, unspecified; F32.9 Major depressive disorder, single episode, unspecified; E11.9 Type 2 diabetes mellitus without complications; M17.11 Unilateral primary osteoarthritis, right knee; Z91.09 Other allergy status, other than to drugs and biological substances; Z79.82 Long term (current) use of aspirin; Z79.84 Long term (current) use of oral hypoglycemic drugs
CPT/HCPCS: 36410; 36415; 71275; 71275-26; 80053; 82962; 83735; 85025; 93970; 93970-26; 94667; A9270-GY; J1650; J1956; J7050; J8540; Q9967

== ENCOUNTER 2021-08-21 15:45 | Inpatient (IN) | payer BC ==
[2021-08-21] MEDS ORDERED: Sodium Chloride 0.9% 10 ML Syringe FLUSH PRN (15:47)
[2021-08-21] MEDS ORDERED: Sodium Chloride 0.9% 2.5 ML Syringe FLUSH PRN (15:47)
[2021-08-21] MEDS ORDERED: Ondansetron 4 MG/2 ML SDV IVPUSH ONE (15:59)
[2021-08-21] MEDS ORDERED: Sodium Chloride 0.9% 1,000 ML IV ONE ×3 (15:59→18:57)
[2021-08-21] MEDS ORDERED: Alum Hydro/Mag Hydro/Simeth XS 15 ML, Metoclopramide 5 MG, Lidocaine 2% 5 ML PO ONE ×3 (16:00)
[2021-08-21] MEDS ORDERED: Ketorolac 30 MG/ML SDV IVPUSH ONE (16:01)
--- NOTE | 2021-08-21 16:16 | EDM.PDOC ---
ED HPI GENERAL MEDICAL PROBLEM - General Chief Complaint: Abdominal Pain Stated Complaint: ABDOMINAL PAIN Time Seen by Provider: 08/21/21 15:47 Source of Information: Reports: Patient History Limitations: Reports: No Limitations - History of Present Illness INITIAL COMMENTS - FREE TEXT/NARRATIVE: HISTORY AND PHYSICAL: History of present illness: Patient is a 46-year-old male who presents to the emergency room with complaints of upper abdominal pain, nausea and vomiting since this morning. He states pain radiates across the generalized upper abdomen, worse when laying down flat. Does not notice it being associated with eating or drinking. Has not been able to keep anything down since this afternoon. Patient does have a history of abdominal hernia with repair, asthma, hypertension and type 2 diabetes (uses insulin). Patient denies any fever, chills, headache, change in vision, syncope or near syncope. Denies any chest pain, back pain, shortness of breath or cough. Denies any abdominal pain, nausea, vomiting, diarrhea, constipation or dysuria. Has not noted any blood in urine or stool. Patient has been eating and drinking appropriately. No recent travel or sick contacts. Review of systems: As per history of present illness and below otherwise all systems reviewed and negative. Past medical history: As per history of present illness and as reviewed below otherwise noncontributory. Surgical history: As per history of present illness and as reviewed below otherwise noncontributory. Social history: See social history for further information Family history: As per history of present illness and as reviewed below otherwise noncontributory. Physical exam: General: Well developed and well nourished 46-year-old male. Alert and orientated x 3. Nontoxic in appearance and in no acute distress. Vital signs are stable and have been reviewed by me. Nursing notes were reviewed. HEENT: Atraumatic, normocephalic, pupils equal and reactive bilaterally, negative for conjunctival pallor or scleral icterus, mucous membranes moist, throat clear, neck supple, nontender, trachea midline. No drooling or trismus noted. No meningeal signs. No hot potato voice noted. Lungs: Clear to auscultation bilaterally. No wheezes, rales, or rhonchi. Chest nontender. Normal work of breathing, no accessory muscles used. Heart: S1S2, regular rate and rhythm without overt murmur, gallops, or rubs. No JVD. No peripheral edema Abdomen: Soft, obese, right upper quadrant/left upper quadrant tenderness. Normoactive bowel sounds. Negative for masses or costovertebral tenderness. Skin: Intact, warm, dry. No lesions or rashes noted. Hematologic: No petechiae or purpra. Mucosa appropriate color and normal nail bed color and refill. Extremities: Atraumatic, moves all extremities per self without difficulty or deficits, negative for cords or calf pain. Neurovascular unremarkable. Neuro: Awake, alert, oriented. Cranial nerves II through XII unremarkable. Cerebellum unremarkable. Motor and sensory unremarkable throughout. Exam nonfocal. Psychiatric: Mood and affect are appropriate. Normal thought process. Answering questions appropriately. Please note that the patient was seen and evaluated during the 2019 SARS-CoV-2 novel coronavirus pandemic period. Community viral transmission is ongoing at time of this encounter and the emergency department is operating under pandemic response procedures. Medical Decision Making: Patient is a 46-year-old male who presents to the emergency room with complaints of nausea, vomiting and upper abdominal pain since this morning. Patient is obese, tenderness to the upper quadrants bilaterally. States pain is worse with laying flat. We will do basic lab work along with a CT scan of the abdomen. Initially patient stated he was unable to get a ride and was given Toradol for pain management. He states he continues to have discomfort and would like something stronger, will get a ride if needed. We will give Dilaudid IV. Patient's vital signs are stable. Patient does have a lipase of 9178 and elevated AST and ALT in the 600s. Patient denies any alcohol use. States he may have had a few drinks over [place] although has not had any since and it was not more than 2 or 3 beers. States he has never had pancreatitis in the past. He does have some family members who have "fatty liver" but is never experienced any problems with this in the past either. CT pending. CT shows acute pancreatitis. Presumed secondary to reactive thickening of the duodenum favored over duodenitis. Correlate with laboratory studies. Moderately dense steatosis of the liver. Scarring at the site of prior subcutaneous surgical drain with no recurrent or residual fluid. Colonic diverticulosis. I have talked with the patient about today's findings, in addition to providing specific details for plan of care. Reassessment at the time of disposition demonstrates that the patient is in no acute distress. I did speak with Dr. Ortiz, hospitalist on-call, he is agreeable to take in this patient for further care and management. Patient will be admitted for inpatient care for IV fluids and pain management. Diagnostics: CBC, CMP, Lipase, UA, CT abd/pelvis, COVID Therapeutics: NS, GI cocktail, Toradol, Zofran Impression: Pancreatitis Transaminitis Definitive disposition and diagnosis as appropriate pending reevaluation and review of above. Abdominal Pain Score (Numeric/FACES): 10 - Related Data Allergies Allergy/AdvReac Type Severity Reaction Status Date / Time house dust Allergy Other Verified 08/21/21 16:00 mold Allergy Shortness Verified 08/21/21 16:00 of Breath dust Allergy Shortness Uncoded 08/21/21 16:00 of Breath Home Meds: Home Meds Lisinopril 20 mg PO DAILY 07/25/15 [History] metFORMIN [Glucophage] 1,000 mg PO BIDMEALS 07/30/15 [History] glipiZIDE [Glipizide ER] 10 mg PO DAILY 10/20/15 [History] Aspirin [Adult Low Dose Aspirin EC] 81 mg PO DAILY 06/24/19 [History] PARoxetine HCl [Paxil] 20 mg PO DAILY 06/24/19 [History] atorvaSTATin [Lipitor] 10 mg PO BEDTIME 08/19/20 [History] Acetaminophen [Tylenol] 650 mg PO Q4H PRN tablet 08/21/20 [Rx] Albuterol/Ipratropium [Combivent Respimat] 1 puff INH Q4H PRN #1 inhaler 08/21/20 [Rx] Insulin Glargine,Hum.Rec.Anlog [Lantus Solostar] 10 unit SQ BEDTIME #1 box 08/21/20 [Rx] Past Medical History HEENT History: Reports: Other (See Below) Other HEENT History: Wears eyeglasses Cardiovascular History: Reports: Angina, High Cholesterol, Hypertension Respiratory History: Reports: Asthma Other Respiratory History: seasonal asthma Gastrointestinal History: Reports: GERD, Other (See Below) Other Gastrointestinal History: occasional heartburn, Genitourinary History: Reports: None Musculoskeletal History: Reports: Arthritis Other Musculoskeletal History: arthritis in rt knee Neurological History: Reports: Concussion Psychiatric History: Reports: Anxiety, Depression Endocrine/Metabolic History: Reports: Diabetes, Type II, Obesity/BMI 30+ Hematologic History: Reports: Blood Transfusion(s) Immunologic History: Reports: None Oncologic (Cancer) History: Reports: None Dermatologic History: Reports: None - Infectious Disease History Infectious Disease History: Reports: Chicken Pox, Influenza - Past Surgical History Head Surgeries/Procedures: Reports: None HEENT Surgical History: Reports: Adenoidectomy, Tonsillectomy GI Surgical History: Reports: Hernia, Abdominal, Hernia, Inguinal, Hernia Repair/Other Musculoskeletal Surgical History: Reports: None Social & Family History - Family History Family Medical History: No Pertinent Family History HEENT: Reports: Cataract Cardiac: Reports: Heart Failure, Pacemaker Respiratory: Reports: Asthma, Other (See Below) Other Respiratory Family Hisory: Pneumonia GI: Reports: Diverticulitis : Reports: Renal Calculus Musculoskeletal: Reports: Arthritis Neurological: Reports: Migraines Psychiatric: Reports: Depression Endocrine/Metabolic: Reports: Diabetes, type II, Obesity/MBI 30+ Oncologic: Reports: Prostate, Renal - Caffeine Use Caffeine Use: Reports: Coffee - Living Situation & Occupation Living situation: Reports: Single Occupation: Employed ED ROS GENERAL - Review of Systems Review Of Systems: Comprehensive ROS is negative, except as noted in HPI. ED EXAM, GI/ABD - Physical Exam Exam: See Below (See dictation) Course - Vital Signs Last Recorded V/S: Last Vital Signs Temp 96.7 F L 08/21/21 15:50 Pulse 78 08/21/21 18:05 Resp 20 08/21/21 15:50 BP 171/101 H 08/21/21 18:05 Pulse Ox 96 08/21/21 18:05 - Orders/Labs/Meds Orders: Active Orders 24 hr Category Date Time Status Admission Status [Patient Status] [ADT] Stat ADT 08/21/21 18:41 Ordered Sodium Chloride 0.9% [Normal Saline] 1,000 ml Med 08/21/21 18:42 Ordered IV STAT Sodium Chloride 0.9% [Saline Flush] Med 08/21/21 15:47 Active 10 ml FLUSH ASDIRECTED PRN Sodium Chloride 0.9% [Saline Flush] Med 08/21/21 15:47 Active 2.5 ml FLUSH ASDIRECTED PRN Saline Lock Insert [OM.PC] Stat Oth 08/21/21 15:47 Ordered Medication Orders Sodium Chloride (Normal Saline) 1,000 mls @ 999 mls/hr IV STAT ONE Stop: 08/21/21 19:42 Sodium Chloride (Sodium Chloride 0.9% 10 Ml Syringe) 10 ml FLUSH ASDIRECTED PRN PRN Reason: Keep Vein Open Last Admin: 08/21/21 16:32 Dose: 10 ml Documented by: ELLI Sodium Chloride (Sodium Chloride 0.9% 2.5 Ml Syringe) 2.5 ml FLUSH ASDIRECTED PRN PRN Reason: Keep Vein Open Last Admin: 08/21/21 16:32 Dose: 2.5 ml Documented by: ELLI Labs: Laboratory Tests 08/21/21 08/21/21 08/21/21 Range/Units 16:15 16:15 16:15 WBC 10.80 (4.0-11.0) K/uL RBC 5.12 (4.50-5.90) M/uL Hgb 15.0 (13.0-17.0) g/dL Hct 45.9 (38.0-50.0) % MCV 89.6 (80.0-98.0) fL MCH 29.3 (27.0-32.0) pg MCHC 32.7 (31.0-37.0) g/dL RDW Std Deviation 44.8 (28.0-62.0) fl RDW Coeff of [place] 14 (11.0-15.0) % Plt Count 190 (150-400) K/uL MPV 9.80 (7.40-12.00) fL Neut % (Auto) 78.0 (48.0-80.0) % Lymph % (Auto) 11.3 L (16.0-40.0) % [place] % (Auto) 10.5 (0.0-15.0) % Eos % (Auto) 0.1 (0.0-7.0) % Baso % (Auto) 0.1 (0.0-1.5) % Neut # (Auto) 8.4 H (1.4-5.7) K/uL Lymph # (Auto) 1.2 (0.6-2.4) K/uL [place] # (Auto) 1.1 H (0.0-0.8) K/uL Eos # (Auto) 0.0 (0.0-0.7) K/uL Baso # (Auto) 0.0 (0.0-0.1) K/uL Nucleated RBC % 0.0 /100WBC Nucleated RBCs # 0 K/uL Sodium 139 (136-148) mmol/L Potassium 3.7 (3.5-5.1) mmol/L Chloride 100 (98-107) mmol/L Carbon Dioxide 27.1 (21.0-32.0) mmol/L BUN 17 (7.0-18.0) mg/dL Creatinine 0.9 (0.8-1.3) mg/dL Est Cr Clr Drug Dosing 101.47 mL/min Estimated GFR (MDRD) > 60.0 ml/min Glucose 350 H (74-106) mg/dL Calcium 9.1 (8.5-10.1) mg/dL Total Bilirubin 1.7 H (0.2-1.0) mg/dL AST 683 H (15-37) IU/L ALT 698 H (14-63) IU/L Alkaline Phosphatase 154 H (46-116) U/L Troponin I < 0.050 (0.000-0.056) ng/mL Total Protein 7.3 (6.4-8.2) g/dL Albumin 3.6 (3.4-5.0) g/dL Globulin 3.7 (2.6-4.0) g/dL Albumin/Globulin Ratio 1.0 (0.9-1.6) Lipase 9178 H (73-393) U/L Urine Color Urine Appearance Urine pH (5.0-8.0) Ur Specific [place] (1.001-1.035) Urine Protein (NEGATIVE) mg/dL Urine Glucose (UA) (NEGATIVE) mg/dL Urine Ketones (NEGATIVE) mg/dL Urine Occult Blood (NEGATIVE) Urine Nitrite (NEGATIVE) Urine Bilirubin (NEGATIVE) Urine Urobilinogen (<2.0) EU/dL Ur Leukocyte Esterase (NEGATIVE) Urine RBC (0-2/HPF) Urine WBC (0-5/HPF) Ur Epithelial Cells (NONE-FEW) Urine Bacteria (NEGATIVE) Influenza Type A RNA (NEGATIVE) Influenza Type B RNA (NEGATIVE) SARS-CoV-2 RNA (ANGIE) (NEGATIVE) 08/21/21 08/21/21 Range/Units 16:20 16:30 WBC (4.0-11.0) K/uL RBC (4.50-5.90) M/uL Hgb (13.0-17.0) g/dL Hct (38.0-50.0) % MCV (80.0-98.0) fL MCH (27.0-32.0) pg MCHC (31.0-37.0) g/dL RDW Std Deviation (28.0-62.0) fl RDW Coeff of [place] (11.0-15.0) % Plt Count (150-400) K/uL MPV (7.40-12.00) fL Neut % (Auto) (48.0-80.0) % Lymph % (Auto) (16.0-40.0) % [place] % (Auto) (0.0-15.0) % Eos % (Auto) (0.0-7.0) % Baso % (Auto) (0.0-1.5) % Neut # (Auto) (1.4-5.7) K/uL Lymph # (Auto) (0.6-2.4) K/uL [place] # (Auto) (0.0-0.8) K/uL Eos # (Auto) (0.0-0.7) K/uL Baso # (Auto) (0.0-0.1) K/uL Nucleated RBC % /100WBC Nucleated RBCs # K/uL Sodium (136-148) mmol/L Potassium (3.5-5.1) mmol/L Chloride (98-107) mmol/L Carbon Dioxide (21.0-32.0) mmol/L BUN (7.0-18.0) mg/dL Creatinine (0.8-1.3) mg/dL Est Cr Clr Drug Dosing mL/min Estimated GFR (MDRD) ml/min Glucose (74-106) mg/dL Calcium (8.5-10.1) mg/dL Total Bilirubin (0.2-1.0) mg/dL AST (15-37) IU/L ALT (14-63) IU/L Alkaline Phosphatase (46-116) U/L Troponin I (0.000-0.056) ng/mL Total Protein (6.4-8.2) g/dL Albumin (3.4-5.0) g/dL Globulin (2.6-4.0) g/dL Albumin/Globulin Ratio (0.9-1.6) Lipase (73-393) U/L Urine Color YELLOW Urine Appearance CLEAR Urine pH 5.5 (5.0-8.0) Ur Specific [place] 1.020 (1.001-1.035) Urine Protein NEGATIVE (NEGATIVE) mg/dL Urine Glucose (UA) >=1000 (NEGATIVE) mg/dL Urine Ketones TRACE H (NEGATIVE) mg/dL Urine Occult Blood MODERATE H (NEGATIVE) Urine Nitrite NEGATIVE (NEGATIVE) Urine Bilirubin NEGATIVE (NEGATIVE) Urine Urobilinogen 0.2 (<2.0) EU/dL Ur Leukocyte Esterase NEGATIVE (NEGATIVE) Urine RBC 0-2 (0-2/HPF) Urine WBC NONE SEEN (0-5/HPF) Ur Epithelial Cells NOT SEEN (NONE-FEW) Urine Bacteria NOT SEEN (NEGATIVE) Influenza Type A RNA NEGATIVE (NEGATIVE) Influenza Type B RNA NEGATIVE (NEGATIVE) SARS-CoV-2 RNA (ANGIE) NEGATIVE (NEGATIVE) Meds: Medications Generic Name Dose Route Start Last Admin Trade Name Herbert PRN Reason Stop Dose Admin Sodium Chloride 1,000 mls @ 999 mls/hr 08/21/21 18:42 Normal Saline IV 08/21/21 19:42 STAT ONE Sodium Chloride 10 ml 08/21/21 15:47 08/21/21 16:32 Sodium Chloride 0.9% 10 Ml Syringe FLUSH 10 ml ASDIRECTED PRN Administration Keep Vein Open Sodium Chloride 2.5 ml 08/21/21 15:47 08/21/21 16:32 Sodium Chloride 0.9% 2.5 Ml Syringe FLUSH 2.5 ml ASDIRECTED PRN Administration Keep Vein Open Discontinued Medications Generic Name Dose Route Start Last Admin Trade Name Herbert PRN Reason Stop Dose Admin Alum [place]/Mag [place]/Simeth XS 0 ml 08/21/21 16:00 08/21/21 16:09 15 ml/ Metoclopramide HCl 5 PO 08/21/21 16:01 25 each mg/ Lidocaine HCl 5 ml ONETIME ONE Administration Hydromorphone HCl 1 mg 08/21/21 17:04 08/21/21 17:18 Hydromorphone 1 Mg/Ml Syringe IVPUSH 08/21/21 17:05 1 mg ONETIME ONE Administration Sodium Chloride 1,000 mls @ 999 mls/hr 08/21/21 15:59 08/21/21 16:10 Normal Saline IV 08/21/21 16:59 999 mls/hr STAT ONE Administration Iopamidol 100 ml 08/21/21 17:45 08/21/21 17:46 Iopamidol 755 Mg/Ml 500 Ml Multipack Bottle IVPUSH 08/21/21 17:46 100 ml ONETIME STA Administration Ketorolac Tromethamine 30 mg 08/21/21 16:01 08/21/21 16:09 Ketorolac 30 Mg/Ml Sdv IVPUSH 08/21/21 16:02 30 mg ONETIME ONE Administration Ondansetron HCl 4 mg 08/21/21 15:59 08/21/21 16:09 Ondansetron 4 Mg/2 Ml Sdv IVPUSH 08/21/21 16:00 4 mg ONETIME ONE Administration Departure - Departure Time of Disposition: 18:49 Disposition: Admitted As Inpatient 65 Clinical Impression: Transaminitis, History of diabetes mellitus, type II Acute pancreatitis Qualifiers: Pancreatitis type: unspecified pancreatitis type Acute pancreatitis complication: unspecified Qualified Code(s): K85.90 - Acute pancreatitis without necrosis or infection, unspecified - Discharge Information Referrals: Rachael Keenan PA [Primary Care Provider] - Forms: ED Department Discharge Sepsis Event Note (ED) - Evaluation Sepsis Screening Result: No Definite Risk - Focused Exam Vital Signs: Vital Signs Temp Pulse Resp BP Pulse Ox 08/21/21 18:05 78 171/101 H 96 08/21/21 17:02 67 195/105 H 98 08/21/21 15:50 96.7 F L 70 20 190/97 H 97 - My Orders Last 24 Hours: My Active Orders 08/21/21 15:47 Sodium Chloride 0.9% [Saline Flush] 10 ml FLUSH ASDIRECTED PRN Sodium Chloride 0.9% [Saline Flush] 2.5 ml FLUSH ASDIRECTED PRN Saline Lock Insert [OM.PC] Stat 08/21/21 18:41 Admission Status [Patient Status] [ADT] Stat 08/21/21 18:42 Sodium Chloride 0.9% [Normal Saline] 1,000 ml IV STAT - Assessment/Plan Last 24 Hours: My Active Orders 08/21/21 15:47 Sodium Chloride 0.9% [Saline Flush] 10 ml FLUSH ASDIRECTED PRN Sodium Chloride 0.9% [Saline Flush] 2.5 ml FLUSH ASDIRECTED PRN Saline Lock Insert [OM.PC] Stat 08/21/21 18:41 Admission Status [Patient Status] [ADT] Stat 08/21/21 18:42 Sodium Chloride 0.9% [Normal Saline] 1,000 ml IV STAT
--- NOTE | 2021-08-21 16:45 | PCM.EKG ---
#1 Interpretation EKG Date: 08/21/21 Time: 16:35 Rhythm: NSR Rate (Beats/Min): 70 [place]: Normal P-Wave: Present QRS: Normal ST-T: Normal QT: Normal MS/PQ Interval: 159 EKG Interpretation Comments: no acute ischemic changes
[2021-08-21] MEDS ORDERED: HYDROmorphone 1 MG/ML Syringe IVPUSH ONE (17:04)
[2021-08-21 17:10] LABS: CORONAVIRUS COVID-19 NAA NEGATIVE (NEGATIVE); INFLUENZA A NAA NEGATIVE (NEGATIVE); INFLUENZA B NAA NEGATIVE (NEGATIVE)
[2021-08-21 17:11] LABS: BLOOD UREA NITROGEN,BUN 17 mg/dL (7.0-18.0); CARBON DIOXIDE,CO2 27.1 mmol/L (21.0-32.0); CHLORIDE,CL 100 mmol/L (98-107); GLUCOSE RANDOM 350 mg/dL (74-106); POTASSIUM,K 3.7 mmol/L (3.5-5.1); SODIUM,NA 139 mmol/L (136-148)
[2021-08-21 17:12] LABS: LIPASE 9178 U/L (73-393)
[2021-08-21] MEDS ORDERED: Iopamidol 755 MG/ML 500 ML Multipack Bottle IVPUSH STA (17:45)
--- NOTE | 2021-08-21 17:54 | CR ---
INDICATION: Chest pain, shortness of breath TECHNIQUE: Chest 1 view(s) COMPARISON: Chest radiograph dated 08/19/2020. FINDINGS: Limited evaluation secondary to lung hypoinflation. Cardiomediastinal silhouette and pulmonary vasculature are within normal limits. Patchy left basilar opacities, may reflect atelectasis versus developing pneumonia. No significant pleural effusion, no definite pneumothorax. No acute chest wall abnormality. IMPRESSION: Patchy left basilar opacities, may reflect atelectasis versus developing pneumonia. Dictated by Stephen Cary MD @ 08/21/2021 5:52:10 PM (Electronically Signed)
--- NOTE | 2021-08-21 18:31 | CT ---
INDICATION: Upper abdominal pain with nausea and vomiting. COMPARISON: [address] TECHNIQUE: 100 mL [id number] IV contrast. FINDINGS: Moderately dense low attenuation throughout liver parenchyma. Moderate strandy infiltrative edema and fluid attenuation around the pancreas, left posterior peritoneal reflection and around a mildly thickened 2nd and 3rd segments of the duodenum with fluid tracking inferior from the duodenum ventral from the aorta and to the external iliac origin. No organized fluid. Pancreatic parenchyma enhances with no ductal dilatation. Gallbladder and biliary ducts are normal with no evidence for cholelithiasis or choledocholithiasis. Normally enhancing kidneys. No dilatation of small bowel. Primary anastomotic staple line of bowel in the left mid abdomen. Surgical incision changes in the subcutaneous abdominal wall with scarring at the site of the prior percutaneous drain but no residual or recurrent fluid. No dilatation or inflammation of large bowel. Scattered diverticula of the left colon particularly the sigmoid. No bone finding of significance. IMPRESSION: 1. Acute pancreatitis. Presumed secondary to reactive thickening of the duodenum favored over duodenitis. Correlate with laboratory studies. 2. Moderately dense steatosis of the liver. 3. Scarring at the site of prior subcutaneous surgical drain with no recurrent or residual fluid. 4. Colonic diverticulosis. Please note that all CT scans at this facility use dose modulation, iterative reconstruction, and/or weight-based dosing when appropriate to reduce radiation dose to as low as reasonably achievable. Dictated by Tito Thompson MD @ 08/21/2021 6:29:33 PM (Electronically Signed)
[2021-08-21] MEDS ORDERED: Glucagon,Human Recombinant 1 MG Vial IM PRN (19:00)
[2021-08-21] MEDS ORDERED: 50% Dextrose in Water 50 ML Syringe IVPUSH PRN (19:00)
[2021-08-21] MEDS ORDERED: Enoxaparin 40 MG/0.4 ML Syringe SUBCUT SCH (19:15)
--- NOTE | 2021-08-21 19:39 | PCM.HP.2 ---
H&P History of Present Illness - General Date of Service: 08/21/21 Admit Problem/Dx: Admission Diagnosis/Problem Admission Diagnosis/Problem Pancreatitis - History of Present Illness Initial Comments - Free Text/Narative: 46 yo male with pmh of DM, Hypertension, hyperlipidemia, and obesity. Patient reports four day history of epigatric pain that worsens with food. He denies any fevers, chills, nausea or vomiting. In the ED he was noted to have a elevated LFTs, and lipase of 9178. CT scan of the abdomen showed acute pancreatitis. Patient reports a history of abdominal hernia with mesh repair. Abdominal Pain Score (Numeric/FACES): 10 - Related Data Allergies/Adverse Reactions: Allergies Allergy/AdvReac Type Severity Reaction Status Date / Time house dust Allergy Other Verified 08/21/21 21:33 mold Allergy Shortness Verified 08/21/21 21:33 of Breath dust Allergy Shortness Uncoded 08/21/21 16:00 of Breath Home Medications: Home Meds Lisinopril 20 mg PO DAILY 07/25/15 [History] glipiZIDE [Glipizide ER] 10 mg PO DAILY 10/20/15 [History] Aspirin [Adult Low Dose Aspirin EC] 81 mg PO DAILY 06/24/19 [History] PARoxetine HCl [Paxil] 40 mg PO DAILY 06/24/19 [History] Acetaminophen [Tylenol] 650 mg PO Q4H PRN tablet 08/21/20 [Rx] Insulin Glargine,Hum.Rec.Anlog [Lantus Solostar] 86 units SQ BEDTIME 08/21/21 [History] Albuterol [Ventolin HFA] 2 inh IH Q4H PRN 08/22/21 [History] Multivitamin 1 tab PO DAILY 08/22/21 [History] Rosuvastatin [Crestor] 20 mg PO BEDTIME 08/22/21 [History] metFORMIN HCl [Metformin HCl ER] 1,000 unit PO BIDMEALS 08/22/21 [History] Past Medical History HEENT History: Reports: Other (See Below) Other HEENT History: Wears eyeglasses Cardiovascular History: Reports: Angina, High Cholesterol, Hypertension Respiratory History: Reports: Asthma Other Respiratory History: seasonal asthma Gastrointestinal History: Reports: GERD, Other (See Below) Other Gastrointestinal History: occasional heartburn, Genitourinary History: Reports: None Musculoskeletal History: Reports: Arthritis Other Musculoskeletal History: arthritis in rt knee Neurological History: Reports: Concussion Psychiatric History: Reports: Anxiety, Depression Endocrine/Metabolic History: Reports: Diabetes, Type II, Obesity/BMI 30+ Hematologic History: Reports: Blood Transfusion(s) Immunologic History: Reports: None Oncologic (Cancer) History: Reports: None Dermatologic History: Reports: None - Infectious Disease History Infectious Disease History: Reports: Chicken Pox, Influenza - Past Surgical History Head Surgeries/Procedures: Reports: None HEENT Surgical History: Reports: Adenoidectomy, Tonsillectomy GI Surgical History: Reports: Hernia, Abdominal, Hernia, Inguinal, Hernia Repair/Other Musculoskeletal Surgical History: Reports: None Social & Family History - Family History Family Medical History: No Pertinent Family History HEENT: Reports: Cataract Cardiac: Reports: Heart Failure, Pacemaker Respiratory: Reports: Asthma, Other (See Below) Other Respiratory Family Hisory: Pneumonia GI: Reports: Diverticulitis : Reports: Renal Calculus Musculoskeletal: Reports: Arthritis Neurological: Reports: Migraines Psychiatric: Reports: Depression Endocrine/Metabolic: Reports: Diabetes, type II, Obesity/MBI 30+ Oncologic: Reports: Prostate, Renal - Tobacco Use Second Hand Smoke Exposure: No - Caffeine Use Caffeine Use: Reports: None - Recreational Drug Use Recreational Drug Use: No - Living Situation & Occupation Living situation: Reports: Single Occupation: Employed H&P Review of Systems - Review of Systems: Review Of Systems: Comprehensive ROS is negative, except as noted in HPI. Exam - Exam Exam: See Below - Vital Signs Vital Signs: Last Vital Signs Temp 35.9 C L 08/21/21 15:50 Pulse 72 08/21/21 19:05 Resp 20 08/21/21 15:50 BP 182/104 H 08/21/21 19:05 Pulse Ox 97 08/21/21 19:05 Weight: 141.521 kg - Exam General: Alert, Oriented HEENT: Mucosa Moist & [place] Neck: Supple Lungs: Clear to Auscultation, Normal Respiratory Effort Cardiovascular: Regular Rate, Regular Rhythm GI/Abdominal Exam: Normal Bowel Sounds, Soft, Non-Tender Extremities: Non-Tender, No Pedal Edema Skin: Warm, Dry, Intact Neurological: No: Focal Deficit - Patient Data Lab Results Last 24 hrs: Laboratory Results - last 24 hr 08/21/21 08/21/21 08/21/21 Range/Units 16:15 16:15 16:15 WBC 10.80 (4.0-11.0) K/uL RBC 5.12 (4.50-5.90) M/uL Hgb 15.0 (13.0-17.0) g/dL Hct 45.9 (38.0-50.0) % MCV 89.6 (80.0-98.0) fL MCH 29.3 (27.0-32.0) pg MCHC 32.7 (31.0-37.0) g/dL RDW Std Deviation 44.8 (28.0-62.0) fl RDW Coeff of Aislinn 14 (11.0-15.0) % Plt Count 190 (150-400) K/uL MPV 9.80 (7.40-12.00) fL Neut % (Auto) 78.0 (48.0-80.0) % Lymph % (Auto) 11.3 L (16.0-40.0) % Jack % (Auto) 10.5 (0.0-15.0) % Eos % (Auto) 0.1 (0.0-7.0) % Baso % (Auto) 0.1 (0.0-1.5) % Neut # (Auto) 8.4 H (1.4-5.7) K/uL Lymph # (Auto) 1.2 (0.6-2.4) K/uL Jack # (Auto) 1.1 H (0.0-0.8) K/uL Eos # (Auto) 0.0 (0.0-0.7) K/uL Baso # (Auto) 0.0 (0.0-0.1) K/uL Nucleated RBC % 0.0 /100WBC Nucleated RBCs # 0 K/uL Sodium 139 (136-148) mmol/L Potassium 3.7 (3.5-5.1) mmol/L Chloride 100 (98-107) mmol/L Carbon Dioxide 27.1 (21.0-32.0) mmol/L BUN 17 (7.0-18.0) mg/dL Creatinine 0.9 (0.8-1.3) mg/dL Est Cr Clr Drug Dosing 101.47 mL/min Estimated GFR (MDRD) > 60.0 ml/min Glucose 350 H (74-106) mg/dL Calcium 9.1 (8.5-10.1) mg/dL Total Bilirubin 1.7 H (0.2-1.0) mg/dL AST 683 H (15-37) IU/L ALT 698 H (14-63) IU/L Alkaline Phosphatase 154 H (46-116) U/L Troponin I < 0.050 (0.000-0.056) ng/mL Total Protein 7.3 (6.4-8.2) g/dL Albumin 3.6 (3.4-5.0) g/dL Globulin 3.7 (2.6-4.0) g/dL Albumin/Globulin Ratio 1.0 (0.9-1.6) Lipase 9178 H (73-393) U/L Urine Color Urine Appearance Urine pH (5.0-8.0) Ur Specific [place] (1.001-1.035) Urine Protein (NEGATIVE) mg/dL Urine Glucose (UA) (NEGATIVE) mg/dL Urine Ketones (NEGATIVE) mg/dL Urine Occult Blood (NEGATIVE) Urine Nitrite (NEGATIVE) Urine Bilirubin (NEGATIVE) Urine Urobilinogen (<2.0) EU/dL Ur Leukocyte Esterase (NEGATIVE) Urine RBC (0-2/HPF) Urine WBC (0-5/HPF) Ur Epithelial Cells (NONE-FEW) Urine Bacteria (NEGATIVE) Influenza Type A RNA (NEGATIVE) Influenza Type B RNA (NEGATIVE) SARS-CoV-2 RNA (ANGIE) (NEGATIVE) 08/21/21 08/21/21 Range/Units 16:20 16:30 WBC (4.0-11.0) K/uL RBC (4.50-5.90) M/uL Hgb (13.0-17.0) g/dL Hct (38.0-50.0) % MCV (80.0-98.0) fL MCH (27.0-32.0) pg MCHC (31.0-37.0) g/dL RDW Std Deviation (28.0-62.0) fl RDW Coeff of [place]islinn (11.0-15.0) % Plt Count (150-400) K/uL MPV (7.40-12.00) fL Neut % (Auto) (48.0-80.0) % Lymph % (Auto) (16.0-40.0) % Jack % (Auto) (0.0-15.0) % Eos % (Auto) (0.0-7.0) % Baso % (Auto) (0.0-1.5) % Neut # (Auto) (1.4-5.7) K/uL Lymph # (Auto) (0.6-2.4) K/uL Jack # (Auto) (0.0-0.8) K/uL Eos # (Auto) (0.0-0.7) K/uL Baso # (Auto) (0.0-0.1) K/uL Nucleated RBC % /100WBC Nucleated RBCs # K/uL Sodium (136-148) mmol/L Potassium (3.5-5.1) mmol/L Chloride (98-107) mmol/L Carbon Dioxide (21.0-32.0) mmol/L BUN (7.0-18.0) mg/dL Creatinine (0.8-1.3) mg/dL Est Cr Clr Drug Dosing mL/min Estimated GFR (MDRD) ml/min Glucose (74-106) mg/dL Calcium (8.5-10.1) mg/dL Total Bilirubin (0.2-1.0) mg/dL AST (15-37) IU/L ALT (14-63) IU/L Alkaline Phosphatase (46-116) U/L Troponin I (0.000-0.056) ng/mL Total Protein (6.4-8.2) g/dL Albumin (3.4-5.0) g/dL Globulin (2.6-4.0) g/dL Albumin/Globulin Ratio (0.9-1.6) Lipase (73-393) U/L Urine Color YELLOW Urine Appearance CLEAR Urine pH 5.5 (5.0-8.0) Ur Specific [place] 1.020 (1.001-1.035) Urine Protein NEGATIVE (NEGATIVE) mg/dL Urine Glucose (UA) >=1000 (NEGATIVE) mg/dL Urine Ketones TRACE H (NEGATIVE) mg/dL Urine Occult Blood MODERATE H (NEGATIVE) Urine Nitrite NEGATIVE (NEGATIVE) Urine Bilirubin NEGATIVE (NEGATIVE) Urine Urobilinogen 0.2 (<2.0) EU/dL Ur Leukocyte Esterase NEGATIVE (NEGATIVE) Urine RBC 0-2 (0-2/HPF) Urine WBC NONE SEEN (0-5/HPF) Ur Epithelial Cells NOT SEEN (NONE-FEW) Urine Bacteria NOT SEEN (NEGATIVE) Influenza Type A RNA NEGATIVE (NEGATIVE) Influenza Type B RNA NEGATIVE (NEGATIVE) SARS-CoV-2 RNA (ANGIE) NEGATIVE (NEGATIVE) Result Diagrams: 08/23/21 07:07 08/23/21 07:07 Sepsis Event Note - Evaluation Sepsis Screening Result: No Definite Risk - Focused Exam Vital Signs: Vital Signs Temp Pulse Resp BP Pulse Ox 08/21/21 19:05 72 182/104 H 97 08/21/21 18:05 78 171/101 H 96 08/21/21 17:02 67 195/105 H 98 08/21/21 15:50 35.9 C L 70 20 190/97 H 97 - Problem List (1) Acute pancreatitis SNOMED Code(s): 801049172 ICD Code: K85.90 - ACUTE PANCREATITIS WITHOUT NECROSIS OR INFECTION, UNSP Status: Acute Current Visit: Yes Qualifiers: Pancreatitis type: unspecified pancreatitis type Acute pancreatitis complication: unspecified Qualified Code(s): K85.90 - Acute pancreatitis without necrosis or infection, unspecified (2) History of diabetes mellitus, type II SNOMED Code(s): 007437542 ICD Code: Z86.39 - PERSONAL HISTORY OF ENDO, NUTRITIONAL AND METABOLIC DISEASE Status: Acute Current Visit: Yes (3) Transaminitis SNOMED Code(s): 489632767, 480185612 ICD Code: R74.01 - ELEVATION OF LEVELS OF LIVER TRANSAMINASE LEVELS Status: Acute Current Visit: Yes Problem List Initiated/Reviewed/Updated: Yes Orders Last 24hrs: Active Orders 24 hr Category Date Time Status Admission Status [Patient Status] [ADT] Stat ADT 08/21/21 18:41 Active Antiembolic Devices [RC] PER UNIT ROUTINE Care 08/21/21 19:04 Ordered Blood Glucose Check, Bedside [RC] Q6HR Care 08/21/21 19:00 Ordered Oxygen Therapy [RC] PRN Care 08/21/21 19:03 Ordered Up ad Aletha [RC] ASDIRECTED Care 08/21/21 19:03 Ordered VTE/DVT Education [RC] PER UNIT ROUTINE Care 08/21/21 19:03 Ordered Vital Signs [RC] Q4H Care 08/21/21 19:03 Ordered Nothing per Oral Now Diet [DIET] Diet 08/21/21 Breakfast Ordered Abdomen Ltd [US] AM Exams 08/22/21 05:11 Ordered CBC WITH AUTO DIFF [HEME] AM Lab 08/22/21 05:11 Ordered COMPREHENSIVE METABOLIC PN,CMP [CHEM] AM Lab 08/22/21 05:11 Ordered Dextrose 50% in Water Med 08/21/21 19:00 Ordered 50 ml IVPUSH ASDIRECTED PRN Enoxaparin [Lovenox] Med 08/21/21 19:15 Ordered 40 mg SUBCUT Q24H Glucagon,Human Recombinant [GlucaGen] Med 08/21/21 19:00 Ordered 1 mg IM ASDIRECTED PRN HYDROmorphone [Dilaudid] Med 08/21/21 18:58 Ordered 1 mg IVPUSH Q2H PRN Insulin Aspart [NovoLOG] Med 08/21/21 19:15 Ordered See Protocol SUBCUT Q6H Insulin Glarg,Human.Rec.Analog [LantUS Solostar] Med 08/21/21 21:00 Ordered 5 units SUBCUT BEDTIME Ondansetron [Zofran] Med 08/21/21 19:03 Ordered 4 mg IVPUSH Q4H PRN Pantoprazole [ProTONIX] Med 08/21/21 19:00 Ordered 40 mg IVPUSH Q24H Sodium Chloride 0.9% [Normal Saline] 1,000 ml Med 08/21/21 18:57 Ordered IV .Bolus Sodium Chloride 0.9% [Normal Saline] 1,000 ml Med 08/21/21 19:00 Ordered IV ASDIRECTED Sodium Chloride 0.9% [Normal Saline] 1,000 ml Med 08/21/21 18:42 Active IV STAT Sodium Chloride 0.9% [Saline Flush] Med 08/21/21 15:47 Active 10 ml FLUSH ASDIRECTED PRN Sodium Chloride 0.9% [Saline Flush] Med 08/21/21 15:47 Active 2.5 ml FLUSH ASDIRECTED PRN Saline Lock Insert [OM.PC] Stat Oth 08/21/21 15:47 Ordered Sequential Compression Device [OM.PC] Per Unit Routine Oth 08/21/21 19:03 Ordered Resuscitation Status Routine Resus Stat 08/21/21 19:03 Ordered Medication Orders Dextrose/Water (50% Dextrose In Water 50 Ml Syringe) 50 ml IVPUSH ASDIRECTED PRN PRN Reason: Hypoglycemia Enoxaparin Sodium (Enoxaparin 40 Mg/0.4 Ml Syringe) 40 mg SUBCUT Q24H JEANIE Glucagon (Glucagon,Human Recombinant 1 Mg Vial) 1 mg IM ASDIRECTED PRN PRN Reason: Hypoglycemia Hydromorphone HCl (Hydromorphone 2 Mg/Ml Syringe) 1 mg IVPUSH Q2H PRN PRN Reason: Pain Sodium Chloride (Normal Saline) 1,000 mls @ 999 mls/hr IV STAT ONE Stop: 08/21/21 19:42 Last Admin: 08/21/21 19:11 Dose: 999 mls/hr Documented by: SARAVANANUALAlyssia Sodium Chloride (Normal Saline) 1,000 mls @ 999 mls/hr IV .Bolus ONE Stop: 08/21/21 19:57 Sodium Chloride (Normal Saline) 1,000 mls @ 200 mls/hr IV ASDIRECTED JEANIE Insulin Aspart (Insulin Aspart 100 Units/Ml 3 Ml Pen) 0 unit SUBCUT Q6H JEANIE; Protocol Insulin Glargine (Insulin Glargine,Human Rec. Analog 100 Units/Ml 3 Ml Pen) 5 units SUBCUT BEDTIME JEANIE Ondansetron HCl (Ondansetron 4 Mg/2 Ml Sdv) 4 mg IVPUSH Q4H PRN PRN Reason: Nausea Pantoprazole Sodium (Pantoprazole 40 Mg/10 Ml Syringe) 40 mg IVPUSH Q24H JEANIE Sodium Chloride (Sodium Chloride 0.9% 10 Ml Syringe) 10 ml FLUSH ASDIRECTED PRN PRN Reason: Keep Vein Open Last Admin: 08/21/21 16:32 Dose: 10 ml Documented by: ELLI Sodium Chloride (Sodium Chloride 0.9% 2.5 Ml Syringe) 2.5 ml FLUSH ASDIRECTED PRN PRN Reason: Keep Vein Open Last Admin: 08/21/21 16:32 Dose: 2.5 ml Documented by: ELLI Assessment/Plan Comment:: 46 yo male admitted for acute pancreatitis. We will hydrate well with IV flu ids, give bowel rest and pain control. Will order ultrasound of the abdomen
[2021-08-21] MEDS: HYDROmorphone 2 MG/ML Syringe IVPUSH PRN ×2 (19:50→22:23)
[2021-08-21] MEDS: Pantoprazole 40 MG/10 ML Syringe IVPUSH SCH (20:47)
[2021-08-21] MEDS ORDERED: Insulin Glargine,Human Rec. Analog 100 Units/ML 3 ML Pen SUBCUT SCH (21:00)
[2021-08-21] MEDS: Ondansetron 4 MG/2 ML SDV IVPUSH PRN (22:22)
[2021-08-21] MEDS: Insulin Glargine,Human Rec. Analog 100 Units/ML 3 ML Pen SUBCUT SCH (22:25)
[2021-08-21] MEDS: Insulin Aspart 100 Units/ML 3 ML Pen SUBCUT SCH (22:27)
[2021-08-22] MEDS: HYDROmorphone 2 MG/ML Syringe IVPUSH PRN ×3 (01:07→06:19)
[2021-08-22] MEDS: Insulin Aspart 100 Units/ML 3 ML Pen SUBCUT SCH ×4 (01:07→18:22)
[2021-08-22] MEDS: Sodium Chloride 0.9% 1,000 ML IV SCH ×3 (03:49→16:56)
[2021-08-22 07:08] LABS: BLOOD UREA NITROGEN,BUN 18 mg/dL (7.0-18.0); CARBON DIOXIDE,CO2 26.4 mmol/L (21.0-32.0); CHLORIDE,CL 104 mmol/L (98-107); GLUCOSE RANDOM 270 mg/dL (74-106); POTASSIUM,K 4.2 mmol/L (3.5-5.1); SODIUM,NA 141 mmol/L (136-148)
[2021-08-22] MEDS: Enoxaparin 40 MG/0.4 ML Syringe SUBCUT SCH ×2 (08:46→21:09)
--- NOTE | 2021-08-22 09:28 | US ---
INDICATION: Pancreatitis. TECHNIQUE: Ultrasound abdomen limited. Sonographic images of the right upper quadrant were obtained using kraus-scale and color Doppler images. COMPARISON: Well I think we. FINDINGS: Liver: Normal in size and echotexture. No suspicious masses. No intrahepatic biliary dilatation. Gallbladder: Few tiny stones present. Normal wall thickness. No pericholecystic fluid. Common bile duct: Common bowel duct is not distinctly seen. There are no signs of biliary dilatation. Pancreas: Relatively hyperechoic parenchyma. Otherwise unremarkable. Right kidney: Normal in size. Normal echotexture and cortex. No suspicious masses, stones, or hydronephrosis. Vasculature: Proximal abdominal aorta and IVC are unremarkable. IMPRESSION: Few tiny gallbladder stones. No other acute or significant finding. Dictated by Florin Giraldo MD @ 08/22/2021 9:26:49 AM (Electronically Signed)
--- NOTE | 2021-08-22 14:21 | MR ---
INDICATION: Pancreatitis. COMPARISON: Abdominal ultrasound dated [address] scan of the abdomen and pelvis dated 21 August 2021. TECHNIQUE: MRCP with heavily T2 weighted 2D and 3D MRCP images. Axial T1 in- and out of phase and T2 weighted images also performed. No gadolinium administered. FINDINGS: Moderate diffuse fatty infiltration of the liver. No focal abnormalities identified in the visualized portions of the liver, spleen, adrenal glands, and kidneys. No hydronephrosis. Mild edema in the pancreas. The pancreas is otherwise unremarkable. Moderate amount of peripancreatic edema extending down the pericolic gutters. Small gallstones in an otherwise normal-appearing gallbladder. No intra or extrahepatic bile duct dilation with the common bile duct measuring 4 mm. No filling defects in the biliary system. Normal size of the main pancreatic duct. IMPRESSION: 1. Acute pancreatitis. 2. No bile duct dilation. No choledocholithiasis. Normal size of the main pancreatic duct. 3. Small gallstones in an otherwise normal-appearing gallbladder. 4. Moderate diffuse fatty infiltration of the liver. Dictated by George Currie MD @ 08/22/2021 2:18:34 PM (Electronically Signed)
--- NOTE | 2021-08-22 16:17 | PCM.CONS ---
H&P History of Present Illness - General Date of Service: 08/22/21 Admit Problem/Dx: Admission Diagnosis/Problem Admission Diagnosis/Problem Pancreatitis Source of Information: Patient History Limitations: Reports: No Limitations - History of Present Illness Initial Comments - Free Text/Narative: Patient is a 46 year old male with morbid obesity, asthma, uncontrolled type II diabetes and HTN who presents with acute pancreatitis. He developed abdominal pain, nausea and malaise yesterday. He had never had these symptoms before. He presented to the ER. He had a CT scan that showed acute pancreatitis associated with edema round the duodenum and pericolic gutters. His lipase was 9000, bilirubin 1.7 and AST, ALT in the 600s and ALK Phos at 150s. He was admitted to the medicine team and given IVF, made NPO and had pain medications given. He feels better today. US of the RUQ shows small gallstones. His LFTs have improved and bilirubin is now 0.6. He had an MR of the abdomen performed that showed mild pancreatic inflammation and fluid around the jeanette-pancreatic area. There are small gallstones in the gallbladder but no signs of choledocholithiasis or acute cholecystitis. His vitals have been stable. Abdominal Pain Score (Numeric/FACES): 4 - Related Data Allergies/Adverse Reactions: Allergies Allergy/AdvReac Type Severity Reaction Status Date / Time house dust Allergy Other Verified 08/21/21 21:33 mold Allergy Shortness Verified 08/21/21 21:33 of Breath dust Allergy Shortness Uncoded 08/21/21 16:00 of Breath Home Medications: Home Meds Lisinopril 20 mg PO DAILY 07/25/15 [History] glipiZIDE [Glipizide ER] 10 mg PO DAILY 10/20/15 [History] Aspirin [Adult Low Dose Aspirin EC] 81 mg PO DAILY 06/24/19 [History] PARoxetine HCl [Paxil] 40 mg PO DAILY 06/24/19 [History] Acetaminophen [Tylenol] 650 mg PO Q4H PRN tablet 08/21/20 [Rx] Insulin Glargine,Hum.Rec.Anlog [Lantus Solostar] 86 units SQ BEDTIME 08/21/21 [History] Albuterol [Ventolin HFA] 2 inh IH Q4H PRN 08/22/21 [History] Multivitamin 1 tab PO DAILY 08/22/21 [History] Rosuvastatin [Crestor] 20 mg PO BEDTIME 08/22/21 [History] metFORMIN HCl [Metformin HCl ER] 1,000 unit PO BIDMEALS 08/22/21 [History] Past Medical History HEENT History: Reports: Other (See Below) Other HEENT History: Wears eyeglasses Cardiovascular History: Reports: Angina, High Cholesterol, Hypertension Respiratory History: Reports: Asthma Other Respiratory History: seasonal asthma Gastrointestinal History: Reports: GERD, Other (See Below) Other Gastrointestinal History: occasional heartburn, Genitourinary History: Reports: None Musculoskeletal History: Reports: Arthritis Other Musculoskeletal History: arthritis in rt knee Neurological History: Reports: Concussion Psychiatric History: Reports: Anxiety, Depression Endocrine/Metabolic History: Reports: Diabetes, Type II, Obesity/BMI 30+ Hematologic History: Reports: Blood Transfusion(s) Immunologic History: Reports: None Oncologic (Cancer) History: Reports: None Dermatologic History: Reports: None - Infectious Disease History Infectious Disease History: Reports: Chicken Pox, Influenza - Past Surgical History Head Surgeries/Procedures: Reports: None HEENT Surgical History: Reports: Adenoidectomy, Tonsillectomy GI Surgical History: Reports: Hernia, Abdominal, Hernia, Inguinal, Hernia Repair/Other, Other (See Below) (bowel resection for strangulated hernia) Musculoskeletal Surgical History: Reports: None Social & Family History - Family History Family Medical History: No Pertinent Family History HEENT: Reports: Cataract Cardiac: Reports: Heart Failure, Pacemaker Respiratory: Reports: Asthma, Other (See Below) Other Respiratory Family Hisory: Pneumonia GI: Reports: Diverticulitis : Reports: Renal Calculus Musculoskeletal: Reports: Arthritis Neurological: Reports: Migraines Psychiatric: Reports: Depression Endocrine/Metabolic: Reports: Diabetes, type II, Obesity/MBI 30+ Oncologic: Reports: Prostate, Renal - Tobacco Use Tobacco Use Status *Q: Never Tobacco User Second Hand Smoke Exposure: No - Caffeine Use Caffeine Use: Reports: Coffee - Alcohol Use Days Per Week of Alcohol Use: 1 Number of Drinks Per Day: 0 Total Drinks Per Week: 0 - Recreational Drug Use Recreational Drug Use: No - Living Situation & Occupation Living situation: Reports: Single Occupation: Employed H&P Review of Systems - Review of Systems: Review Of Systems: Comprehensive ROS is negative, except as noted in HPI. Exam - Exam Exam: See Below - Vital Signs Vital Signs: Last Vital Signs Temp 36.5 C 08/22/21 15:52 Pulse 103 H 08/22/21 15:52 Resp 20 08/22/21 15:52 BP 139/76 08/22/21 15:52 Pulse Ox 90 L 08/22/21 15:52 Weight: 141.521 kg - Exam General: Alert, Oriented, Cooperative HEENT: Conjunctiva Clear Lungs: Clear to Auscultation, Normal Respiratory Effort Cardiovascular: Regular Rate, Regular Rhythm GI/Abdominal Exam: Soft, No Abnormal Bruit, Pelvis Stable, Tender (mild tenderness in epigastric area ), Other (well healed midline incision ) - Patient Data Lab Results Last 24 hrs: Laboratory Results - last 24 hr 08/21/21 08/21/21 08/21/21 Range/Units 16:15 16:15 16:15 WBC 10.80 (4.0-11.0) K/uL RBC 5.12 (4.50-5.90) M/uL Hgb 15.0 (13.0-17.0) g/dL Hct 45.9 (38.0-50.0) % MCV 89.6 (80.0-98.0) fL MCH 29.3 (27.0-32.0) pg MCHC 32.7 (31.0-37.0) g/dL RDW Std Deviation 44.8 (28.0-62.0) fl RDW Coeff of [place] 14 (11.0-15.0) % Plt Count 190 (150-400) K/uL MPV 9.80 (7.40-12.00) fL Neut % (Auto) 78.0 (48.0-80.0) % Lymph % (Auto) 11.3 L (16.0-40.0) % [place] % (Auto) 10.5 (0.0-15.0) % Eos % (Auto) 0.1 (0.0-7.0) % Baso % (Auto) 0.1 (0.0-1.5) % Neut # (Auto) 8.4 H (1.4-5.7) K/uL Lymph # (Auto) 1.2 (0.6-2.4) K/uL [place] # (Auto) 1.1 H (0.0-0.8) K/uL Eos # (Auto) 0.0 (0.0-0.7) K/uL Baso # (Auto) 0.0 (0.0-0.1) K/uL Nucleated RBC % 0.0 /100WBC Nucleated RBCs # 0 K/uL Sodium 139 (136-148) mmol/L Potassium 3.7 (3.5-5.1) mmol/L Chloride 100 (98-107) mmol/L Carbon Dioxide 27.1 (21.0-32.0) mmol/L BUN 17 (7.0-18.0) mg/dL Creatinine 0.9 (0.8-1.3) mg/dL Est Cr Clr Drug Dosing 101.47 mL/min Estimated GFR (MDRD) > 60.0 ml/min Glucose 350 H (74-106) mg/dL POC Glucose (70-99) mg/dL Calcium 9.1 (8.5-10.1) mg/dL Total Bilirubin 1.7 H (0.2-1.0) mg/dL AST 683 H (15-37) IU/L ALT 698 H (14-63) IU/L Alkaline Phosphatase 154 H (46-116) U/L Troponin I < 0.050 (0.000-0.056) ng/mL Total Protein 7.3 (6.4-8.2) g/dL Albumin 3.6 (3.4-5.0) g/dL Globulin 3.7 (2.6-4.0) g/dL Albumin/Globulin Ratio 1.0 (0.9-1.6) Triglycerides (0-200) mg/dL Cholesterol (50-200) mg/dL HDL Cholesterol (40-60) mg/dL Cholesterol/HDL Ratio (3.3-6.0) Lipase 9178 H (73-393) U/L Urine Color Urine Appearance Urine pH (5.0-8.0) Ur Specific [place] (1.001-1.035) Urine Protein (NEGATIVE) mg/dL Urine Glucose (UA) (NEGATIVE) mg/dL Urine Ketones (NEGATIVE) mg/dL Urine Occult Blood (NEGATIVE) Urine Nitrite (NEGATIVE) Urine Bilirubin (NEGATIVE) Urine Urobilinogen (<2.0) EU/dL Ur Leukocyte Esterase (NEGATIVE) Urine RBC (0-2/HPF) Urine WBC (0-5/HPF) Ur Epithelial Cells (NONE-FEW) Urine Bacteria (NEGATIVE) Influenza Type A RNA (NEGATIVE) Influenza Type B RNA (NEGATIVE) SARS-CoV-2 RNA (ANGIE) (NEGATIVE) 08/21/21 08/21/21 08/21/21 Range/Units 16:20 16:30 21:30 WBC (4.0-11.0) K/uL RBC (4.50-5.90) M/uL Hgb (13.0-17.0) g/dL Hct (38.0-50.0) % MCV (80.0-98.0) fL MCH (27.0-32.0) pg MCHC (31.0-37.0) g/dL RDW Std Deviation (28.0-62.0) fl RDW Coeff of [place] (11.0-15.0) % Plt Count (150-400) K/uL MPV (7.40-12.00) fL Neut % (Auto) (48.0-80.0) % Lymph % (Auto) (16.0-40.0) % [place] % (Auto) (0.0-15.0) % Eos % (Auto) (0.0-7.0) % Baso % (Auto) (0.0-1.5) % Neut # (Auto) (1.4-5.7) K/uL Lymph # (Auto) (0.6-2.4) K/uL [place] # (Auto) (0.0-0.8) K/uL Eos # (Auto) (0.0-0.7) K/uL Baso # (Auto) (0.0-0.1) K/uL Nucleated RBC % /100WBC Nucleated RBCs # K/uL Sodium (136-148) mmol/L Potassium (3.5-5.1) mmol/L Chloride (98-107) mmol/L Carbon Dioxide (21.0-32.0) mmol/L BUN (7.0-18.0) mg/dL Creatinine (0.8-1.3) mg/dL Est Cr Clr Drug Dosing mL/min Estimated GFR (MDRD) ml/min Glucose (74-106) mg/dL POC Glucose 323 H (70-99) mg/dL Calcium (8.5-10.1) mg/dL Total Bilirubin (0.2-1.0) mg/dL AST (15-37) IU/L ALT (14-63) IU/L Alkaline Phosphatase (46-116) U/L Troponin I (0.000-0.056) ng/mL Total Protein (6.4-8.2) g/dL Albumin (3.4-5.0) g/dL Globulin (2.6-4.0) g/dL Albumin/Globulin Ratio (0.9-1.6) Triglycerides (0-200) mg/dL Cholesterol (50-200) mg/dL HDL Cholesterol (40-60) mg/dL Cholesterol/HDL Ratio (3.3-6.0) Lipase (73-393) U/L Urine Color YELLOW Urine Appearance CLEAR Urine pH 5.5 (5.0-8.0) Ur Specific [place] 1.020 (1.001-1.035) Urine Protein NEGATIVE (NEGATIVE) mg/dL Urine Glucose (UA) >=1000 (NEGATIVE) mg/dL Urine Ketones TRACE H (NEGATIVE) mg/dL Urine Occult Blood MODERATE H (NEGATIVE) Urine Nitrite NEGATIVE (NEGATIVE) Urine Bilirubin NEGATIVE (NEGATIVE) Urine Urobilinogen 0.2 (<2.0) EU/dL Ur Leukocyte Esterase NEGATIVE (NEGATIVE) Urine RBC 0-2 (0-2/HPF) Urine WBC NONE SEEN (0-5/HPF) Ur Epithelial Cells NOT SEEN (NONE-FEW) Urine Bacteria NOT SEEN (NEGATIVE) Influenza Type A RNA NEGATIVE (NEGATIVE) Influenza Type B RNA NEGATIVE (NEGATIVE) SARS-CoV-2 RNA (ANGIE) NEGATIVE (NEGATIVE) 08/22/21 08/22/21 08/22/21 Range/Units 00:57 05:37 05:37 WBC 4.92 (4.0-11.0) K/uL RBC 5.03 (4.50-5.90) M/uL Hgb 14.5 (13.0-17.0) g/dL Hct 45.3 (38.0-50.0) % MCV 90.1 (80.0-98.0) fL MCH 28.8 (27.0-32.0) pg MCHC 32.0 (31.0-37.0) g/dL RDW Std Deviation 46.3 (28.0-62.0) fl RDW Coeff of [place] 14 (11.0-15.0) % Plt Count 192 (150-400) K/uL MPV 9.90 (7.40-12.00) fL Neut % (Auto) 73.6 (48.0-80.0) % Lymph % (Auto) 18.7 (16.0-40.0) % [place] % (Auto) 7.5 (0.0-15.0) % Eos % (Auto) 0.0 (0.0-7.0) % Baso % (Auto) 0.2 (0.0-1.5) % Neut # (Auto) 3.6 (1.4-5.7) K/uL Lymph # (Auto) 0.9 (0.6-2.4) K/uL [place] # (Auto) 0.4 (0.0-0.8) K/uL Eos # (Auto) 0.0 (0.0-0.7) K/uL Baso # (Auto) 0.0 (0.0-0.1) K/uL Nucleated RBC % 0.0 /100WBC Nucleated RBCs # 0 K/uL Sodium 141 (136-148) mmol/L Potassium 4.2 (3.5-5.1) mmol/L Chloride 104 (98-107) mmol/L Carbon Dioxide 26.4 (21.0-32.0) mmol/L BUN 18 (7.0-18.0) mg/dL Creatinine 0.9 (0.8-1.3) mg/dL Est Cr Clr Drug Dosing 101.47 mL/min Estimated GFR (MDRD) > 60.0 ml/min Glucose 270 H (74-106) mg/dL POC Glucose 287 H (70-99) mg/dL Calcium 8.2 L (8.5-10.1) mg/dL Total Bilirubin 0.6 (0.2-1.0) mg/dL AST 221 H (15-37) IU/L ALT 502 H (14-63) IU/L Alkaline Phosphatase 124 H (46-116) U/L Troponin I (0.000-0.056) ng/mL Total Protein 6.6 (6.4-8.2) g/dL Albumin 3.1 L (3.4-5.0) g/dL Globulin 3.5 (2.6-4.0) g/dL Albumin/Globulin Ratio 0.9 (0.9-1.6) Triglycerides 467 H (0-200) mg/dL Cholesterol 178 (50-200) mg/dL HDL Cholesterol 37 L (40-60) mg/dL Cholesterol/HDL Ratio 4.8 (3.3-6.0) Lipase (73-393) U/L Urine Color Urine Appearance Urine pH (5.0-8.0) Ur Specific [place] (1.001-1.035) Urine Protein (NEGATIVE) mg/dL Urine Glucose (UA) (NEGATIVE) mg/dL Urine Ketones (NEGATIVE) mg/dL Urine Occult Blood (NEGATIVE) Urine Nitrite (NEGATIVE) Urine Bilirubin (NEGATIVE) Urine Urobilinogen (<2.0) EU/dL Ur Leukocyte Esterase (NEGATIVE) Urine RBC (0-2/HPF) Urine WBC (0-5/HPF) Ur Epithelial Cells (NONE-FEW) Urine Bacteria (NEGATIVE) Influenza Type A RNA (NEGATIVE) Influenza Type B RNA (NEGATIVE) SARS-CoV-2 RNA (ANGIE) (NEGATIVE) 08/22/21 08/22/21 Range/Units 06:06 11:31 WBC (4.0-11.0) K/uL RBC (4.50-5.90) M/uL Hgb (13.0-17.0) g/dL Hct (38.0-50.0) % MCV (80.0-98.0) fL MCH (27.0-32.0) pg MCHC (31.0-37.0) g/dL RDW Std Deviation (28.0-62.0) fl RDW Coeff of [place] (11.0-15.0) % Plt Count (150-400) K/uL MPV (7.40-12.00) fL Neut % (Auto) (48.0-80.0) % Lymph % (Auto) (16.0-40.0) % [place] % (Auto) (0.0-15.0) % Eos % (Auto) (0.0-7.0) % Baso % (Auto) (0.0-1.5) % Neut # (Auto) (1.4-5.7) K/uL Lymph # (Auto) (0.6-2.4) K/uL [place] # (Auto) (0.0-0.8) K/uL Eos # (Auto) (0.0-0.7) K/uL Baso # (Auto) (0.0-0.1) K/uL Nucleated RBC % /100WBC Nucleated RBCs # K/uL Sodium (136-148) mmol/L Potassium (3.5-5.1) mmol/L Chloride (98-107) mmol/L Carbon Dioxide (21.0-32.0) mmol/L BUN (7.0-18.0) mg/dL Creatinine (0.8-1.3) mg/dL Est Cr Clr Drug Dosing mL/min Estimated GFR (MDRD) ml/min Glucose (74-106) mg/dL POC Glucose 259 H 219 H (70-99) mg/dL Calcium (8.5-10.1) mg/dL Total Bilirubin (0.2-1.0) mg/dL AST (15-37) IU/L ALT (14-63) IU/L Alkaline Phosphatase (46-116) U/L Troponin I (0.000-0.056) ng/mL Total Protein (6.4-8.2) g/dL Albumin (3.4-5.0) g/dL Globulin (2.6-4.0) g/dL Albumin/Globulin Ratio (0.9-1.6) Triglycerides (0-200) mg/dL Cholesterol (50-200) mg/dL HDL Cholesterol (40-60) mg/dL Cholesterol/HDL Ratio (3.3-6.0) Lipase (73-393) U/L Urine Color Urine Appearance Urine pH (5.0-8.0) Ur Specific [place] (1.001-1.035) Urine Protein (NEGATIVE) mg/dL Urine Glucose (UA) (NEGATIVE) mg/dL Urine Ketones (NEGATIVE) mg/dL Urine Occult Blood (NEGATIVE) Urine Nitrite (NEGATIVE) Urine Bilirubin (NEGATIVE) Urine Urobilinogen (<2.0) EU/dL Ur Leukocyte Esterase (NEGATIVE) Urine RBC (0-2/HPF) Urine WBC (0-5/HPF) Ur Epithelial Cells (NONE-FEW) Urine Bacteria (NEGATIVE) Influenza Type A RNA (NEGATIVE) Influenza Type B RNA (NEGATIVE) SARS-CoV-2 RNA (ANGIE) (NEGATIVE) Result Diagrams: 08/22/21 05:37 08/22/21 05:37 Sepsis Event Note - Evaluation Sepsis Screening Result: No Definite Risk - Focused Exam Vital Signs: Vital Signs Temp Pulse Resp BP Pulse Ox 08/22/21 15:52 36.5 C 103 H 20 139/76 90 L 08/22/21 12:00 35.6 C L 99 20 127/81 93 L 08/22/21 08:12 36.6 C 101 H 20 138/74 94 L Consult PN Assessment/Plan Procedures: Procedures ABSCESS DRAINAGE UNDER X-RAY (05/07/16) ASSAY OF LACTIC ACID (06/08/19) ASSAY OF NATRIURETIC PEPTIDE (12/23/20) ASSAY OF TROPONIN QUANT (02/04/17) ASSAY THYROID STIM HORMONE (06/14/20) BLOOD CULTURE FOR BACTERIA (06/08/19) C-REACTIVE PROTEIN (05/01/16) COMPLETE CBC W/AUTO DIFF WBC (08/19/20) COMPREHEN METABOLIC PANEL (07/14/21) CT ABD & PELV 1/> REGNS (05/01/15) CT ABD & PELV W/CONTRAST (06/08/19) CT ABD & PELVIS W/O CONTRAST (05/06/16) CT ANGIOGRAPHY CHEST (02/04/17) CULTURE AEROBIC IDENTIFY (06/12/19) CULTURE OTHR SPECIMN AEROBIC (06/12/19) ECHO GUIDE FOR BIOPSY (05/07/16) ELECTRICAL STIMULATION (08/13/21) ELECTROCARDIOGRAM TRACING (02/04/17) EMERGENCY DEPT VISIT (06/24/19) EMERGENCY DEPT VISIT (06/08/19) EMERGENCY DEPT VISIT (02/04/17) EMERGENCY DEPT VISIT (10/19/15) EXTREMITY STUDY (12/23/20) GLYCOSYLATED HEMOGLOBIN TEST (07/14/21) HEPATITIS C AB TEST (06/10/18) HIV-1 AG W/HIV-1 & -2 AB AG IA (06/10/18) HYDRATE IV INFUSION ADD-ON (06/08/19) LIPID PANEL (07/14/21) MANUAL THERAPY 1/> REGIONS (08/13/21) MECHANICAL TRACTION THERAPY (08/13/21) METABOLIC PANEL TOTAL CA (05/03/15) MICROBE SUSCEPTIBLE ANURADHA (06/12/19) NEG PRESS WOUND TX </=50 CM (08/10/19) OFFICE O/P EST SF 10-19 MIN (10/21/15) PROTHROMBIN TIME (02/04/17) PT EVAL LOW COMPLEX 20 MIN (07/11/21) PT EVALUATION (11/13/15) ROUTINE VENIPUNCTURE (07/14/21) SMEAR GRAM STAIN (06/12/19) THER/PROPH/DIAG IV INF INIT (06/08/19) THERAPEUTIC EXERCISES (08/13/21) UR ALBUMIN SEMIQUANTITATIVE (07/14/21) URINALYSIS AUTO W/O SCOPE (06/08/19) URINALYSIS AUTO W/SCOPE (02/04/17) X-RAY EXAM CHEST 1 VIEW (08/19/20) X-RAY EXAM OF KNEE 3 (01/25/15) (1) Acute pancreatitis SNOMED Code(s): 235934219 Code(s): K85.90 - ACUTE PANCREATITIS WITHOUT NECROSIS OR INFECTION, UNSP Current Visit: Yes Qualifiers: Pancreatitis type: unspecified pancreatitis type Acute pancreatitis complication: unspecified Qualified Code(s): K85.90 - Acute pancreatitis without necrosis or infection, unspecified Problem List Initiated/Reviewed/Updated: Yes My Orders Last 24 Hours: My Active Orders 08/22/21 05:39 GLYCOSYLATED HEMOGLOBIN,HGBA1C [CHEM] Routine Plan: The patient likely has gallstone pancreatitis. I discussed the pathophysiology of this disease process with him. We discussed the need for a cholecystectomy. However, he has a complex past surgical history. He has had 6 surgeries for a complex abdominal wall hernia and has had complications after surgery. Given this, his uncontrolled diabetes and morbid obesity, he would be a better can didate for surgery in [place] with his general surgeon there. He expressed interest in seeing him as opposed to performing surgery here as well. I would continue to treat his pancreatitis with conservative management. Ok to advance diet to clears today and continue to advance as tolerated in the morning. I will help coordinate his outpatient follow up with his surgeon in [place] after discharge. Will sign off at this time. Call with questions or concerns.
[2021-08-22 16:37] LABS: HEMOGLOBIN A1C 10.2 %
--- NOTE | 2021-08-22 16:39 | PCM.PN ---
- General Info Date of Service: 08/22/21 Subjective Update: The patient is a 46-year-old obese male, who has a significant past medical history of hypertension, hyperlipidemia, angina, asthma, GERD, anxiety and depression, who was admitted to the medical floor due to acute pancreatitis. For his pancreatitis he is being treated with Dilaudid 1 mg per IV route, is on a nothing per oral diet, and has had multiple imaging modalities completed. He had an ultrasound of the abdomen which showed a few tiny gallstones and subsequently had an MRI of the abdomen without contrast which showed small gallstones in the gallbladder, mild edema of the pancreas, and diffuse fatty infiltration of the liver. He was seen by hospital surgeon Dr. Navarro who feels he can progress to a clear liquid diet and recommended an appointment in [place] to see a specialist upon discharge. We will continue to treat this patient unt il ready for discharge. - Review of Systems General: Denies: Weakness, Fatigue HEENT: Denies: Headaches, Sore Throat Pulmonary: Denies: Shortness of Breath, Cough Cardiovascular: Denies: Chest Pain, Palpitations Gastrointestinal: Reports: Abdominal Pain. Denies: Nausea, Vomiting Genitourinary: Denies: Dysuria - Patient Data Vitals - Most Recent: Last Vital Signs Temp 97.7 F 08/22/21 15:52 Pulse 103 H 08/22/21 15:52 Resp 20 08/22/21 15:52 BP 139/76 08/22/21 15:52 Pulse Ox 90 L 08/22/21 15:52 Weight - Most Recent: 312 lb I&O - Last 24 Hours: Intake & Output 08/22/21 08/22/21 08/22/21 06:59 14:59 22:59 Intake Total 0 Output Total 500 Balance -500 Lab Results Last 24 Hours: Laboratory Results - last 24 hr 08/21/21 08/21/21 08/21/21 Range/Units 16:15 16:15 16:15 WBC 10.80 (4.0-11.0) K/uL RBC 5.12 (4.50-5.90) M/uL Hgb 15.0 (13.0-17.0) g/dL Hct 45.9 (38.0-50.0) % MCV 89.6 (80.0-98.0) fL MCH 29.3 (27.0-32.0) pg MCHC 32.7 (31.0-37.0) g/dL RDW Std Deviation 44.8 (28.0-62.0) fl RDW Coeff of Aislinn 14 (11.0-15.0) % Plt Count 190 (150-400) K/uL MPV 9.80 (7.40-12.00) fL Neut % (Auto) 78.0 (48.0-80.0) % Lymph % (Auto) 11.3 L (16.0-40.0) % Overton % (Auto) 10.5 (0.0-15.0) % Eos % (Auto) 0.1 (0.0-7.0) % Baso % (Auto) 0.1 (0.0-1.5) % Neut # (Auto) 8.4 H (1.4-5.7) K/uL Lymph # (Auto) 1.2 (0.6-2.4) K/uL Overton # (Auto) 1.1 H (0.0-0.8) K/uL Eos # (Auto) 0.0 (0.0-0.7) K/uL Baso # (Auto) 0.0 (0.0-0.1) K/uL Nucleated RBC % 0.0 /100WBC Nucleated RBCs # 0 K/uL Sodium 139 (136-148) mmol/L Potassium 3.7 (3.5-5.1) mmol/L Chloride 100 (98-107) mmol/L Carbon Dioxide 27.1 (21.0-32.0) mmol/L BUN 17 (7.0-18.0) mg/dL Creatinine 0.9 (0.8-1.3) mg/dL Est Cr Clr Drug Dosing 101.47 mL/min Estimated GFR (MDRD) > 60.0 ml/min Glucose 350 H (74-106) mg/dL POC Glucose (70-99) mg/dL Calcium 9.1 (8.5-10.1) mg/dL Total Bilirubin 1.7 H (0.2-1.0) mg/dL AST 683 H (15-37) IU/L ALT 698 H (14-63) IU/L Alkaline Phosphatase 154 H (46-116) U/L Troponin I < 0.050 (0.000-0.056) ng/mL Total Protein 7.3 (6.4-8.2) g/dL Albumin 3.6 (3.4-5.0) g/dL Globulin 3.7 (2.6-4.0) g/dL Albumin/Globulin Ratio 1.0 (0.9-1.6) Triglycerides (0-200) mg/dL Cholesterol (50-200) mg/dL HDL Cholesterol (40-60) mg/dL Cholesterol/HDL Ratio (3.3-6.0) Lipase 9178 H (73-393) U/L Urine Color Urine Appearance Urine pH (5.0-8.0) Ur Specific Simms (1.001-1.035) Urine Protein (NEGATIVE) mg/dL Urine Glucose (UA) (NEGATIVE) mg/dL Urine Ketones (NEGATIVE) mg/dL Urine Occult Blood (NEGATIVE) Urine Nitrite (NEGATIVE) Urine Bilirubin (NEGATIVE) Urine Urobilinogen (<2.0) EU/dL Ur Leukocyte Esterase (NEGATIVE) Urine RBC (0-2/HPF) Urine WBC (0-5/HPF) Ur Epithelial Cells (NONE-FEW) Urine Bacteria (NEGATIVE) Influenza Type A RNA (NEGATIVE) Influenza Type B RNA (NEGATIVE) SARS-CoV-2 RNA (ANGIE) (NEGATIVE) 08/21/21 08/21/21 08/21/21 Range/Units 16:20 16:30 21:30 WBC (4.0-11.0) K/uL RBC (4.50-5.90) M/uL Hgb (13.0-17.0) g/dL Hct (38.0-50.0) % MCV (80.0-98.0) fL MCH (27.0-32.0) pg MCHC (31.0-37.0) g/dL RDW Std Deviation (28.0-62.0) fl RDW Coeff of Aislinn (11.0-15.0) % Plt Count (150-400) K/uL MPV (7.40-12.00) fL Neut % (Auto) (48.0-80.0) % Lymph % (Auto) (16.0-40.0) % Overton % (Auto) (0.0-15.0) % Eos % (Auto) (0.0-7.0) % Baso % (Auto) (0.0-1.5) % Neut # (Auto) (1.4-5.7) K/uL Lymph # (Auto) (0.6-2.4) K/uL Overton # (Auto) (0.0-0.8) K/uL Eos # (Auto) (0.0-0.7) K/uL Baso # (Auto) (0.0-0.1) K/uL Nucleated RBC % /100WBC Nucleated RBCs # K/uL Sodium (136-148) mmol/L Potassium (3.5-5.1) mmol/L Chloride (98-107) mmol/L Carbon Dioxide (21.0-32.0) mmol/L BUN (7.0-18.0) mg/dL Creatinine (0.8-1.3) mg/dL Est Cr Clr Drug Dosing mL/min Estimated GFR (MDRD) ml/min Glucose (74-106) mg/dL POC Glucose 323 H (70-99) mg/dL Calcium (8.5-10.1) mg/dL Total Bilirubin (0.2-1.0) mg/dL AST (15-37) IU/L ALT (14-63) IU/L Alkaline Phosphatase (46-116) U/L Troponin I (0.000-0.056) ng/mL Total Protein (6.4-8.2) g/dL Albumin (3.4-5.0) g/dL Globulin (2.6-4.0) g/dL Albumin/Globulin Ratio (0.9-1.6) Triglycerides (0-200) mg/dL Cholesterol (50-200) mg/dL HDL Cholesterol (40-60) mg/dL Cholesterol/HDL Ratio (3.3-6.0) Lipase (73-393) U/L Urine Color YELLOW Urine Appearance CLEAR Urine pH 5.5 (5.0-8.0) Ur Specific Simms 1.020 (1.001-1.035) Urine Protein NEGATIVE (NEGATIVE) mg/dL Urine Glucose (UA) >=1000 (NEGATIVE) mg/dL Urine Ketones TRACE H (NEGATIVE) mg/dL Urine Occult Blood MODERATE H (NEGATIVE) Urine Nitrite NEGATIVE (NEGATIVE) Urine Bilirubin NEGATIVE (NEGATIVE) Urine Urobilinogen 0.2 (<2.0) EU/dL Ur Leukocyte Esterase NEGATIVE (NEGATIVE) Urine RBC 0-2 (0-2/HPF) Urine WBC NONE SEEN (0-5/HPF) Ur Epithelial Cells NOT SEEN (NONE-FEW) Urine Bacteria NOT SEEN (NEGATIVE) Influenza Type A RNA NEGATIVE (NEGATIVE) Influenza Type B RNA NEGATIVE (NEGATIVE) SARS-CoV-2 RNA (ANGIE) NEGATIVE (NEGATIVE) 08/22/21 08/22/21 08/22/21 Range/Units 00:57 05:37 05:37 WBC 4.92 (4.0-11.0) K/uL RBC 5.03 (4.50-5.90) M/uL Hgb 14.5 (13.0-17.0) g/dL Hct 45.3 (38.0-50.0) % MCV 90.1 (80.0-98.0) fL MCH 28.8 (27.0-32.0) pg MCHC 32.0 (31.0-37.0) g/dL RDW Std Deviation 46.3 (28.0-62.0) fl RDW Coeff of Aislinn 14 (11.0-15.0) % Plt Count 192 (150-400) K/uL MPV 9.90 (7.40-12.00) fL Neut % (Auto) 73.6 (48.0-80.0) % Lymph % (Auto) 18.7 (16.0-40.0) % Overton % (Auto) 7.5 (0.0-15.0) % Eos % (Auto) 0.0 (0.0-7.0) % Baso % (Auto) 0.2 (0.0-1.5) % Neut # (Auto) 3.6 (1.4-5.7) K/uL Lymph # (Auto) 0.9 (0.6-2.4) K/uL Overton # (Auto) 0.4 (0.0-0.8) K/uL Eos # (Auto) 0.0 (0.0-0.7) K/uL Baso # (Auto) 0.0 (0.0-0.1) K/uL Nucleated RBC % 0.0 /100WBC Nucleated RBCs # 0 K/uL Sodium 141 (136-148) mmol/L Potassium 4.2 (3.5-5.1) mmol/L Chloride 104 (98-107) mmol/L Carbon Dioxide 26.4 (21.0-32.0) mmol/L BUN 18 (7.0-18.0) mg/dL Creatinine 0.9 (0.8-1.3) mg/dL Est Cr Clr Drug Dosing 101.47 mL/min Estimated GFR (MDRD) > 60.0 ml/min Glucose 270 H (74-106) mg/dL POC Glucose 287 H (70-99) mg/dL Calcium 8.2 L (8.5-10.1) mg/dL Total Bilirubin 0.6 (0.2-1.0) mg/dL AST 221 H (15-37) IU/L ALT 502 H (14-63) IU/L Alkaline Phosphatase 124 H (46-116) U/L Troponin I (0.000-0.056) ng/mL Total Protein 6.6 (6.4-8.2) g/dL Albumin 3.1 L (3.4-5.0) g/dL Globulin 3.5 (2.6-4.0) g/dL Albumin/Globulin Ratio 0.9 (0.9-1.6) Triglycerides 467 H (0-200) mg/dL Cholesterol 178 (50-200) mg/dL HDL Cholesterol 37 L (40-60) mg/dL Cholesterol/HDL Ratio 4.8 (3.3-6.0) Lipase (73-393) U/L Urine Color Urine Appearance Urine pH (5.0-8.0) Ur Specific Simms (1.001-1.035) Urine Protein (NEGATIVE) mg/dL Urine Glucose (UA) (NEGATIVE) mg/dL Urine Ketones (NEGATIVE) mg/dL Urine Occult Blood (NEGATIVE) Urine Nitrite (NEGATIVE) Urine Bilirubin (NEGATIVE) Urine Urobilinogen (<2.0) EU/dL Ur Leukocyte Esterase (NEGATIVE) Urine RBC (0-2/HPF) Urine WBC (0-5/HPF) Ur Epithelial Cells (NONE-FEW) Urine Bacteria (NEGATIVE) Influenza Type A RNA (NEGATIVE) Influenza Type B RNA (NEGATIVE) SARS-CoV-2 RNA (ANGIE) (NEGATIVE) 08/22/21 08/22/21 Range/Units 06:06 11:31 WBC (4.0-11.0) K/uL RBC (4.50-5.90) M/uL Hgb (13.0-17.0) g/dL Hct (38.0-50.0) % MCV (80.0-98.0) fL MCH (27.0-32.0) pg MCHC (31.0-37.0) g/dL RDW Std Deviation (28.0-62.0) fl RDW Coeff of Aislinn (11.0-15.0) % Plt Count (150-400) K/uL MPV (7.40-12.00) fL Neut % (Auto) (48.0-80.0) % Lymph % (Auto) (16.0-40.0) % Overton % (Auto) (0.0-15.0) % Eos % (Auto) (0.0-7.0) % Baso % (Auto) (0.0-1.5) % Neut # (Auto) (1.4-5.7) K/uL Lymph # (Auto) (0.6-2.4) K/uL Overton # (Auto) (0.0-0.8) K/uL Eos # (Auto) (0.0-0.7) K/uL Baso # (Auto) (0.0-0.1) K/uL Nucleated RBC % /100WBC Nucleated RBCs # K/uL Sodium (136-148) mmol/L Potassium (3.5-5.1) mmol/L Chloride (98-107) mmol/L Carbon Dioxide (21.0-32.0) mmol/L BUN (7.0-18.0) mg/dL Creatinine (0.8-1.3) mg/dL Est Cr Clr Drug Dosing mL/min Estimated GFR (MDRD) ml/min Glucose (74-106) mg/dL POC Glucose 259 H 219 H (70-99) mg/dL Calcium (8.5-10.1) mg/dL Total Bilirubin (0.2-1.0) mg/dL AST (15-37) IU/L ALT (14-63) IU/L Alkaline Phosphatase (46-116) U/L Troponin I (0.000-0.056) ng/mL Total Protein (6.4-8.2) g/dL Albumin (3.4-5.0) g/dL Globulin (2.6-4.0) g/dL Albumin/Globulin Ratio (0.9-1.6) Triglycerides (0-200) mg/dL Cholesterol (50-200) mg/dL HDL Cholesterol (40-60) mg/dL Cholesterol/HDL Ratio (3.3-6.0) Lipase (73-393) U/L Urine Color Urine Appearance Urine pH (5.0-8.0) Ur Specific Simms (1.001-1.035) Urine Protein (NEGATIVE) mg/dL Urine Glucose (UA) (NEGATIVE) mg/dL Urine Ketones (NEGATIVE) mg/dL Urine Occult Blood (NEGATIVE) Urine Nitrite (NEGATIVE) Urine Bilirubin (NEGATIVE) Urine Urobilinogen (<2.0) EU/dL Ur Leukocyte Esterase (NEGATIVE) Urine RBC (0-2/HPF) Urine WBC (0-5/HPF) Ur Epithelial Cells (NONE-FEW) Urine Bacteria (NEGATIVE) Influenza Type A RNA (NEGATIVE) Influenza Type B RNA (NEGATIVE) SARS-CoV-2 RNA (ANGIE) (NEGATIVE) Med Orders - Current: Current Medications Dextrose/Water (50% Dextrose In Water 50 Ml Syringe) 50 ml IVPUSH ASDIRECTED PRN PRN Reason: Hypoglycemia Enoxaparin Sodium (Enoxaparin 40 Mg/0.4 Ml Syringe) 40 mg SUBCUT Q12H [facility] Last Admin: 08/22/21 08:46 Dose: 40 mg Documented by: Glucagon (Glucagon,Human Recombinant 1 Mg Vial) 1 mg IM ASDIRECTED PRN PRN Reason: Hypoglycemia Hydromorphone HCl (Hydromorphone 1 Mg/Ml Syringe) 1 mg IVPUSH Q2H PRN PRN Reason: Pain Sodium Chloride (Normal Saline) 1,000 mls @ 200 mls/hr IV ASDIRECTED [facility] Last Admin: 08/22/21 10:01 Dose: 200 mls/hr Documented by: Insulin Aspart (Insulin Aspart 100 Units/Ml 3 Ml Pen) 0 unit SUBCUT Q6H [facility]; Protocol Last Admin: 08/22/21 13:56 Dose: 2 units Documented by: Insulin Glargine (Insulin Glargine,Human Rec. Analog 100 Units/Ml 3 Ml Pen) 30 units SUBCUT BEDTIME [facility] Last Admin: 01/06/22 22:25 Dose: 30 units Documented by: Ondansetron HCl (Ondansetron 4 Mg/2 Ml Sdv) 4 mg IVPUSH Q4H PRN PRN Reason: Nausea Last Admin: 08/21/21 22:22 Dose: 4 mg Documented by: Pantoprazole Sodium (Pantoprazole 40 Mg/10 Ml Syringe) 40 mg IVPUSH Q24H [facility] Last Admin: 08/21/21 20:47 Dose: 40 mg Documented by: Sodium Chloride (Sodium Chloride 0.9% 10 Ml Syringe) 10 ml FLUSH ASDIRECTED PRN PRN Reason: Keep Vein Open Last Admin: 08/21/21 16:32 Dose: 10 ml Documented by: Sodium Chloride (Sodium Chloride 0.9% 2.5 Ml Syringe) 2.5 ml FLUSH ASDIRECTED PRN PRN Reason: Keep Vein Open Last Admin: 08/21/21 16:32 Dose: 2.5 ml Documented by: Discontinued Medications Alum Haines/Mag Haines/Simeth XS 15 ml/ Metoclopramide HCl 5 mg/ Lidocaine HCl 5 ml 0 ml PO ONETIME ONE Stop: 08/21/21 16:01 Last Admin: 08/21/21 16:09 Dose: 25 each Documented by: Enoxaparin Sodium (Enoxaparin 40 Mg/0.4 Ml Syringe) 40 mg SUBCUT Q24H [facility] Last Admin: 08/21/21 20:48 Dose: 40 mg Documented by: Hydromorphone HCl (Hydromorphone 1 Mg/Ml Syringe) 1 mg IVPUSH ONETIME ONE Stop: 08/21/21 17:05 Last Admin: 08/21/21 17:18 Dose: 1 mg Documented by: Hydromorphone HCl (Hydromorphone 2 Mg/Ml Syringe) 1 mg IVPUSH Q2H PRN PRN Reason: Pain Last Admin: 08/22/21 06:19 Dose: 1 mg Documented by: Sodium Chloride (Normal Saline) 1,000 mls @ 999 mls/hr IV STAT ONE Stop: 08/21/21 16:59 Last Admin: 08/21/21 16:10 Dose: 999 mls/hr Documented by: Sodium Chloride (Normal Saline) 1,000 mls @ 999 mls/hr IV STAT ONE Stop: 08/21/21 19:42 Last Admin: 08/21/21 19:11 Dose: 999 mls/hr Documented by: Sodium Chloride (Normal Saline) 1,000 mls @ 999 mls/hr IV .Bolus ONE Stop: 08/21/21 19:57 Last Admin: 08/21/21 20:48 Dose: 999 mls/hr Documented by: Insulin Glargine (Insulin Glargine,Human Rec. Analog 100 Units/Ml 3 Ml Pen) 5 units SUBCUT BEDTIME [facility] Last Admin: 08/22/21 01:48 Dose: Not Given Documented by: Iopamidol (Iopamidol 755 Mg/Ml 500 Ml Multipack Bottle) 100 ml IVPUSH ONETIME STA Stop: 08/21/21 17:46 Last Admin: 08/21/21 17:46 Dose: 100 ml Documented by: Ketorolac Tromethamine (Ketorolac 30 Mg/Ml Sdv) 30 mg IVPUSH ONETIME ONE Stop: 08/21/21 16:02 Last Admin: 08/21/21 16:09 Dose: 30 mg Documented by: Ondansetron HCl (Ondansetron 4 Mg/2 Ml Sdv) 4 mg IVPUSH ONETIME ONE Stop: 08/21/21 16:00 Last Admin: 08/21/21 16:09 Dose: 4 mg Documented by: - Exam General: Alert, Oriented, Cooperative HEENT: Mucous Membr. Moist/[place] Neck: Trachea Midline Lungs: Clear to Auscultation, Normal Respiratory Effort Cardiovascular: Regular Rate, Regular Rhythm GI/Abdominal Exam: Normal Bowel Sounds, Tender - Patient Data Lab Results Last 24 hrs: Laboratory Results - last 24 hr 08/21/21 08/21/21 08/21/21 Range/Units 16:15 16:15 16:15 WBC 10.80 (4.0-11.0) K/uL RBC 5.12 (4.50-5.90) M/uL Hgb 15.0 (13.0-17.0) g/dL Hct 45.9 (38.0-50.0) % MCV 89.6 (80.0-98.0) fL MCH 29.3 (27.0-32.0) pg MCHC 32.7 (31.0-37.0) g/dL RDW Std Deviation 44.8 (28.0-62.0) fl RDW Coeff of Aislinn 14 (11.0-15.0) % Plt Count 190 (150-400) K/uL MPV 9.80 (7.40-12.00) fL Neut % (Auto) 78.0 (48.0-80.0) % Lymph % (Auto) 11.3 L (16.0-40.0) % Overton % (Auto) 10.5 (0.0-15.0) % Eos % (Auto) 0.1 (0.0-7.0) % Baso % (Auto) 0.1 (0.0-1.5) % Neut # (Auto) 8.4 H (1.4-5.7) K/uL Lymph # (Auto) 1.2 (0.6-2.4) K/uL Overton # (Auto) 1.1 H (0.0-0.8) K/uL Eos # (Auto) 0.0 (0.0-0.7) K/uL Baso # (Auto) 0.0 (0.0-0.1) K/uL Nucleated RBC % 0.0 /100WBC Nucleated RBCs # 0 K/uL Sodium 139 (136-148) mmol/L Potassium 3.7 (3.5-5.1) mmol/L Chloride 100 (98-107) mmol/L Carbon Dioxide 27.1 (21.0-32.0) mmol/L BUN 17 (7.0-18.0) mg/dL Creatinine 0.9 (0.8-1.3) mg/dL Est Cr Clr Drug Dosing 101.47 mL/min Estimated GFR (MDRD) > 60.0 ml/min Glucose 350 H (74-106) mg/dL POC Glucose (70-99) mg/dL Calcium 9.1 (8.5-10.1) mg/dL Total Bilirubin 1.7 H (0.2-1.0) mg/dL AST 683 H (15-37) IU/L ALT 698 H (14-63) IU/L Alkaline Phosphatase 154 H (46-116) U/L Troponin I < 0.050 (0.000-0.056) ng/mL Total Protein 7.3 (6.4-8.2) g/dL Albumin 3.6 (3.4-5.0) g/dL Globulin 3.7 (2.6-4.0) g/dL Albumin/Globulin Ratio 1.0 (0.9-1.6) Triglycerides (0-200) mg/dL Cholesterol (50-200) mg/dL HDL Cholesterol (40-60) mg/dL Cholesterol/HDL Ratio (3.3-6.0) Lipase 9178 H (73-393) U/L Urine Color Urine Appearance Urine pH (5.0-8.0) Ur Specific Simms (1.001-1.035) Urine Protein (NEGATIVE) mg/dL Urine Glucose (UA) (NEGATIVE) mg/dL Urine Ketones (NEGATIVE) mg/dL Urine Occult Blood (NEGATIVE) Urine Nitrite (NEGATIVE) Urine Bilirubin (NEGATIVE) Urine Urobilinogen (<2.0) EU/dL Ur Leukocyte Esterase (NEGATIVE) Urine RBC (0-2/HPF) Urine WBC (0-5/HPF) Ur Epithelial Cells (NONE-FEW) Urine Bacteria (NEGATIVE) Influenza Type A RNA (NEGATIVE) Influenza Type B RNA (NEGATIVE) SARS-CoV-2 RNA (ANGIE) (NEGATIVE) 08/21/21 08/21/21 08/21/21 Range/Units 16:20 16:30 21:30 WBC (4.0-11.0) K/uL RBC (4.50-5.90) M/uL Hgb (13.0-17.0) g/dL Hct (38.0-50.0) % MCV (80.0-98.0) fL MCH (27.0-32.0) pg MCHC (31.0-37.0) g/dL RDW Std Deviation (28.0-62.0) fl RDW Coeff of Aislinn (11.0-15.0) % Plt Count (150-400) K/uL MPV (7.40-12.00) fL Neut % (Auto) (48.0-80.0) % Lymph % (Auto) (16.0-40.0) % Overton % (Auto) (0.0-15.0) % Eos % (Auto) (0.0-7.0) % Baso % (Auto) (0.0-1.5) % Neut # (Auto) (1.4-5.7) K/uL Lymph # (Auto) (0.6-2.4) K/uL Overton # (Auto) (0.0-0.8) K/uL Eos # (Auto) (0.0-0.7) K/uL Baso # (Auto) (0.0-0.1) K/uL Nucleated RBC % /100WBC Nucleated RBCs # K/uL Sodium (136-148) mmol/L Potassium (3.5-5.1) mmol/L Chloride (98-107) mmol/L Carbon Dioxide (21.0-32.0) mmol/L BUN (7.0-18.0) mg/dL Creatinine (0.8-1.3) mg/dL Est Cr Clr Drug Dosing mL/min Estimated GFR (MDRD) ml/min Glucose (74-106) mg/dL POC Glucose 323 H (70-99) mg/dL Calcium (8.5-10.1) mg/dL Total Bilirubin (0.2-1.0) mg/dL AST (15-37) IU/L ALT (14-63) IU/L Alkaline Phosphatase (46-116) U/L Troponin I (0.000-0.056) ng/mL Total Protein (6.4-8.2) g/dL Albumin (3.4-5.0) g/dL Globulin (2.6-4.0) g/dL Albumin/Globulin Ratio (0.9-1.6) Triglycerides (0-200) mg/dL Cholesterol (50-200) mg/dL HDL Cholesterol (40-60) mg/dL Cholesterol/HDL Ratio (3.3-6.0) Lipase (73-393) U/L Urine Color YELLOW Urine Appearance CLEAR Urine pH 5.5 (5.0-8.0) Ur Specific Simms 1.020 (1.001-1.035) Urine Protein NEGATIVE (NEGATIVE) mg/dL Urine Glucose (UA) >=1000 (NEGATIVE) mg/dL Urine Ketones TRACE H (NEGATIVE) mg/dL Urine Occult Blood MODERATE H (NEGATIVE) Urine Nitrite NEGATIVE (NEGATIVE) Urine Bilirubin NEGATIVE (NEGATIVE) Urine Urobilinogen 0.2 (<2.0) EU/dL Ur Leukocyte Esterase NEGATIVE (NEGATIVE) Urine RBC 0-2 (0-2/HPF) Urine WBC NONE SEEN (0-5/HPF) Ur Epithelial Cells NOT SEEN (NONE-FEW) Urine Bacteria NOT SEEN (NEGATIVE) Influenza Type A RNA NEGATIVE (NEGATIVE) Influenza Type B RNA NEGATIVE (NEGATIVE) SARS-CoV-2 RNA (ANGIE) NEGATIVE (NEGATIVE) 08/22/21 08/22/21 08/22/21 Range/Units 00:57 05:37 05:37 WBC 4.92 (4.0-11.0) K/uL RBC 5.03 (4.50-5.90) M/uL Hgb 14.5 (13.0-17.0) g/dL Hct 45.3 (38.0-50.0) % MCV 90.1 (80.0-98.0) fL MCH 28.8 (27.0-32.0) pg MCHC 32.0 (31.0-37.0) g/dL RDW Std Deviation 46.3 (28.0-62.0) fl RDW Coeff of Aislinn 14 (11.0-15.0) % Plt Count 192 (150-400) K/uL MPV 9.90 (7.40-12.00) fL Neut % (Auto) 73.6 (48.0-80.0) % Lymph % (Auto) 18.7 (16.0-40.0) % Overton % (Auto) 7.5 (0.0-15.0) % Eos % (Auto) 0.0 (0.0-7.0) % Baso % (Auto) 0.2 (0.0-1.5) % Neut # (Auto) 3.6 (1.4-5.7) K/uL Lymph # (Auto) 0.9 (0.6-2.4) K/uL Overton # (Auto) 0.4 (0.0-0.8) K/uL Eos # (Auto) 0.0 (0.0-0.7) K/uL Baso # (Auto) 0.0 (0.0-0.1) K/uL Nucleated RBC % 0.0 /100WBC Nucleated RBCs # 0 K/uL Sodium 141 (136-148) mmol/L Potassium 4.2 (3.5-5.1) mmol/L Chloride 104 (98-107) mmol/L Carbon Dioxide 26.4 (21.0-32.0) mmol/L BUN 18 (7.0-18.0) mg/dL Creatinine 0.9 (0.8-1.3) mg/dL Est Cr Clr Drug Dosing 101.47 mL/min Estimated GFR (MDRD) > 60.0 ml/min Glucose 270 H (74-106) mg/dL POC Glucose 287 H (70-99) mg/dL Calcium 8.2 L (8.5-10.1) mg/dL Total Bilirubin 0.6 (0.2-1.0) mg/dL AST 221 H (15-37) IU/L ALT 502 H (14-63) IU/L Alkaline Phosphatase 124 H (46-116) U/L Troponin I (0.000-0.056) ng/mL Total Protein 6.6 (6.4-8.2) g/dL Albumin 3.1 L (3.4-5.0) g/dL Globulin 3.5 (2.6-4.0) g/dL Albumin/Globulin Ratio 0.9 (0.9-1.6) Triglycerides 467 H (0-200) mg/dL Cholesterol 178 (50-200) mg/dL HDL Cholesterol 37 L (40-60) mg/dL Cholesterol/HDL Ratio 4.8 (3.3-6.0) Lipase (73-393) U/L Urine Color Urine Appearance Urine pH (5.0-8.0) Ur Specific Simms (1.001-1.035) Urine Protein (NEGATIVE) mg/dL Urine Glucose (UA) (NEGATIVE) mg/dL Urine Ketones (NEGATIVE) mg/dL Urine Occult Blood (NEGATIVE) Urine Nitrite (NEGATIVE) Urine Bilirubin (NEGATIVE) Urine Urobilinogen (<2.0) EU/dL Ur Leukocyte Esterase (NEGATIVE) Urine RBC (0-2/HPF) Urine WBC (0-5/HPF) Ur Epithelial Cells (NONE-FEW) Urine Bacteria (NEGATIVE) Influenza Type A RNA (NEGATIVE) Influenza Type B RNA (NEGATIVE) SARS-CoV-2 RNA (ANGIE) (NEGATIVE) 08/22/21 08/22/21 Range/Units 06:06 11:31 WBC (4.0-11.0) K/uL RBC (4.50-5.90) M/uL Hgb (13.0-17.0) g/dL Hct (38.0-50.0) % MCV (80.0-98.0) fL MCH (27.0-32.0) pg MCHC (31.0-37.0) g/dL RDW Std Deviation (28.0-62.0) fl RDW Coeff of Aislinn (11.0-15.0) % Plt Count (150-400) K/uL MPV (7.40-12.00) fL Neut % (Auto) (48.0-80.0) % Lymph % (Auto) (16.0-40.0) % Overton % (Auto) (0.0-15.0) % Eos % (Auto) (0.0-7.0) % Baso % (Auto) (0.0-1.5) % Neut # (Auto) (1.4-5.7) K/uL Lymph # (Auto) (0.6-2.4) K/uL Overton # (Auto) (0.0-0.8) K/uL Eos # (Auto) (0.0-0.7) K/uL Baso # (Auto) (0.0-0.1) K/uL Nucleated RBC % /100WBC Nucleated RBCs # K/uL Sodium (136-148) mmol/L Potassium (3.5-5.1) mmol/L Chloride (98-107) mmol/L Carbon Dioxide (21.0-32.0) mmol/L BUN (7.0-18.0) mg/dL Creatinine (0.8-1.3) mg/dL Est Cr Clr Drug Dosing mL/min Estimated GFR (MDRD) ml/min Glucose (74-106) mg/dL POC Glucose 259 H 219 H (70-99) mg/dL Calcium (8.5-10.1) mg/dL Total Bilirubin (0.2-1.0) mg/dL AST (15-37) IU/L ALT (14-63) IU/L Alkaline Phosphatase (46-116) U/L Troponin I (0.000-0.056) ng/mL Total Protein (6.4-8.2) g/dL Albumin (3.4-5.0) g/dL Globulin (2.6-4.0) g/dL Albumin/Globulin Ratio (0.9-1.6) Triglycerides (0-200) mg/dL Cholesterol (50-200) mg/dL HDL Cholesterol (40-60) mg/dL Cholesterol/HDL Ratio (3.3-6.0) Lipase (73-393) U/L Urine Color Urine Appearance Urine pH (5.0-8.0) Ur Specific Simms (1.001-1.035) Urine Protein (NEGATIVE) mg/dL Urine Glucose (UA) (NEGATIVE) mg/dL Urine Ketones (NEGATIVE) mg/dL Urine Occult Blood (NEGATIVE) Urine Nitrite (NEGATIVE) Urine Bilirubin (NEGATIVE) Urine Urobilinogen (<2.0) EU/dL Ur Leukocyte Esterase (NEGATIVE) Urine RBC (0-2/HPF) Urine WBC (0-5/HPF) Ur Epithelial Cells (NONE-FEW) Urine Bacteria (NEGATIVE) Influenza Type A RNA (NEGATIVE) Influenza Type B RNA (NEGATIVE) SARS-CoV-2 RNA (ANGIE) (NEGATIVE) Result Diagrams: 08/22/21 05:37 08/22/21 05:37 Sepsis Event Note - Evaluation Sepsis Screening Result: No Definite Risk - Focused Exam Vital Signs: Vital Signs Temp Pulse Resp BP Pulse Ox 08/22/21 15:52 97.7 F 103 H 20 139/76 90 L 08/22/21 12:00 96.1 F L 99 20 127/81 93 L 08/22/21 08:12 97.8 F 101 H 20 138/74 94 L - Problem List & Annotations (1) Acute pancreatitis SNOMED Code(s): 756221278 Code(s): K85.90 - ACUTE PANCREATITIS WITHOUT NECROSIS OR INFECTION, UNSP Status: Acute Current Visit: Yes Qualifiers: Pancreatitis type: unspecified pancreatitis type Acute pancreatitis complication: unspecified Qualified Code(s): K85.90 - Acute pancreatitis without necrosis or infection, unspecified (2) History of diabetes mellitus, type II SNOMED Code(s): 181271893 Code(s): Z86.39 - PERSONAL HISTORY OF ENDO, NUTRITIONAL AND METABOLIC DISEASE Status: Acute Current Visit: Yes (3) Obesity SNOMED Code(s): 208599259, 344523246 Code(s): E66.9 - OBESITY, UNSPECIFIED Status: Chronic Current Visit: No - Problem List Review Problem List Initiated/Reviewed/Updated: Yes - My Orders Last 24 Hours: My Active Orders 08/22/21 09:40 Notify Provider Consults [RC] ASDIRECTED Consult to Physician [CONS] Routine - Plan Plan:: 1. Acute pancreatitis -Continue with Dilaudid 1 mg per IV route every 2 hours for pain -Transition from nothing per oral diet to clear liquid and see how he does -Patient had imaging done which revealed gallstones and mild edema of the gayle creas, Dr. Navarro, surgeon from the hospital saw the patient and recommended outpatient follow-up with a specialist in [place] 2. Diabetes mellitus -Continue NovoLog/glargine
[2021-08-22] MEDS: Pantoprazole 40 MG/10 ML Syringe IVPUSH SCH (19:02)
[2021-08-22] MEDS: Ondansetron 4 MG/2 ML SDV IVPUSH PRN (21:07)
[2021-08-22] MEDS: Insulin Glargine,Human Rec. Analog 100 Units/ML 3 ML Pen SUBCUT SCH (21:07)
[2021-08-23] MEDS: Insulin Aspart 100 Units/ML 3 ML Pen SUBCUT SCH ×4 (01:15→17:48)
[2021-08-23 07:43] LABS: BLOOD UREA NITROGEN,BUN 6 mg/dL (7.0-18.0); CHLORIDE,CL 101 mmol/L (98-107); GLUCOSE RANDOM 206 mg/dL (74-106); POTASSIUM,K 3.7 mmol/L (3.5-5.1); SODIUM,NA 138 mmol/L (136-148)
[2021-08-23] MEDS: Enoxaparin 40 MG/0.4 ML Syringe SUBCUT SCH ×2 (09:03→20:21)
[2021-08-23] MEDS: HYDROmorphone 1 MG/ML Syringe IVPUSH PRN ×2 (09:19→21:33)
[2021-08-23] MEDS: Sodium Chloride 0.9% 1,000 ML IV SCH ×2 (11:07→17:55)
--- NOTE | 2021-08-23 13:18 | PCM.PN ---
- General Info Date of Service: 08/23/21 - Review of Systems Systems Review Comment:: abdominal pain improving - Patient Data Vitals - Most Recent: Last Vital Signs Temp 36.4 C 08/23/21 08:00 Pulse 98 08/23/21 08:00 Resp 18 08/23/21 08:00 BP 140/76 08/23/21 08:00 Pulse Ox 94 L 08/23/21 08:00 Weight - Most Recent: 141.521 kg I&O - Last 24 Hours: Intake & Output 08/22/21 08/23/21 08/23/21 22:59 06:59 14:59 Intake Total 1340 1000 Output Total 580 1780 Balance -580 -440 1000 Lab Results Last 24 Hours: Laboratory Results - last 24 hr 08/22/21 08/22/21 08/23/21 Range/Units 05:39 17:20 01:10 WBC (4.0-11.0) K/uL RBC (4.50-5.90) M/uL Hgb (13.0-17.0) g/dL Hct (38.0-50.0) % MCV (80.0-98.0) fL MCH (27.0-32.0) pg MCHC (31.0-37.0) g/dL RDW Std Deviation (28.0-62.0) fl RDW Coeff of [place] (11.0-15.0) % Plt Count (150-400) K/uL MPV (7.40-12.00) fL Neut % (Auto) (48.0-80.0) % Lymph % (Auto) (16.0-40.0) % [place] % (Auto) (0.0-15.0) % Eos % (Auto) (0.0-7.0) % Baso % (Auto) (0.0-1.5) % Neut # (Auto) (1.4-5.7) K/uL Lymph # (Auto) (0.6-2.4) K/uL [place] # (Auto) (0.0-0.8) K/uL Eos # (Auto) (0.0-0.7) K/uL Baso # (Auto) (0.0-0.1) K/uL Nucleated RBC % /100WBC Nucleated RBCs # K/uL Sodium (136-148) mmol/L Potassium (3.5-5.1) mmol/L Chloride (98-107) mmol/L Carbon Dioxide (21.0-32.0) mmol/L BUN (7.0-18.0) mg/dL Creatinine (0.8-1.3) mg/dL Est Cr Clr Drug Dosing mL/min Estimated GFR (MDRD) ml/min Glucose (74-106) mg/dL POC Glucose 191 H 248 H (70-99) mg/dL Hemoglobin A1c 10.2 H (4.5 - 6.2) % Calcium (8.5-10.1) mg/dL Total Bilirubin (0.2-1.0) mg/dL AST (15-37) IU/L ALT (14-63) IU/L Alkaline Phosphatase (46-116) U/L Total Protein (6.4-8.2) g/dL Albumin (3.4-5.0) g/dL Globulin (2.6-4.0) g/dL Albumin/Globulin Ratio (0.9-1.6) 08/23/21 08/23/21 08/23/21 Range/Units 06:52 07:07 07:07 WBC 6.66 (4.0-11.0) K/uL RBC 4.59 (4.50-5.90) M/uL Hgb 13.4 (13.0-17.0) g/dL Hct 41.5 (38.0-50.0) % MCV 90.4 (80.0-98.0) fL MCH 29.2 (27.0-32.0) pg MCHC 32.3 (31.0-37.0) g/dL RDW Std Deviation 46.5 (28.0-62.0) fl RDW Coeff of [place] 14 (11.0-15.0) % Plt Count 151 (150-400) K/uL MPV 9.50 (7.40-12.00) fL Neut % (Auto) 69.3 (48.0-80.0) % Lymph % (Auto) 16.7 (16.0-40.0) % [place] % (Auto) 10.8 (0.0-15.0) % Eos % (Auto) 3.0 (0.0-7.0) % Baso % (Auto) 0.2 (0.0-1.5) % Neut # (Auto) 4.6 (1.4-5.7) K/uL Lymph # (Auto) 1.1 (0.6-2.4) K/uL [place] # (Auto) 0.7 (0.0-0.8) K/uL Eos # (Auto) 0.2 (0.0-0.7) K/uL Baso # (Auto) 0.0 (0.0-0.1) K/uL Nucleated RBC % 0.0 /100WBC Nucleated RBCs # 0 K/uL Sodium 138 (136-148) mmol/L Potassium 3.7 (3.5-5.1) mmol/L Chloride 101 (98-107) mmol/L Carbon Dioxide 27.0 (21.0-32.0) mmol/L BUN 6 L (7.0-18.0) mg/dL Creatinine 0.7 L (0.8-1.3) mg/dL Est Cr Clr Drug Dosing 130.46 mL/min Estimated GFR (MDRD) > 60.0 ml/min Glucose 206 H (74-106) mg/dL POC Glucose 210 H (70-99) mg/dL Hemoglobin A1c (4.5 - 6.2) % Calcium 7.6 L (8.5-10.1) mg/dL Total Bilirubin 0.6 (0.2-1.0) mg/dL AST 53 H (15-37) IU/L ALT 266 H (14-63) IU/L Alkaline Phosphatase 89 (46-116) U/L Total Protein 6.4 (6.4-8.2) g/dL Albumin 2.8 L (3.4-5.0) g/dL Globulin 3.6 (2.6-4.0) g/dL Albumin/Globulin Ratio 0.8 L (0.9-1.6) 08/23/21 Range/Units 11:16 WBC (4.0-11.0) K/uL RBC (4.50-5.90) M/uL Hgb (13.0-17.0) g/dL Hct (38.0-50.0) % MCV (80.0-98.0) fL MCH (27.0-32.0) pg MCHC (31.0-37.0) g/dL RDW Std Deviation (28.0-62.0) fl RDW Coeff of [place] (11.0-15.0) % Plt Count (150-400) K/uL MPV (7.40-12.00) fL Neut % (Auto) (48.0-80.0) % Lymph % (Auto) (16.0-40.0) % [place] % (Auto) (0.0-15.0) % Eos % (Auto) (0.0-7.0) % Baso % (Auto) (0.0-1.5) % Neut # (Auto) (1.4-5.7) K/uL Lymph # (Auto) (0.6-2.4) K/uL [place] # (Auto) (0.0-0.8) K/uL Eos # (Auto) (0.0-0.7) K/uL Baso # (Auto) (0.0-0.1) K/uL Nucleated RBC % /100WBC Nucleated RBCs # K/uL Sodium (136-148) mmol/L Potassium (3.5-5.1) mmol/L Chloride (98-107) mmol/L Carbon Dioxide (21.0-32.0) mmol/L BUN (7.0-18.0) mg/dL Creatinine (0.8-1.3) mg/dL Est Cr Clr Drug Dosing mL/min Estimated GFR (MDRD) ml/min Glucose (74-106) mg/dL POC Glucose 215 H (70-99) mg/dL Hemoglobin A1c (4.5 - 6.2) % Calcium (8.5-10.1) mg/dL Total Bilirubin (0.2-1.0) mg/dL AST (15-37) IU/L ALT (14-63) IU/L Alkaline Phosphatase (46-116) U/L Total Protein (6.4-8.2) g/dL Albumin (3.4-5.0) g/dL Globulin (2.6-4.0) g/dL Albumin/Globulin Ratio (0.9-1.6) Med Orders - Current: Current Medications Dextrose/Water (50% Dextrose In Water 50 Ml Syringe) 50 ml IVPUSH ASDIRECTED PRN PRN Reason: Hypoglycemia Enoxaparin Sodium (Enoxaparin 40 Mg/0.4 Ml Syringe) 40 mg SUBCUT Q12H [facility] Last Admin: 08/23/21 09:03 Dose: 40 mg Documented by: Glucagon (Glucagon,Human Recombinant 1 Mg Vial) 1 mg IM ASDIRECTED PRN PRN Reason: Hypoglycemia Hydromorphone HCl (Hydromorphone 1 Mg/Ml Syringe) 1 mg IVPUSH Q2H PRN PRN Reason: Pain Last Admin: 08/23/21 09:19 Dose: 1 mg Documented by: Sodium Chloride (Normal Saline) 1,000 mls @ 150 mls/hr IV ASDIRECTED JEANIE Last Admin: 08/23/21 11:07 Dose: 150 mls/hr Documented by: Insulin Aspart (Insulin Aspart 100 Units/Ml 3 Ml Pen) 0 unit SUBCUT Q6H [facility]; Protocol Last Admin: 08/23/21 11:59 Dose: 2 unit Documented by: Insulin Glargine (Insulin Glargine,Human Rec. Analog 100 Units/Ml 3 Ml Pen) 45 units SUBCUT BEDTIME [facility] Ondansetron HCl (Ondansetron 4 Mg/2 Ml Sdv) 4 mg IVPUSH Q4H PRN PRN Reason: Nausea Last Admin: 08/22/21 21:07 Dose: 4 mg Documented by: Pantoprazole Sodium (Pantoprazole 40 Mg/10 Ml Syringe) 40 mg IVPUSH Q24H [facility] Last Admin: 08/22/21 19:02 Dose: 40 mg Documented by: Sodium Chloride (Sodium Chloride 0.9% 10 Ml Syringe) 10 ml FLUSH ASDIRECTED PRN PRN Reason: Keep Vein Open Last Admin: 08/21/21 16:32 Dose: 10 ml Documented by: Sodium Chloride (Sodium Chloride 0.9% 2.5 Ml Syringe) 2.5 ml FLUSH ASDIRECTED PRN PRN Reason: Keep Vein Open Last Admin: 08/21/21 16:32 Dose: 2.5 ml Documented by: Discontinued Medications Alum [place]/Mag [place]/Simeth XS 15 ml/ Metoclopramide HCl 5 mg/ Lidocaine HCl 5 ml 0 ml PO ONETIME ONE Stop: 08/21/21 16:01 Last Admin: 08/21/21 16:09 Dose: 25 each Documented by: Enoxaparin Sodium (Enoxaparin 40 Mg/0.4 Ml Syringe) 40 mg SUBCUT Q24H [facility] Last Admin: 08/21/21 20:48 Dose: 40 mg Documented by: Hydromorphone HCl (Hydromorphone 1 Mg/Ml Syringe) 1 mg IVPUSH ONETIME ONE Stop: 08/21/21 17:05 Last Admin: 08/21/21 17:18 Dose: 1 mg Documented by: Hydromorphone HCl (Hydromorphone 2 Mg/Ml Syringe) 1 mg IVPUSH Q2H PRN PRN Reason: Pain Last Admin: 08/22/21 06:19 Dose: 1 mg Documented by: Sodium Chloride (Normal Saline) 1,000 mls @ 999 mls/hr IV STAT ONE Stop: 08/21/21 16:59 Last Admin: 08/21/21 16:10 Dose: 999 mls/hr Documented by: Sodium Chloride (Normal Saline) 1,000 mls @ 999 mls/hr IV STAT ONE Stop: 08/21/21 19:42 Last Admin: 08/21/21 19:11 Dose: 999 mls/hr Documented by: Sodium Chloride (Normal Saline) 1,000 mls @ 999 mls/hr IV .Bolus ONE Stop: 08/21/21 19:57 Last Admin: 08/21/21 20:48 Dose: 999 mls/hr Documented by: Sodium Chloride (Normal Saline) 1,000 mls @ 200 mls/hr IV ASDIRECTED [facility] Last Admin: 08/22/21 16:56 Dose: 200 mls/hr Documented by: Insulin Aspart (Insulin Aspart 100 Units/Ml 3 Ml Pen) 0 unit SUBCUT Q6H [facility]; Protocol Last Admin: 08/23/21 08:27 Dose: 2 units Documented by: Insulin Glargine (Insulin Glargine,Human Rec. Analog 100 Units/Ml 3 Ml Pen) 5 units SUBCUT BEDTIME [facility] Last Admin: 08/22/21 01:48 Dose: Not Given Documented by: Insulin Glargine (Insulin Glargine,Human Rec. Analog 100 Units/Ml 3 Ml Pen) 30 units SUBCUT BEDTIME [facility] Last Admin: 08/22/21 21:07 Dose: 30 units Documented by: Iopamidol (Iopamidol 755 Mg/Ml 500 Ml Multipack Bottle) 100 ml IVPUSH ONETIME STA Stop: 08/21/21 17:46 Last Admin: 08/21/21 17:46 Dose: 100 ml Documented by: Ketorolac Tromethamine (Ketorolac 30 Mg/Ml Sdv) 30 mg IVPUSH ONETIME ONE Stop: 08/21/21 16:02 Last Admin: 08/21/21 16:09 Dose: 30 mg Documented by: Ondansetron HCl (Ondansetron 4 Mg/2 Ml Sdv) 4 mg IVPUSH ONETIME ONE Stop: 08/21/21 16:00 Last Admin: 08/21/21 16:09 Dose: 4 mg Documented by: - Exam General: Alert, Oriented Lungs: Clear to Auscultation, Normal Respiratory Effort Cardiovascular: Regular Rate, Regular Rhythm GI/Abdominal Exam: Normal Bowel Sounds, Soft, Non-Tender Extremities: Non-Tender, No Pedal Edema Skin: Warm, Dry, Intact Neurological: No New Focal Deficit - Patient Data Lab Results Last 24 hrs: Laboratory Results - last 24 hr 08/22/21 08/22/21 08/23/21 Range/Units 05:39 17:20 01:10 WBC (4.0-11.0) K/uL RBC (4.50-5.90) M/uL Hgb (13.0-17.0) g/dL Hct (38.0-50.0) % MCV (80.0-98.0) fL MCH (27.0-32.0) pg MCHC (31.0-37.0) g/dL RDW Std Deviation (28.0-62.0) fl RDW Coeff of [place] (11.0-15.0) % Plt Count (150-400) K/uL MPV (7.40-12.00) fL Neut % (Auto) (48.0-80.0) % Lymph % (Auto) (16.0-40.0) % [place] % (Auto) (0.0-15.0) % Eos % (Auto) (0.0-7.0) % Baso % (Auto) (0.0-1.5) % Neut # (Auto) (1.4-5.7) K/uL Lymph # (Auto) (0.6-2.4) K/uL [place] # (Auto) (0.0-0.8) K/uL Eos # (Auto) (0.0-0.7) K/uL Baso # (Auto) (0.0-0.1) K/uL Nucleated RBC % /100WBC Nucleated RBCs # K/uL Sodium (136-148) mmol/L Potassium (3.5-5.1) mmol/L Chloride (98-107) mmol/L Carbon Dioxide (21.0-32.0) mmol/L BUN (7.0-18.0) mg/dL Creatinine (0.8-1.3) mg/dL Est Cr Clr Drug Dosing mL/min Estimated GFR (MDRD) ml/min Glucose (74-106) mg/dL POC Glucose 191 H 248 H (70-99) mg/dL Hemoglobin A1c 10.2 H (4.5 - 6.2) % Calcium (8.5-10.1) mg/dL Total Bilirubin (0.2-1.0) mg/dL AST (15-37) IU/L ALT (14-63) IU/L Alkaline Phosphatase (46-116) U/L Total Protein (6.4-8.2) g/dL Albumin (3.4-5.0) g/dL Globulin (2.6-4.0) g/dL Albumin/Globulin Ratio (0.9-1.6) 08/23/21 08/23/21 08/23/21 Range/Units 06:52 07:07 07:07 WBC 6.66 (4.0-11.0) K/uL RBC 4.59 (4.50-5.90) M/uL Hgb 13.4 (13.0-17.0) g/dL Hct 41.5 (38.0-50.0) % MCV 90.4 (80.0-98.0) fL MCH 29.2 (27.0-32.0) pg MCHC 32.3 (31.0-37.0) g/dL RDW Std Deviation 46.5 (28.0-62.0) fl RDW Coeff of [place] 14 (11.0-15.0) % Plt Count 151 (150-400) K/uL MPV 9.50 (7.40-12.00) fL Neut % (Auto) 69.3 (48.0-80.0) % Lymph % (Auto) 16.7 (16.0-40.0) % [place] % (Auto) 10.8 (0.0-15.0) % Eos % (Auto) 3.0 (0.0-7.0) % Baso % (Auto) 0.2 (0.0-1.5) % Neut # (Auto) 4.6 (1.4-5.7) K/uL Lymph # (Auto) 1.1 (0.6-2.4) K/uL [place] # (Auto) 0.7 (0.0-0.8) K/uL Eos # (Auto) 0.2 (0.0-0.7) K/uL Baso # (Auto) 0.0 (0.0-0.1) K/uL Nucleated RBC % 0.0 /100WBC Nucleated RBCs # 0 K/uL Sodium 138 (136-148) mmol/L Potassium 3.7 (3.5-5.1) mmol/L Chloride 101 (98-107) mmol/L Carbon Dioxide 27.0 (21.0-32.0) mmol/L BUN 6 L (7.0-18.0) mg/dL Creatinine 0.7 L (0.8-1.3) mg/dL Est Cr Clr Drug Dosing 130.46 mL/min Estimated GFR (MDRD) > 60.0 ml/min Glucose 206 H (74-106) mg/dL POC Glucose 210 H (70-99) mg/dL Hemoglobin A1c (4.5 - 6.2) % Calcium 7.6 L (8.5-10.1) mg/dL Total Bilirubin 0.6 (0.2-1.0) mg/dL AST 53 H (15-37) IU/L ALT 266 H (14-63) IU/L Alkaline Phosphatase 89 (46-116) U/L Total Protein 6.4 (6.4-8.2) g/dL Albumin 2.8 L (3.4-5.0) g/dL Globulin 3.6 (2.6-4.0) g/dL Albumin/Globulin Ratio 0.8 L (0.9-1.6) 08/23/21 Range/Units 11:16 WBC (4.0-11.0) K/uL RBC (4.50-5.90) M/uL Hgb (13.0-17.0) g/dL Hct (38.0-50.0) % MCV (80.0-98.0) fL MCH (27.0-32.0) pg MCHC (31.0-37.0) g/dL RDW Std Deviation (28.0-62.0) fl RDW Coeff of [place] (11.0-15.0) % Plt Count (150-400) K/uL MPV (7.40-12.00) fL Neut % (Auto) (48.0-80.0) % Lymph % (Auto) (16.0-40.0) % [place] % (Auto) (0.0-15.0) % Eos % (Auto) (0.0-7.0) % Baso % (Auto) (0.0-1.5) % Neut # (Auto) (1.4-5.7) K/uL Lymph # (Auto) (0.6-2.4) K/uL [place] # (Auto) (0.0-0.8) K/uL Eos # (Auto) (0.0-0.7) K/uL Baso # (Auto) (0.0-0.1) K/uL Nucleated RBC % /100WBC Nucleated RBCs # K/uL Sodium (136-148) mmol/L Potassium (3.5-5.1) mmol/L Chloride (98-107) mmol/L Carbon Dioxide (21.0-32.0) mmol/L BUN (7.0-18.0) mg/dL Creatinine (0.8-1.3) mg/dL Est Cr Clr Drug Dosing mL/min Estimated GFR (MDRD) ml/min Glucose (74-106) mg/dL POC Glucose 215 H (70-99) mg/dL Hemoglobin A1c (4.5 - 6.2) % Calcium (8.5-10.1) mg/dL Total Bilirubin (0.2-1.0) mg/dL AST (15-37) IU/L ALT (14-63) IU/L Alkaline Phosphatase (46-116) U/L Total Protein (6.4-8.2) g/dL Albumin (3.4-5.0) g/dL Globulin (2.6-4.0) g/dL Albumin/Globulin Ratio (0.9-1.6) Result Diagrams: 08/23/21 07:07 08/23/21 07:07 Sepsis Event Note - Evaluation Sepsis Screening Result: No Definite Risk - Focused Exam Vital Signs: Vital Signs Temp Pulse Resp BP Pulse Ox 08/23/21 08:00 36.4 C 98 18 140/76 94 L 08/23/21 05:25 36.4 C 96 17 133/74 92 L - Problem List & Annotations (1) Acute pancreatitis SNOMED Code(s): 767916249 Code(s): K85.90 - ACUTE PANCREATITIS WITHOUT NECROSIS OR INFECTION, UNSP Status: Acute Current Visit: Yes Qualifiers: Pancreatitis type: unspecified pancreatitis type Acute pancreatitis complication: unspecified Qualified Code(s): K85.90 - Acute pancreatitis without necrosis or infection, unspecified (2) History of diabetes mellitus, type II SNOMED Code(s): 041080203 Code(s): Z86.39 - PERSONAL HISTORY OF ENDO, NUTRITIONAL AND METABOLIC DISEASE Status: Acute Current Visit: Yes (3) Transaminitis SNOMED Code(s): 167557729, 935451944 Code(s): R74.01 - ELEVATION OF LEVELS OF LIVER TRANSAMINASE LEVELS Status: Acute Current Visit: Yes - Problem List Review Problem List Initiated/Reviewed/Updated: Yes - My Orders Last 24 Hours: My Active Orders 08/23/21 09:50 Sodium Chloride 0.9% [Normal Saline] 1,000 ml IV ASDIRECTED 08/23/21 12:00 Insulin Aspart [NovoLOG] 0 unit SUBCUT Q6H 08/23/21 21:00 Insulin Glarg,Human.Rec.Analog [LantUS Solostar] 45 units SUBCUT BEDTIME - Plan Plan:: 46 yo male admitted for acute pancreatitis. clinically improving, continue pain control and will advance diet as tolerated. Dr. Navarro has been consulted regarding gallstones and will help with referral due to eventual need of cholecystectomy.
[2021-08-23] MEDS: Pantoprazole 40 MG/10 ML Syringe IVPUSH SCH (18:53)
[2021-08-23] MEDS ORDERED: Insulin Glargine,Human Rec. Analog 100 Units/ML 3 ML Pen SUBCUT SCH (21:00)
[2021-08-24] MEDS: Insulin Aspart 100 Units/ML 3 ML Pen SUBCUT SCH ×3 (00:21→11:59)
[2021-08-24] MEDS: HYDROmorphone 1 MG/ML Syringe IVPUSH PRN (03:23)
[2021-08-24 06:37] LABS: BLOOD UREA NITROGEN,BUN 4 mg/dL (7.0-18.0); CARBON DIOXIDE,CO2 29.1 mmol/L (21.0-32.0); CHLORIDE,CL 101 mmol/L (98-107); GLUCOSE RANDOM 218 mg/dL (74-106); POTASSIUM,K 3.6 mmol/L (3.5-5.1); SODIUM,NA 138 mmol/L (136-148)
[2021-08-24] MEDS: Sodium Chloride 0.9% 1,000 ML IV SCH (07:45)
[2021-08-24] MEDS: Enoxaparin 40 MG/0.4 ML Syringe SUBCUT SCH (08:50)
[2021-08-24 12:04] VITALS: BP 160/80; PULSE 99
--- NOTE | 2021-08-24 13:48 | PCM.DCSUM1 ---
Discharge Summary - Discharge Data Discharge Date: 08/24/21 Discharge Disposition: Home, Self-Care 01 Condition: Stable - Referral to Home Health Primary Care Physician: JUICE Mae - Discharge Diagnosis/Problem(s) (1) Acute pancreatitis SNOMED Code(s): 306380981 ICD Code: K85.90 - ACUTE PANCREATITIS WITHOUT NECROSIS OR INFECTION, UNSP Status: Acute Current Visit: Yes Qualifiers: Pancreatitis type: unspecified pancreatitis type Acute pancreatitis complication: unspecified Qualified Code(s): K85.90 - Acute pancreatitis without necrosis or infection, unspecified (2) History of diabetes mellitus, type II SNOMED Code(s): 119699754 ICD Code: Z86.39 - PERSONAL HISTORY OF ENDO, NUTRITIONAL AND METABOLIC DISEASE Status: Acute Current Visit: Yes (3) Transaminitis SNOMED Code(s): 173862184, 568328566 ICD Code: R74.01 - ELEVATION OF LEVELS OF LIVER TRANSAMINASE LEVELS Status: Acute Current Visit: Yes - Patient Summary/Data Consults: Consultations 08/22/21 09:40 Consult to Physician [CONS] Routine Hospital Course: 46 yo male with pmh of DM, Hypertension, hyperlipidemia, and obesity who was admitted for acute gallstone pancreatitis. Patient presented with four day history of epigastric pain that worsens with food. In the ED he was noted to have a elevated LFTs, and lipase of 9178. CT scan of the abdomen showed acute pancreatitis. Ultrasound and MRI of the abdomen reported small gallstone with normal gallbladder. Patient was treated with IV fluids and bowel rest. His symptoms and transaminitis did improve. He is tolerating a clear liquid diet today. Dr. Navarro was consulted and recommended referral to Surgery in [place] due to his history of mesh repair. Patient was discharged home for follow up with his primary care provider. - Patient Instructions Diet: Diabetic Diet Activity: As Tolerated - Discharge Plan Home Medications: Home Meds Lisinopril 20 mg PO DAILY 07/25/15 [History] glipiZIDE [Glipizide ER] 10 mg PO DAILY 10/20/15 [History] Aspirin [Adult Low Dose Aspirin EC] 81 mg PO DAILY 06/24/19 [History] PARoxetine HCl [Paxil] 40 mg PO DAILY 06/24/19 [History] Acetaminophen [Tylenol] 650 mg PO Q4H PRN tablet 08/21/20 [Rx] Insulin Glargine,Hum.Rec.Anlog [Lantus Solostar] 86 units SQ BEDTIME 08/21/21 [History] Albuterol [Ventolin HFA] 2 inh IH Q4H PRN 08/22/21 [History] Multivitamin 1 tab PO DAILY 08/22/21 [History] Rosuvastatin [Crestor] 20 mg PO BEDTIME 08/22/21 [History] metFORMIN HCl [Metformin HCl ER] 1,000 unit PO BIDMEALS 08/22/21 [History] Patient Handouts: Acute Pancreatitis, [id number], Pancreatitis Eating Plan Referrals: Rachael Keenan PA [Primary Care Provider] - 08/29/21 1:00 pm - Discharge Summary/Plan Comment DC Time >30 min.: No Total # of Minutes for Discharge Time: 25 - Patient Data Vitals - Most Recent: Last Vital Signs Temp 36.5 C 08/24/21 11:00 Pulse 99 08/24/21 11:00 Resp 16 08/24/21 11:00 BP 160/80 H 08/24/21 11:00 Pulse Ox 96 08/24/21 11:00 Weight - Most Recent: 141.521 kg I&O - Last 24 hours: Intake & Output 08/23/21 08/24/21 08/24/21 22:59 06:59 14:59 Intake Total 2280 2840 1000 Output Total 1550 2700 Balance 115 846 9983 Lab Results - Last 24 hrs: Laboratory Results - last 24 hr 08/24/21 08/24/21 08/24/21 Range/Units 00:15 05:11 06:09 WBC 6.85 (4.0-11.0) K/uL RBC 4.30 L (4.50-5.90) M/uL Hgb 12.6 L (13.0-17.0) g/dL Hct 39.2 (38.0-50.0) % MCV 91.2 (80.0-98.0) fL MCH 29.3 (27.0-32.0) pg MCHC 32.1 (31.0-37.0) g/dL RDW Std Deviation 46.3 (28.0-62.0) fl RDW Coeff of [place] 14 (11.0-15.0) % Plt Count 133 L (150-400) K/uL MPV 9.80 (7.40-12.00) fL Neut % (Auto) 64.7 (48.0-80.0) % Lymph % (Auto) 18.8 (16.0-40.0) % [place] % (Auto) 10.9 (0.0-15.0) % Eos % (Auto) 5.5 (0.0-7.0) % Baso % (Auto) 0.1 (0.0-1.5) % Neut # (Auto) 4.4 (1.4-5.7) K/uL Lymph # (Auto) 1.3 (0.6-2.4) K/uL [place] # (Auto) 0.8 (0.0-0.8) K/uL Eos # (Auto) 0.4 (0.0-0.7) K/uL Baso # (Auto) 0.0 (0.0-0.1) K/uL Nucleated RBC % 0.0 /100WBC Nucleated RBCs # 0 K/uL Sodium (136-148) mmol/L Potassium (3.5-5.1) mmol/L Chloride (98-107) mmol/L Carbon Dioxide (21.0-32.0) mmol/L BUN (7.0-18.0) mg/dL Creatinine (0.8-1.3) mg/dL Est Cr Clr Drug Dosing mL/min Estimated GFR (MDRD) ml/min Glucose (74-106) mg/dL POC Glucose 179 H 200 H (70-99) mg/dL Calcium (8.5-10.1) mg/dL Total Bilirubin (0.2-1.0) mg/dL AST (15-37) IU/L ALT (14-63) IU/L Alkaline Phosphatase (46-116) U/L Total Protein (6.4-8.2) g/dL Albumin (3.4-5.0) g/dL Globulin (2.6-4.0) g/dL Albumin/Globulin Ratio (0.9-1.6) 08/24/21 08/24/21 Range/Units 06:09 11:54 WBC (4.0-11.0) K/uL RBC (4.50-5.90) M/uL Hgb (13.0-17.0) g/dL Hct (38.0-50.0) % MCV (80.0-98.0) fL MCH (27.0-32.0) pg MCHC (31.0-37.0) g/dL RDW Std Deviation (28.0-62.0) fl RDW Coeff of [place]isl[place] (11.0-15.0) % Plt Count (150-400) K/uL MPV (7.40-12.00) fL Neut % (Auto) (48.0-80.0) % Lymph % (Auto) (16.0-40.0) % [place] % (Auto) (0.0-15.0) % Eos % (Auto) (0.0-7.0) % Baso % (Auto) (0.0-1.5) % Neut # (Auto) (1.4-5.7) K/uL Lymph # (Auto) (0.6-2.4) K/uL [place] # (Auto) (0.0-0.8) K/uL Eos # (Auto) (0.0-0.7) K/uL Baso # (Auto) (0.0-0.1) K/uL Nucleated RBC % /100WBC Nucleated RBCs # K/uL Sodium 138 (136-148) mmol/L Potassium 3.6 (3.5-5.1) mmol/L Chloride 101 (98-107) mmol/L Carbon Dioxide 29.1 (21.0-32.0) mmol/L BUN 4 L (7.0-18.0) mg/dL Creatinine 0.7 L (0.8-1.3) mg/dL Est Cr Clr Drug Dosing 130.46 mL/min Estimated GFR (MDRD) > 60.0 ml/min Glucose 218 H (74-106) mg/dL POC Glucose 226 H (70-99) mg/dL Calcium 7.5 L (8.5-10.1) mg/dL Total Bilirubin 0.4 (0.2-1.0) mg/dL AST 23 (15-37) IU/L ALT 159 H (14-63) IU/L Alkaline Phosphatase 79 (46-116) U/L Total Protein 6.2 L (6.4-8.2) g/dL Albumin 2.5 L (3.4-5.0) g/dL Globulin 3.7 (2.6-4.0) g/dL Albumin/Globulin Ratio 0.7 L (0.9-1.6) Med Orders - Current: Current Medications Dextrose/Water (50% Dextrose In Water 50 Ml Syringe) 50 ml IVPUSH ASDIRECTED PRN PRN Reason: Hypoglycemia Enoxaparin Sodium (Enoxaparin 40 Mg/0.4 Ml Syringe) 40 mg SUBCUT Q12H [facility] Last Admin: 08/24/21 08:50 Dose: 40 mg Documented by: Glucagon (Glucagon,Human Recombinant 1 Mg Vial) 1 mg IM ASDIRECTED PRN PRN Reason: Hypoglycemia Hydromorphone HCl (Hydromorphone 1 Mg/Ml Syringe) 1 mg IVPUSH Q2H PRN PRN Reason: Pain Last Admin: 08/24/21 03:23 Dose: 1 mg Documented by: Sodium Chloride (Normal Saline) 1,000 mls @ 150 mls/hr IV ASDIRECTED JEANIE Last Admin: 08/24/21 07:45 Dose: 150 mls/hr Documented by: Insulin Aspart (Insulin Aspart 100 Units/Ml 3 Ml Pen) 0 unit SUBCUT Q6H [facility]; Protocol Last Admin: 08/24/21 11:59 Dose: 2 unit Documented by: Insulin Glargine (Insulin Glargine,Human Rec. Analog 100 Units/Ml 3 Ml Pen) 45 units SUBCUT BEDTIME JEANIE Last Admin: 08/23/21 20:20 Dose: 45 units Documented by: Ondansetron HCl (Ondansetron 4 Mg/2 Ml Sdv) 4 mg IVPUSH Q4H PRN PRN Reason: Nausea Last Admin: 08/22/21 21:07 Dose: 4 mg Documented by: Pantoprazole Sodium (Pantoprazole 40 Mg/10 Ml Syringe) 40 mg IVPUSH Q24H JEANIE Last Admin: 08/23/21 18:53 Dose: 40 mg Documented by: Sodium Chloride (Sodium Chloride 0.9% 10 Ml Syringe) 10 ml FLUSH ASDIRECTED PRN PRN Reason: Keep Vein Open Last Admin: 08/21/21 16:32 Dose: 10 ml Documented by: Sodium Chloride (Sodium Chloride 0.9% 2.5 Ml Syringe) 2.5 ml FLUSH ASDIRECTED PRN PRN Reason: Keep Vein Open Last Admin: 08/21/21 16:32 Dose: 2.5 ml Documented by: Discontinued Medications Alum [place]/Mag [place]/Simeth XS 15 ml/ Metoclopramide HCl 5 mg/ Lidocaine HCl 5 ml 0 ml PO ONETIME ONE Stop: 08/21/21 16:01 Last Admin: 08/21/21 16:09 Dose: 25 each Documented by: Enoxaparin Sodium (Enoxaparin 40 Mg/0.4 Ml Syringe) 40 mg SUBCUT Q24H JEANIE Last Admin: 08/21/21 20:48 Dose: 40 mg Documented by: Hydromorphone HCl (Hydromorphone 1 Mg/Ml Syringe) 1 mg IVPUSH ONETIME ONE Stop: 08/21/21 17:05 Last Admin: 08/21/21 17:18 Dose: 1 mg Documented by: Hydromorphone HCl (Hydromorphone 2 Mg/Ml Syringe) 1 mg IVPUSH Q2H PRN PRN Reason: Pain Last Admin: 08/22/21 06:19 Dose: 1 mg Documented by: Sodium Chloride (Normal Saline) 1,000 mls @ 999 mls/hr IV STAT ONE Stop: 08/21/21 16:59 Last Admin: 08/21/21 16:10 Dose: 999 mls/hr Documented by: Sodium Chloride (Normal Saline) 1,000 mls @ 999 mls/hr IV STAT ONE Stop: 08/21/21 19:42 Last Admin: 08/21/21 19:11 Dose: 999 mls/hr Documented by: Sodium Chloride (Normal Saline) 1,000 mls @ 999 mls/hr IV .Bolus ONE Stop: 08/21/21 19:57 Last Admin: 08/21/21 20:48 Dose: 999 mls/hr Documented by: Sodium Chloride (Normal Saline) 1,000 mls @ 200 mls/hr IV ASDIRECTED JEANIE Last Admin: 08/22/21 16:56 Dose: 200 mls/hr Documented by: Insulin Aspart (Insulin Aspart 100 Units/Ml 3 Ml Pen) 0 unit SUBCUT Q6H JEANIE; Protocol Last Admin: 08/23/21 08:27 Dose: 2 units Documented by: Insulin Glargine (Insulin Glargine,Human Rec. Analog 100 Units/Ml 3 Ml Pen) 5 units SUBCUT BEDTIME JEANIE Last Admin: 08/22/21 01:48 Dose: Not Given Documented by: Insulin Glargine (Insulin Glargine,Human Rec. Analog 100 Units/Ml 3 Ml Pen) 30 units SUBCUT BEDTIME [facility] Last Admin: 08/22/21 21:07 Dose: 30 units Documented by: Iopamidol (Iopamidol 755 Mg/Ml 500 Ml Multipack Bottle) 100 ml IVPUSH ONETIME STA Stop: 08/21/21 17:46 Last Admin: 08/21/21 17:46 Dose: 100 ml Documented by: Ketorolac Tromethamine (Ketorolac 30 Mg/Ml Sdv) 30 mg IVPUSH ONETIME ONE Stop: 08/21/21 16:02 Last Admin: 08/21/21 16:09 Dose: 30 mg Documented by: Ondansetron HCl (Ondansetron 4 Mg/2 Ml Sdv) 4 mg IVPUSH ONETIME ONE Stop: 08/21/21 16:00 Last Admin: 08/21/21 16:09 Dose: 4 mg Documented by:
== END 2021-08-24 14:00 | disposition home or self-care (01) | DRG 282 ==
LOC: MW.ED 15:45 → MW.MS 18:41
PROVIDERS: ADMIT Internal Medicine; ATTEND Internal Medicine
DX: K85.10 Biliary acute pancreatitis without necrosis or infection (principal); R74.01 Elevation of levels of liver transaminase levels; E11.9 Type 2 diabetes mellitus without complications; I10 Essential (primary) hypertension; E78.5 Hyperlipidemia, unspecified; E78.00 Pure hypercholesterolemia, unspecified; J45.909 Unspecified asthma, uncomplicated; Z20.822 Contact with and (suspected) exposure to COVID-19; F41.9 Anxiety disorder, unspecified; F32.A Depression, unspecified; M19.90 Unspecified osteoarthritis, unspecified site; E66.01 Morbid (severe) obesity due to excess calories; Z91.09 Other allergy status, other than to drugs and biological substances; Z79.82 Long term (current) use of aspirin; Z79.4 Long term (current) use of insulin; Z79.899 Other long term (current) drug therapy; Z68.42 Body mass index [BMI] 45.0-49.9, adult; Z98.890 Other specified postprocedural states
CPT/HCPCS: 0240U; 36415; 71045; 71045-26; 74177; 74177-26; 74181; 74181-26; 76705; 76705-26; 80053; 80061; 81001; 82947; 83036; 83690; 84484; 85025; 93005; 96374; 96375; 96376; 99285-25; A9270-GY; C9113; J1170; J1650; J1815-GY; J1885; J2405; J7030; Q9967

== ENCOUNTER 2021-12-17 09:37 | Emergency (ER) | payer BC ==
[2021-12-17] MEDS ORDERED: Aspirin 81 MG Tab.Chew PO ONE (09:47)
[2021-12-17 09:56] VITALS: PULSE 82
[2021-12-17 10:23] LABS: BLOOD UREA NITROGEN,BUN 20 mg/dL (7.0-18.0); CARBON DIOXIDE,CO2 26.7 mmol/L (21.0-32.0); CHLORIDE,CL 99 mmol/L (98-107); GLUCOSE RANDOM 194 mg/dL (74-106); POTASSIUM,K 4.6 mmol/L (3.5-5.1); SODIUM,NA 136 mmol/L (136-148)
[2021-12-17 11:20] VITALS: BP 143/84
== END 2021-12-17 11:20 | disposition home or self-care (01) ==
LOC: MW.ED 09:37
DX: R07.9 Chest pain, unspecified (principal); E78.00 Pure hypercholesterolemia, unspecified; I10 Essential (primary) hypertension; K21.9 Gastro-esophageal reflux disease without esophagitis; E11.9 Type 2 diabetes mellitus without complications; Z79.4 Long term (current) use of insulin; Z91.048 Other nonmedicinal substance allergy status; Z79.899 Other long term (current) drug therapy
CPT/HCPCS: 36415; 71045; 80053; 84484; 85025; 93005; 99285; A9270